=== PATIENT | male | born 1950 | race Caucasian/White ===

== ENCOUNTER 2017-08-20 10:19 | Emergency (ER) | payer MEDICARE, OTHER ==
--- NOTE | 2017-08-20 13:03 | ED Physician Documentation ---
PD HPI SKIN - Stated complaint Stated Complaint: CHEST WOUNDS BLEEDING - Chief complaint Chief Complaint: General - History obtained from History obtained from: Patient - History of Present Illness Timing - onset: How many weeks ago (several) Timing - duration: Weeks Timing - details: Gradual onset (he says he has had sore on chest that has raised edges and he "picks at it" sometimes. It has not gone away. The past 2-3 weeks he has had growth of tissue/swelling to the area and it has started bleeding the past couple of days.) Location: Chest (upper sternal area.) Quality / character: Swelling. No: Painful, Vesicular Associated symptoms: No: Fever, Joint pain Similar symptoms before: Has not had sx before Recently seen: Not recently seen (he says he went to Derm office and tried to get appt but was given one couple weeks out. PCP office gave appt for over a week.) Review of Systems Constitutional: denies: Fever, Chills Skin: reports: Lesions Endocrine: denies: Weight loss PD PAST MEDICAL HISTORY - Past Medical History Cardiovascular: None Respiratory: None Neuro: None Endocrine/Autoimmune: None - Present Medications Home Medications: Ambulatory Orders Medication Instructions Recorded Confirmed Mupirocin 1 applic TP TID #15 oint...g. 08/20/17 - Allergies Allergies/Adverse Reactions: Allergies Allergy/AdvReac Type Severity Reaction Status Date / Time codeine AdvReac Nausea Verified 08/20/17 10:32 - Living Situation Living Situation: reports: Alone Living Arrangement: reports: At home PD ED PE NORMAL - Vitals Vital signs reviewed: Yes - General General: Alert and oriented X 3, No acute distress, Well developed/nourished - Neck Neck: Supple, no meningeal sign, No adenopathy - Cardiac Cardiac: RRR, No murmur - Respiratory Respiratory: No respiratory distress, Clear bilaterally - Derm Derm: Normal color, Warm and dry, Other (upper sternal area has rounded skin lesion with raised edges about 2 1/2 cm rounded. The center of it has raised area of red granulation tissue that is some tender, but hyperemic and has oozing of blood at spots. No purulence and does not look infected. The lesion is freely moveable from the structures underneath, so just dermal lesion. ) Results - Vitals Vitals: Oxygen O2 Source Room air Procedures - Laceration (location) upper sternal chest Length in cm: 3 (incisional biopsy with closure) Wound type: Into subcut fat, Clean, Other (local anesth and then I made eliptical incision clearing lesion margins by 2-3 mm to clear skin. Removed it en whole and sent in specimen container to lab.) Neurovascular status: Sensory intact Anesthesia: Lidocaine 1% with epi Wound Preparation: Chlorhexadine Deep layer closure: Vicryl, size #-0 - enter number (6), Other (with 2 sutures of small venous bleeding sites. Monsels solution also used to stop capillary bleeding.) Skin layer closure: Nylon, Running, Size #-0 - enter number (4) Other: Patient tolerated well, No complications, Neurovascular intact, Dressing applied, Tetanus UTD Complexity: Intermediate PD MEDICAL DECISION MAKING - ED course Complexity details: considered differential (he has had small sore "dime sized" that had raised edges and he said he would "pick at it" and is now with swollen granulation tissue and some bleeding of it. Seemed reasonable to just excise it and close skin. He says he tried to get appt with Derm but was 2 weeks out and PCP was a week or more. Talked with patient and he would prefer that. ), d/w patient - Sepsis Event Vital Signs: Oxygen O2 Source Room air Departure - Departure Disposition: 01 Home, Self Care Clinical Impression: Skin lesion of chest wall, Status post excisional biopsy Condition: Stable Record reviewed to determine appropriate education?: Yes Instructions: ED Laceration All Follow-Up: LEIGH ANN RUIZ [Primary Care Provider] - Prescriptions: Mupirocin 1 applic TP TID #15 oint...g. Comments: It is okay to wash and shower. Clean off the wound twice a day with soap and water, or peroxide and water. Apply some antibiotic ointment to it to keep it moist. Also to watch for signs of infection such as purulence, redness or increasing pain. Return to your primary care or the ER at the specified time for suture removal. Tylenol or ibuprofen if needed for pains. Suture removal approximately 10 days. We presumably should have the pathology report back on the lesion at that time as well. Discharge Date/Time: 08/20/17 14:37
[2017-08-20] MEDS ORDERED: MUPIROCIN 2% OINT 1 GM TOP STA (13:59)
[2017-08-20 14:13] VITALS: BP 148/90
== END 2017-08-20 14:37 | disposition home or self-care (01) ==
LOC: ED 10:19
DX: L98.9 Disorder of the skin and subcutaneous tissue, unspecified (principal); Z98.890 Other specified postprocedural states
CPT/HCPCS: 12032; 99283; A9270

== ENCOUNTER 2017-08-31 13:01 | Emergency (ER) | payer MEDICARE, OTHER ==
[2017-08-31 13:17] VITALS: BP 117/69
--- NOTE | 2017-08-31 13:34 | ED Physician Documentation ---
PD HPI WOUND RECHECK - Stated complaint Stated Complaint: WOUND CHECK - Chief complaint Chief Complaint: Wound - Histroy obtained from History obtained from: Patient - History of Present Illness Location: Chest Pain level max: 0 Pain level now: 0 Associated symptoms: No: Fever, Redness, Swelling, Drainage Recently seen: Emergency Dept (08/20) - Additional information Additional information: Patient is a 67-year-old male who presents to the emergency department stating that he had a growth removed from his chest a few weeks ago which was positive for squamous cell carcinoma. Was informed to follow-up with his primary care provider and/or dermatology, but came here instead. Review of Systems Constitutional: denies: Fever, Chills Respiratory: denies: Cough GI: denies: Nausea, Vomiting, Diarrhea Skin: denies: Rash Musculoskeletal: denies: Neck pain, Back pain Neurologic: denies: Headache PD PAST MEDICAL HISTORY - Past Medical History Cardiovascular: None Respiratory: None Neuro: None Endocrine/Autoimmune: None - Past Surgical History Past Surgical History: Yes Ortho: Other - Present Medications Home Medications: Ambulatory Orders Medication Instructions Recorded Confirmed Mupirocin 1 applic TP TID #15 oint...g. 08/20/17 - Allergies Allergies/Adverse Reactions: Allergies Allergy/AdvReac Type Severity Reaction Status Date / Time codeine AdvReac Nausea Verified 08/20/17 10:32 - Social History Does the pt smoke?: No Smoking Status: Never smoker Does the pt drink ETOH?: No Does the pt have substance abuse?: No - Immunizations Immunizations are current?: No PD ED PE NORMAL - Vitals Vital signs reviewed: Yes - General General: Alert and oriented X 3, No acute distress - HEENT HEENT: Moist mucous membranes - Neck Neck: Supple, no meningeal sign - Cardiac Cardiac: RRR - Respiratory Respiratory: No respiratory distress, Clear bilaterally - Derm Derm: Warm and dry, Other (healing incision to anterior chest wall. slight bleeding. sutures in place.) - Neuro Neuro: Alert and oriented X 3 - Psych Psych: Normal mood, Normal affect Results - Vitals Vitals: Vital Signs - 24 hr 08/31/17 13:13 Temperature 36.7 C Heart Rate 81 Respiratory 18 Rate Blood Pressure 117/69 O2 Saturation 98 Oxygen O2 Source Room air PD MEDICAL DECISION MAKING - ED course Complexity details: reviewed old records, considered differential, d/w patient, d/w PMD ED course: Patient is a 67-year-old male who presents to the emergency department after having a squamous cell carcinoma removed off of his chest wall here approximately 11 days ago. Sutures did not appear ready to be removed at this time. I did call his primary care provider, Dr. Ruiz who will put in a urgent dermatology referral for him. Patient counseled regarding signs and symptoms for which I believe and urgent re-evaluation would be necessary. Patient with good understanding of and agreement to plan and is comfortable going home at this time This document was made in part using voice recognition software. While efforts are made to proofread this document, sound alike and grammatical errors may occur. - Sepsis Event Vital Signs: Vital Signs - 24 hr 08/31/17 13:13 Temperature 36.7 C Heart Rate 81 Respiratory 18 Rate Blood Pressure 117/69 O2 Saturation 98 Oxygen O2 Source Room air Departure - Departure Disposition: 01 Home, Self Care Clinical Impression: Squamous cell carcinoma Condition: Good Instructions: Cancer Skin Types Follow-Up: LEIGH ANN RUIZ [Primary Care Provider] - Within 1 week Comments: Follow-up with your doctor or dermatology within 1 week for suture removal. You also need to follow-up with dermatology about the squamous cell carcinoma to see if further treatment is indicated. Make sure to take the pathology report with you. Your doctor placed a urgent referral that should be visible on the [facility] website within 2 days. Discharge Date/Time: 08/31/17 14:20
== END 2017-08-31 14:20 | disposition home or self-care (01) ==
LOC: ED 13:01
DX: C44.529 Squamous cell carcinoma of skin of other part of trunk (principal)
CPT/HCPCS: 99281; 99282

== ENCOUNTER 2018-06-22 18:04 | Outpatient (CLI) | payer MEDICARE, OTHER | END 2018-06-22 18:05 | disposition critical access hospital (66) | LOC: EMS 18:04 | PROVIDERS: ATTEND Surgery | DX: M25.552 Pain in left hip (principal); W01.0XXA Fall on same level from slipping, tripping and stumbling without subsequent striking against object, initial encounter; Y93.K1 Activity, walking an animal | CPT/HCPCS: A0425; A0427 ==

== ENCOUNTER 2018-06-22 18:15 | Inpatient (IN) | payer MEDICARE, OTHER ==
--- NOTE | 2018-06-22 18:36 | ED Physician Documentation ---
History of Present Illness - Stated complaint Stated Complaint: GLF - LEFT HIP INJURY - Chief complaint Chief Complaint: Trauma Ext - History obtained from History obtained from: Patient, EMS - History of Present Illness Timing: Today ( 68-year-old gentleman with history of hip fracture on the right. He fell a week ago and hit his head. He did not seek medical attention at the time. Today he was walking and fell impacting his left hip onto concrete with severe pain but declines pain medication and initial evaluation as he had some on route with the ambulance. He did not hit his head today. He denies drug or alcohol use.) Review of Systems Constitutional: reports: Reviewed and negative Nose: reports: Reviewed and negative Cardiac: reports: Reviewed and negative Respiratory: reports: Reviewed and negative PD PAST MEDICAL HISTORY - Past Medical History Cardiovascular: None Respiratory: None Neuro: None Endocrine/Autoimmune: None Derm: Other - Past Surgical History Past Surgical History: Yes Ortho: Other - Present Medications Home Medications: Ambulatory Orders Medication Instructions Recorded Confirmed No Known Home Medications 06/22/18 06/22/18 - Allergies Allergies/Adverse Reactions: Allergies Allergy/AdvReac Type Severity Reaction Status Date / Time codeine AdvReac Nausea Verified 06/22/18 18:23 - Social History Does the pt smoke?: No Smoking Status: Never smoker Does the pt drink ETOH?: No Does the pt have substance abuse?: No - Immunizations Immunizations are current?: No PD ED PE NORMAL - Vitals Vital signs reviewed: Yes - General General: Alert and oriented X 3, No acute distress, Other (He is somewhat disheveled with poor dentition.) - HEENT HEENT: PERRL, EOMI, Other (There is an abrasion on the left occiput) - Neck Neck: Supple, no meningeal sign, No bony TTP - Cardiac Cardiac: RRR, No murmur - Respiratory Respiratory: No respiratory distress, Clear bilaterally - Abdomen Abdomen: Normal bowel sounds, Soft, Non tender - Back Back: No CVA TTP, No spinal TTP - Extremities Extremities: Other (Left hip is shortened and externally rotated and quite tender. No other lower extremity or any extremity tenderness.) - Neuro Neuro: Alert and oriented X 3, Normal speech - Psych Psych: Normal mood, Normal affect Results - Vitals Vitals: Vital Signs - 24 hr 06/22/18 18:20 Temperature 35.7 C L Heart Rate 78 Respiratory 20 Rate Blood Pressure 142/99 H O2 Saturation 96 Oxygen O2 Source Room air - Labs Labs: Laboratory Tests 06/22/18 06/22/18 06/22/18 18:46 18:46 18:46 WBC 7.8 RBC 4.19 L Hgb 12.1 L Hct 36.1 L MCV 86.1 MCH 28.9 MCHC 33.5 RDW 15.8 H Plt Count 185 MPV 8.7 Neut # (Auto) 5.7 Lymph # (Auto) 1.1 L [place] # (Auto) 0.8 Eos # (Auto) 0.1 Baso # (Auto) 0.0 Absolute Nucleated RBC 0.00 Nucleated RBC % 0.0 PT 12.1 INR 1.1 Sodium 135 Potassium 4.0 Chloride 101 Carbon Dioxide 24 Anion Gap 10.0 BUN 26 H Creatinine 0.9 Estimated GFR (MDRD) 84 L Glucose 84 Calcium 8.4 L Total Bilirubin 0.5 AST 39 ALT 31 Alkaline Phosphatase 73 Total Protein 6.9 Albumin 3.4 Globulin 3.5 Albumin/Globulin Ratio 1.0 Lipase 33 - Rads (name of study) 1v chest Radiology: EMP read contemporaneously (NAD) CT C spine Radiology: EMP read contemporaneously (degen chgs) L Hip XR Radiology: EMP read contemporaneously (Subcapital left femoral neck fracture) CT Head Radiology: EMP read contemporaneously (NAD, old zygoma frx) PD MEDICAL DECISION MAKING - Consults Consults: Consulted (name) (Zohaib Ayers, assembly person ortho at 192, defers to med for admit, npo p mn), Discussed case with (Dr Timmons for admit at 1944) Departure - Departure Disposition: 67 [facility] DC/Xfer Clinical Impression: Femoral neck fracture Qualifiers: Encounter type: initial encounter Fracture type: closed Laterality: left Qualified Code(s): S72.002A - Fracture of unspecified part of neck of left femur, initial encounter for closed fracture Head injury Qualifiers: Encounter type: initial encounter Qualified Code(s): S09.90XA - Unspecified injury of head, initial encounter Condition: Stable
[2018-06-22 18:53] LABS: BASOPHILS % (AUTO) 0.5 %; EOSINOPHILS # (AUTO) 0.1 10^3/uL (0.0-0.7); EOSINOPHILS % (AUTO) 1.4 %; HGB - HEMOGLOBIN 12.1 g/dL (14.0-18.0); LYMPHOCYTES # (AUTO) 1.1 10^3/uL (1.5-3.5); LYMPHOCYTES % (AUTO) 14.7 %; MEAN CORPUSCULAR HEMOGLOBIN 28.9 pg (27.0-31.0); MEAN CORPUSCULAR HGB CONC 33.5 g/dL (32.0-36.0); MEAN CORPUSCULAR VOLUME 86.1 fL (80.0-94.0); MEAN PLATELET VOLUME 8.7 fL (7.4-11.4); MONOCYTES # (AUTO) 0.8 10^3/uL (0.0-1.0); MONOCYTES % (AUTO) 9.8 %; NEUTROPHILS # (AUTO) 5.7 10^3/uL (1.5-6.6); NEUTROPHILS % (AUTO) 73.6 %; PLT - PLATELET COUNT 185 10^3/uL (130-450); RED BLOOD COUNT 4.19 10^6/uL (4.70-6.10); RED CELL DISTRIBUTION WIDTH 15.8 % (12.0-15.0); WHITE BLOOD COUNT 7.8 x10^3/uL (4.8-10.8)
[2018-06-22 18:57] LABS: INR 1.1 (0.8-1.2); PT - PROTHROMBIN TIME 12.1 secs (9.9-12.6)
[2018-06-22 19:09] LABS: ALBUMIN 3.4 g/dL (3.2-5.5); BILIRUBIN,TOTAL 0.5 mg/dL (0.2-1.0); CALCIUM 8.4 mg/dL (8.5-10.3); CREATININE 0.9 mg/dL (0.6-1.2); TOTAL PROTEIN 6.9 g/dL (6.7-8.2)
--- NOTE | 2018-06-22 19:28 | CT Report ---
Reason: head inj Procedure Date: 06/22/2018 Accession Number: [id number] / [id number] Procedure: CT - CERVICAL SPINE WO CPT Code: FULL RESULT: EXAM: CT CERVICAL SPINE WITHOUT CONTRAST DATE: 06/22/2018 07:07 PM. HISTORY: Fall, pain. COMPARISONS: None. TECHNIQUE: Thin-section axial images were acquired of the cervical spine without contrast. Post-processing: Coronal and sagittal reformats. Other: None. In accordance with CT protocol optimization, one or more of the following dose reduction techniques were utilized for this exam: automated exposure control, adjustment of mA and/or KV based on patient size, or use of iterative reconstructive technique. FINDINGS: Alignment: No scoliosis or spondylolisthesis. Bones: No fracture or bone lesion. Interspace Levels/Facets: Disk space narrowing at all levels with marginal osteophytes. Moderate to marked generalized degenerative changes worst at C3-C4 on the right and C4-C5 on the left. Musculature: Unremarkable. Other: The paravertebral and prevertebral soft tissues are unremarkable. The lung apices are clear. IMPRESSION: Degenerative changes. No acute disease. RADIA
--- NOTE | 2018-06-22 19:29 | XRAY Report ---
Reason: preop Procedure Date: 06/22/2018 Accession Number: [id number] / [id number] Procedure: XR - Chest 1 View X-Ray CPT Code: 85006 FULL RESULT: EXAM: CHEST RADIOGRAPHY EXAM DATE: 06/22/2018 07:21 PM. CLINICAL HISTORY: Preop. COMPARISON: XR CHEST 1 VIEWS 03/14/2008 5:28 PM. TECHNIQUE: 1 view. FINDINGS: Lungs/Pleura: No focal opacities evident. No pleural effusion. No pneumothorax. Mediastinum: Normal heart size. Tortuous aorta. Other: None. IMPRESSION: Unremarkable portable chest radiograph. RADIA
[2018-06-22] MEDS ORDERED: HYDROmorphone 1 MG/ML CARPUJECT IVP STA (19:36)
--- NOTE | 2018-06-22 19:38 | XRAY Report ---
Reason: hip inj Procedure Date: 06/22/2018 Accession Number: [id number] / [id number] Procedure: XR - Hip w/Pelvis 2-3V LT CPT Code: FULL RESULT: EXAM: LEFT HIP RADIOGRAPHY. EXAM DATE: 06/22/2018 07:21 PM. CLINICAL HISTORY: Hip injury. COMPARISON: None. TECHNIQUE: 2 views. FINDINGS: Bones: There is a angulated subcapital left femoral neck fracture. Status post right hip ORIF noting dynamic hip screw and multiple greater trochanter fixation screws. Extensive right hip hypertrophic bony change is present. Joints: Normal. No dislocation. The hip joint space is preserved. Soft Tissues: Normal. No soft tissue swelling. IMPRESSION: 1. Subcapital left femoral neck fracture. RADIA
--- NOTE | 2018-06-22 21:32 | CT Report ---
Reason: head inj Procedure Date: 06/22/2018 Accession Number: [id number] / [id number] Procedure: CT - HEAD WO CPT Code: FULL RESULT: EXAM: CT HEAD EXAM DATE: 06/22/2018 07:07 PM. CLINICAL HISTORY: Fall, pain. COMPARISON: CERVICAL SPINE W/O 06/22/2018 6:54 PM. TECHNIQUE: Multiaxial CT images were obtained from the foramen magnum to the vertex. Reformats: Sagittal and coronal. IV contrast: None. In accordance with CT protocol optimization, one or more of the following dose reduction techniques were utilized for this exam: automated exposure control, adjustment of mA and/or KV based on patient size, or use of iterative reconstructive technique. FINDINGS: Parenchyma: No intraparenchymal hemorrhage. No evidence of mass, midline shift, or CT findings of infarction. Combs-white differentiation is distinct. Extraaxial Spaces: Normal for age. No subdural or epidural collections. Ventricles: Normal in size and position. Sinuses and Orbits: Imaged paranasal sinuses, orbits, and mastoids show no significant abnormality. Bones: Deformity of right zygomatic arch most likely due to old trauma. Otherwise unremarkable. Other: None. IMPRESSION: No acute disease. RADIA
--- NOTE | 2018-06-22 21:43 | HISTORY & PHYSICAL EXAMINATION ---
Chief Complaint - Chief Complaint Chief Complaint: left hip pain History of Present Illness - Admitted From Admitted From:: [facility] ED - History Obtained From Records Reviewed: yes History obtained from: patient - History of Present Illness HPI Comment/Other: Patient seen on 06/22/18 at 20:30pm Patient is a 68 y/o male who presented to the ED after a mechanical fall today. He lives and works on a [employer]. He was trying to put the [employer] player's dog away when it ran off, suddenly pulling on the leash he was holding and throwing him off balance. He fell landing on his left hip and also hitting his occiput on a wall as he fell. He did not black out. He has some bloody oozing from the wound on his occiput but no significant laceration. He is very dishevelled and cracked callouses on his hand. His fingernails appear to have significant fungal infection and a significant amount of dirt underneath them. He denies chest pain, FELICIA, abd pain, nausea, vomiting, diarrhea, fever or chills. He has significant pain in his left hip. Work up in the ED showed a subcapital left femoral neck fracture. As a result he is being admitted for further management History - Past Medical History Cardiovascular: reports: None Respiratory: reports: None Neuro: reports: None Endocrine/Autoimmune: reports: None GI: reports: None : reports: None HEENT: reports: None Psych: reports: None Musculoskeletal: reports: None Derm: reports: Other (Hx of basal cell skin cancer s/p resection) MRSA Hx?: No - Past Surgical History Ortho: reports: Hip replacement (right hip), Other HEENT: reports: Cataracts Derm: reports: Skin cancer surgery (basal cell on right ear) - Family & Social History Family History: Mother: Hypertension Social History Notes: He lives and works on a [employer]. He denies alcohol use, tobacco use or illicit drug use - Substance History Use: Uses substance without health or social issues: NONE - POLST Patient has POLST: Yes POLST Status: Full Code Meds/Allgy - Home Medications Home Medications: Ambulatory Orders Medication Instructions Recorded Confirmed No Known Home Medications 06/22/18 06/22/18 - Allergies Allergies/Adverse Reactions: Allergies Allergy/AdvReac Type Severity Reaction Status Date / Time codeine AdvReac Nausea Verified 06/22/18 18:23 Review of Systems - Constitutional Constitutional: denies: Fever, Chills - Eyes Eyes: denies: Blurred vision, Vision loss, Dipolpia - Ears, Nose & Throat Ears, Nose & Throat: reports: Dental decay. denies: Vertigo, Sore throat, Hoarseness - Cardiovascular Cariovascular: denies: Irregular heart rate, Chest pain, Edema, Lightheadedness, Syncope - Respiratory Respiratory: denies: Cough, Sputum production, Wheezing, Hemoptysis, Orthopnea - Gastrointestinal Gastrointestinal: denies: Abdominal pain, Abdominal distention, Constipation, Diarrhea, Nausea, Vomiting - Genitourinary Genitourinary: denies: Dysuria, Frequency, Urgency, Hematuria - Musculoskeletal Musculoskeletal: reports: Joint pain (left hip). denies: Gout - Integumentary Integumentary: reports: Nail changes (onychomycosis). denies: Rash, Pruritis, Lesions, Dryness - Neurological Neurological: denies: General weakness, Focal weakness, Headache, Dizziness - Psychiatric Psychiatric: denies: Depression, Anxiety - Endocrine Endocrine: denies: Polyuria, Polydypsia - Hematologic/Lymphatic Hematologic/Lymphatic: denies: Anemia, Bruising, Petechiae Prior Level of Functionality: Patient is independent of activities of daily living He lives and works on a [employer] [place] Has poor dentition and is very dishevelled Exam - Vital Signs Vital Signs: Vital Signs x48h Temp Pulse Resp BP Pulse Ox 06/22/18 18:20 35.7 C L 78 20 142/99 H 96 - Physical Exam General Appearance: positive: Alert, Moderate distress. negative: Anxious, Lethargic Eyes Bilateral: positive: Normal inspection, PERRL, EOMI, No scleral icterus ENT: positive: ENT inspection nml, Pharynx nml, No signs of dehydration Neck: positive: Nml inspection, No JVD, Trachea midline Respiratory: positive: Chest non-tender, No respiratory distress. negative: Wheezes, Rales, Rhonchi Cardiovascular: positive: Regular rate & rhythm, No murmur. negative: JVD present Abdomen: positive: Non-tender, No organomegaly, Nml bowel sounds, No distention. negative: Guarding, Rebound Back: positive: Nml inspection Skin: positive: No rash, Dry, Other (has significant calluses over hand. dishevelled) Extremities: positive: Other (left leg is temporally/currently short and rotated). negative: Non-tender Neurologic/Psychiatric: positive: Oriented x3, Motor nml, Sensation nml Conclusion/Plan - Problem List (1) Femoral neck fracture Conclusion/Plan: NPO after midnight Pain management with dilaudid and norco Dr Ayers was contacted by the ED and will see the patient EKG showed normal sinus rhythm. Chest xray is unremarkable. 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 Revised cardiac risk index: Patient has no predictors Per RCRI risk of cardiac event during surgery is 0.4% Patient is optimized for surgery Qualifiers: Encounter type: initial encounter Fracture type: closed Laterality: left Qualified Code(s): S72.002A - Fracture of unspecified part of neck of left femur, initial encounter for closed fracture - Lab Results Fish Bones: 06/22/18 18:46 06/22/18 18:46 - EKG Results EKG Interpreted Independently: Yes EKG Comparison: Other (EKG shows normal sinus rhythm. No previous for comparism) Core Measures - Anticipated LOS I expect patient to be DC'd or transferred within 96 hours.: Yes - DVT/VTE - Prophylaxis VTE/DVT Device ordered at admit?: Yes
[2018-06-22] MEDS: SODIUM CHLORIDE 0.9% 1,000 ML IV SCH (22:16)
[2018-06-22] MEDS: SODIUM CHLORIDE FLUSH 0.9% 10 ML SYRINGE IVP PRN (22:16)
[2018-06-22] MEDS: HYDROmorphone 0.5 MG/0.5 ML SYRINGE IVP PRN (22:42)
[2018-06-23] MEDS: SODIUM CHLORIDE FLUSH 0.9% 10 ML SYRINGE IVP SCH ×3 (01:15→17:46)
[2018-06-23] MEDS: HYDROmorphone 0.5 MG/0.5 ML SYRINGE IVP PRN ×4 (01:43→12:44)
[2018-06-23 05:05] LABS: CALCIUM 8.5 mg/dL (8.5-10.3); CREATININE 0.9 mg/dL (0.6-1.2)
[2018-06-23 05:07] LABS: BASOPHILS % (AUTO) 0.3 %; EOSINOPHILS % (AUTO) 0.3 %; HGB - HEMOGLOBIN 11.6 g/dL (14.0-18.0); LYMPHOCYTES # (AUTO) 0.7 10^3/uL (1.5-3.5); LYMPHOCYTES % (AUTO) 8.2 %; MEAN CORPUSCULAR HEMOGLOBIN 28.7 pg (27.0-31.0); MEAN CORPUSCULAR HGB CONC 33.1 g/dL (32.0-36.0); MEAN CORPUSCULAR VOLUME 86.6 fL (80.0-94.0); MEAN PLATELET VOLUME 8.5 fL (7.4-11.4); MONOCYTES # (AUTO) 0.8 10^3/uL (0.0-1.0); MONOCYTES % (AUTO) 9.9 %; NEUTROPHILS # (AUTO) 6.7 10^3/uL (1.5-6.6); NEUTROPHILS % (AUTO) 81.3 %; PLT - PLATELET COUNT 173 10^3/uL (130-450); RED BLOOD COUNT 4.03 10^6/uL (4.70-6.10); RED CELL DISTRIBUTION WIDTH 16.2 % (12.0-15.0); WHITE BLOOD COUNT 8.3 x10^3/uL (4.8-10.8)
[2018-06-23] MEDS: HYDROcod/ACETAM 5/325 MG TABLET PO PRN (08:08)
[2018-06-23] MEDS: SODIUM CHLORIDE 0.9% 1,000 ML IV SCH ×2 (08:08→17:44)
[2018-06-23] MEDS: POLYETHYLENE GLYCOL 3350 17 GM PACKET PO SCH (08:08)
--- NOTE | 2018-06-23 09:24 | CONSULTATION NOTE ---
DATE OF SERVICE: 06/23/2018 Physician: Shahzad Ayers MD REQUESTING PHYSICIAN: Payton Gabriel MD REASON FOR CONSULTATION: Left hip fracture. HISTORY OF PRESENT ILLNESS: Patient is a 68-year-old male who was walking at his place of work and his domicile as well when he fell and injured his left hip. He had hip pain, was unable to ambulate, was brought by ambulance to the hospital. MEDICAL HISTORY: The patient's prior medical history is fairly unremarkable, but mainly remarkable for the fact that this patient has not had medical care of any kind for an extensive period of time because of lack of insurance and lack of money and also has not had dental care. The patient tries to take no medication, and he does not recall when he last had a full physical exam. He does report that he has abused alcohol in the past but no longer drinks. He does not smoke and never did. He does not use illicit drugs. ALLERGIES: HE IS ALLERGIC TO CODEINE WITH NAUSEA. PHYSICAL EXAMINATION: His physical exam shows a 68-year-old male who seems to not be in distress and fairly calm and somewhat conversant and disoriented. The patient has a left occiput minor abrasion from a fall that occurred prior to this event. He otherwise has normal-appearing skin, other than forearms that have multiple scabs and scratches on them [place]. His left lower extremity is shortened and rotated externally. He has a scar on his right hip from prior hip fracture surgery. The patient's left lower extremity is neurovascularly intact. He has pain with movement of his extremity. He has intact skin. LABORATORY DATA: His laboratory results are fairly unremarkable with mild anemia with hematocrit 36.1 and mild malnutrition indices with albumin 3.4. DIAGNOSTIC DATA: Review of x-ray shows the patient to have a displaced femoral neck fracture. RECOMMENDATION: Patient undergo a hemiarthroplasty of his hip. He does not appear to have hip arthritis and has not complained of hip pain previously. The patient understands the discussed procedure with its attendant potential risks and complications and is willing to proceed. TD: 06/23/2018 08:48 MARTA
--- NOTE | 2018-06-23 11:35 | ANESTHESIA ---
Pre-Anesthesia VS, & Labs - Diagnosis Fx L hip - Procedure L hip hemiarthroplasty Vital Signs: Temp Pulse Resp BP Pulse Ox 36.5 C 75 16 152/80 H 97 06/23/18 08:14 06/23/18 08:14 06/23/18 08:14 06/23/18 08:14 06/23/18 08:14 Height 5 ft 9 in Weight (kg) 75 kg Body Mass Index 24.4 - NPO >8 hours - Lab Results Current Lab Results: Laboratory Tests 06/23/18 04:40: Sodium 134 L, Potassium 4.3, Chloride 102, Carbon Dioxide 24, Anion Gap 8.0, BUN 22 H, Creatinine 0.9, Estimated GFR (MDRD) 84 L, Glucose 96, Calcium 8.5 06/23/18 04:40: WBC 8.3, RBC 4.03 L, Hgb 11.6 L, Hct 34.9 L, MCV 86.6, MCH 28.7, MCHC 33.1, RDW 16.2 H, Plt Count 173, MPV 8.5, Neut # (Auto) 6.7 H, Lymph # (Auto) 0.7 L, [place] # (Auto) 0.8, Eos # (Auto) 0.0, Baso # (Auto) 0.0, Absolute Nucleated RBC 0.01, Nucleated RBC % 0.1 06/22/18 18:46: PT 12.1, INR 1.1 06/22/18 18:46: Sodium 135, Potassium 4.0, Chloride 101, Carbon Dioxide 24, Anion Gap 10.0, BUN 26 H, Creatinine 0.9, Estimated GFR (MDRD) 84 L, Glucose 84, Calcium 8.4 L, Total Bilirubin 0.5, AST 39, ALT 31, Alkaline Phosphatase 73, Total Protein 6.9, Albumin 3.4, Globulin 3.5, Albumin/Globulin Ratio 1.0, Lipase 33 06/22/18 18:46: WBC 7.8, RBC 4.19 L, Hgb 12.1 L, Hct 36.1 L, MCV 86.1, MCH 28.9, MCHC 33.5, RDW 15.8 H, Plt Count 185, MPV 8.7, Neut # (Auto) 5.7, Lymph # (Auto) 1.1 L, [place] # (Auto) 0.8, Eos # (Auto) 0.1, Baso # (Auto) 0.0, Absolute Nucleated RBC 0.00, Nucleated RBC % 0.0 Lab results reviewed: Yes Fish Bones: 06/23/18 04:40 06/23/18 04:40 Home Medications and Allergies Home Medications: Ambulatory Orders No Known Home Medications 06/22/18 Active Medications Hydrocodone Bitart/Acetaminophen ([place] 5/325) 1 tab PO Q4HR PRN PRN Reason: Pain 5 to 7 Last Admin: 06/23/18 08:08 Dose: 1 tab Hydromorphone HCl (Dilaudid Inj Syringe) 0.5 mg IVP Q3H PRN PRN Reason: Pain 8 to 10 Last Admin: 06/23/18 09:33 Dose: 0.5 mg Sodium Chloride (Normal Saline 0.9%) 1,000 mls @ 100 mls/hr IV .Q10H AILEEN Last Admin: 06/23/18 08:08 Dose: 100 mls/hr Polyethylene Glycol (Miralax) 17 gm PO DAILY [facility] Last Admin: 06/23/18 08:08 Dose: 17 gm Sodium Chloride (Normal Saline Flush 0.9%) 10 ml IVP PRN PRN PRN Reason: NEEDED PER PROVIDER ORDERS Last Admin: 06/22/18 22:16 Dose: 10 ml Sodium Chloride (Normal Saline Flush 0.9%) 10 ml IVP 0100,0900,1700 [facility] Last Admin: 06/23/18 08:09 Dose: Not Given No Known Home Medications 06/22/18 Allergies/Adverse Reactions: Allergies Allergy/AdvReac Type Severity Reaction Status Date / Time codeine AdvReac Nausea Verified 06/22/18 18:23 Anes History & Medical History - Anesthetic History Anesthesia Complications: reports: No previous complications Family history of Anesthesia Complications: Denies Family history of Malignant Hyperthermia: Denies - Medical History Cardiovascular: reports: None, Other (hx pericarditis 2006ish. hospitalized for 24 hours) Pulmonary: reports: None Gastrointestinal: reports: None Urinary: reports: None Neuro: reports: None Musculoskeletal: reports: None Endocrine/Autoimmune: reports: None Blood Disorders: reports: None Skin: reports: Other (Hx of basal cell skin cancer s/p resection) Smoking Status: Never smoker - Surgical History Eyes Ears Nose Throat (EENT): Cataracts Orthopedic: Hip replacement (right hip), Other Dermatologic: Skin cancer surgery (basal cell on right ear) Exam General: Alert, Oriented x3, Cooperative Dental: Loose/Frag, Poor dentition, Other (most teeth missing, others in poor condition/color. None obviously loose) Respiratory: Normal breath sounds, No respiratory distress Cardiovascular: Regular rate Neurological: Normal speech Mental/Cognitive Status: Alert/Oriented X3 Cognitive Status: Within normal limits Plan Anesthesia Type: General, Spinal (pt refuses spinal) Consent for Procedure(s) Verified and Reviewed: Yes Code Status: Attempt Resuscitation ASA classification: 2-Mild systemic disease Is this case an emergency?: No
[2018-06-23] MEDS ORDERED: BUPIVACAINE 0.5%-EPI 1:200000 PF 30 ML VIAL ONE (13:21)
[2018-06-23] MEDS ORDERED: ceFAZolin 1 GM VIAL IV ONE (15:00)
[2018-06-23] MEDS ORDERED: fentaNYL 100 MCG/2 ML VIAL IVP ONE (15:00)
[2018-06-23] MEDS ORDERED: ACETAMINOPHEN 1,000 MG/100 ML 100 ML IV ONE (15:00)
[2018-06-23] MEDS ORDERED: TRANEXAMIC ACID 1,000 MG/10 ML VIAL IV ONE (15:00)
[2018-06-23] MEDS ORDERED: PROPOFOL 200 MG/20 ML VIAL IVP ONE (15:00)
[2018-06-23] MEDS ORDERED: ONDANSETRON 4 MG/2 ML VIAL IVP ONE (15:00)
[2018-06-23] MEDS ORDERED: GLYCOPYRROLATE 1 MG/5 ML VIAL IVP ONE (15:00)
[2018-06-23] MEDS ORDERED: ROCURONIUM 50 MG/5 ML VIAL IVP ONE (15:00)
[2018-06-23] MEDS ORDERED: LIDOCAINE-MPF 2% 5 ML VIAL IM ONE (15:00)
[2018-06-23] MEDS ORDERED: NEOSTIGMINE 1 MG/1 ML 10 ML MDV IVP ONE (15:00)
[2018-06-23] MEDS ORDERED: MIDAZOLAM 2 MG/2 ML VIAL IVP ONE (15:00)
[2018-06-23] MEDS ORDERED: BUPIVACAINE 0.5%-EPI 1:200000 PF 10 ML VIAL SUBQ ONE (15:19)
[2018-06-23] MEDS ORDERED: LACTATED RINGERS 1,000 ML IV ONE (15:20)
[2018-06-23] MEDS ORDERED: SODIUM CHLORIDE 0.9% 1,000 ML IV ONE (15:20)
--- NOTE | 2018-06-23 15:40 | PROVIDER PROGRESS NOTE ---
Assessment/Plan - Problem List (1) Femoral neck fracture Qualifiers: Encounter type: initial encounter Fracture type: closed Laterality: left Qualified Code(s): S72.002A - Fracture of unspecified part of neck of left femur, initial encounter for closed fracture Assessment/Plan: Patient awaiting orthopedic surgery, is being kept npo and pain meds prn. - Current Meds Current Meds: Current Medications Generic Name Dose Route Start Last Admin Trade Name Freq PRN Reason Stop Dose Admin Hydrocodone Bitart/Acetaminophen 1 tab 06/22/18 21:07 06/23/18 08:08 [place] 5/325 PO 1 tab Q4HR PRN Administration Pain 5 to 7 Hydromorphone HCl 0.5 mg 06/22/18 21:07 06/23/18 12:44 Dilaudid Inj Syringe IVP 0.5 mg Q3H PRN Administration Pain 8 to 10 Sodium Chloride 1,000 mls @ 100 mls/hr 06/22/18 22:00 06/23/18 08:08 Normal Saline 0.9% IV 100 mls/hr .Q10H AILEEN Administration Polyethylene Glycol 17 gm 06/23/18 09:00 06/23/18 08:08 Miralax PO 17 gm DAILY AILEEN Administration Sodium Chloride 10 ml 06/22/18 21:07 06/22/18 22:16 Normal Saline Flush 0.9% IVP 10 ml PRN PRN Administration NEEDED PER PROVIDER ORDERS Sodium Chloride 10 ml 06/23/18 01:00 06/23/18 08:09 Normal Saline Flush 0.9% IVP Not Given 0100,0900,1700 AILEEN - Lab Result Fish Bone Diagrams: 06/23/18 04:40 06/23/18 04:40 Subjective - Subjective Patient Reports: Feeling Better Objective Vital Signs: Vital Signs - 24 hr 06/22/18 06/22/18 06/22/18 18:20 20:23 21:39 Temperature 35.7 C L 36.7 C Heart Rate 78 71 74 Heart Rate [ Brachial] Heart Rate [ Radial] Respiratory 20 18 16 Rate Blood Pressure 142/99 H 135/83 H 136/82 H Blood Pressure [Right Brachial artery] O2 Saturation 96 98 99 06/22/18 06/23/18 06/23/18 21:50 00:55 08:14 Temperature 36.6 C 36.4 C L 36.5 C Heart Rate Heart Rate [ 75 Brachial] Heart Rate [ 78 73 Radial] Respiratory 16 18 16 Rate Blood Pressure Blood Pressure 129/89 H 134/74 H 152/80 H [Right Brachial artery] O2 Saturation 97 95 97 Oxygen O2 Source Room air I&O (Last 24 Hrs): Intake and Output Totals x24h 06/21/18 06/22/18 06/23/18 23:59 23:59 23:59 Intake Total 260 986.667 Output Total 2125 Balance 260 -1138.333 General: Alert Cardiovascular: Regular rate Respiratory: No respiratory distress Extremities: No edema - Results Results: Laboratory Results WBC 8.3 x10^3/uL (4.8-10.8) 06/23/18 04:40 RBC 4.03 10^6/uL (4.70-6.10) L 06/23/18 04:40 Hgb 11.6 g/dL (14.0-18.0) L 06/23/18 04:40 Hct 34.9 % (42.0-52.0) L 06/23/18 04:40 MCV 86.6 fL (80.0-94.0) 06/23/18 04:40 MCH 28.7 pg (27.0-31.0) 06/23/18 04:40 MCHC 33.1 g/dL (32.0-36.0) 06/23/18 04:40 RDW 16.2 % (12.0-15.0) H 06/23/18 04:40 Plt Count 173 10^3/uL (130-450) 06/23/18 04:40 MPV 8.5 fL (7.4-11.4) 06/23/18 04:40 Neut # (Auto) 6.7 10^3/uL (1.5-6.6) H 06/23/18 04:40 Lymph # (Auto) 0.7 10^3/uL (1.5-3.5) L 06/23/18 04:40 [place] # (Auto) 0.8 10^3/uL (0.0-1.0) 06/23/18 04:40 Eos # (Auto) 0.0 10^3/uL (0.0-0.7) 06/23/18 04:40 Baso # (Auto) 0.0 10^3/uL (0.0-0.1) 06/23/18 04:40 Absolute Nucleated RBC 0.01 x10^3/uL 06/23/18 04:40 Nucleated RBC % 0.1 /100WBC 06/23/18 04:40 PT 12.1 secs (9.9-12.6) 06/22/18 18:46 INR 1.1 (0.8-1.2) 06/22/18 18:46 Sodium 134 mmol/L (135-145) L 06/23/18 04:40 Potassium 4.3 mmol/L (3.5-5.0) 06/23/18 04:40 Chloride 102 mmol/L (101-111) 06/23/18 04:40 Carbon Dioxide 24 mmol/L (21-32) 06/23/18 04:40 Anion Gap 8.0 (6-13) 06/23/18 04:40 BUN 22 mg/dL (6-20) H 06/23/18 04:40 Creatinine 0.9 mg/dL (0.6-1.2) 06/23/18 04:40 Estimated GFR (MDRD) 84 (>89) L 06/23/18 04:40 Glucose 96 mg/dL (70-100) 06/23/18 04:40 Calcium 8.5 mg/dL (8.5-10.3) 06/23/18 04:40 Total Bilirubin 0.5 mg/dL (0.2-1.0) 06/22/18 18:46 AST 39 IU/L (10-42) 06/22/18 18:46 ALT 31 IU/L (10-60) 06/22/18 18:46 Alkaline Phosphatase 73 IU/L (42-121) 06/22/18 18:46 Total Protein 6.9 g/dL (6.7-8.2) 06/22/18 18:46 Albumin 3.4 g/dL (3.2-5.5) 06/22/18 18:46 Globulin 3.5 g/dL (2.1-4.2) 06/22/18 18:46 Albumin/Globulin Ratio 1.0 (1.0-2.2) 06/22/18 18:46 Lipase 33 U/L (22-51) 06/22/18 18:46
--- NOTE | 2018-06-23 16:28 | OPERATIVE REPORT ---
Operative Report - General Admit Date: 06/22/18 Procedure Date: 06/23/18 Planned Procedure: left hip bipolar replacement Pre-Op Diagnosis: left femoral neck fracture Procedure Performed: left hip bipolar replacement Post Op Diagnosis: same - Procedure Note Primary Surgeon: samantha Anesthesia Provider: Celeste Lomas Anesthesia Technique: General ET tube Estimated Blood Loss (mL): 250
[2018-06-23] MEDS: ASPIRIN EC 325 MG TABLET PO SCH (17:46)
--- NOTE | 2018-06-23 17:56 | XRAY Report ---
Reason: post op Procedure Date: 06/23/2018 Accession Number: [id number] / [id number] Procedure: XR - Hip w/Pelvis 2-3V LT CPT Code: FULL RESULT: EXAM: LEFT HIP RADIOGRAPHY EXAM DATE: 06/23/2018 05:29 PM. CLINICAL HISTORY: Post op. COMPARISON: HIP W/PELVIS 2-3V LT 06/22/2018 6:59 PM. TECHNIQUE: 2 view. FINDINGS: Status post hip arthroplasty. Alignment through the hip within normal limits. No significant soft tissue abnormalities are seen. IMPRESSION: No emergent findings status post hip arthroplasty. RADIA
[2018-06-23] MEDS: ceFAZolin 2 GM in SODIUM CHLORIDE 0.9% 100ML 100 ML IV SCH (23:00)
[2018-06-24] MEDS ORDERED: LIDOCAINE 2% URO-JET 5 ML SYRINGE UR ONE (00:09)
[2018-06-24] MEDS: SODIUM CHLORIDE FLUSH 0.9% 10 ML SYRINGE IVP SCH ×3 (03:37→17:33)
[2018-06-24] MEDS: SODIUM CHLORIDE 0.9% 1,000 ML IV SCH (03:37)
[2018-06-24] MEDS: HYDROcod/ACETAM 5/325 MG TABLET PO PRN ×2 (05:28→10:47)
[2018-06-24] MEDS: ceFAZolin 2 GM in SODIUM CHLORIDE 0.9% 100ML 100 ML IV SCH (05:28)
[2018-06-24 05:39] LABS: BASOPHILS % (AUTO) 0.2 %; EOSINOPHILS % (AUTO) 0.2 %; HGB - HEMOGLOBIN 10.7 g/dL (14.0-18.0); LYMPHOCYTES # (AUTO) 0.3 10^3/uL (1.5-3.5); LYMPHOCYTES % (AUTO) 3.6 %; MEAN CORPUSCULAR HEMOGLOBIN 29.7 pg (27.0-31.0); MEAN CORPUSCULAR HGB CONC 34.3 g/dL (32.0-36.0); MEAN CORPUSCULAR VOLUME 86.5 fL (80.0-94.0); MEAN PLATELET VOLUME 8.7 fL (7.4-11.4); MONOCYTES % (AUTO) 10.6 %; NEUTROPHILS # (AUTO) 7.8 10^3/uL (1.5-6.6); NEUTROPHILS % (AUTO) 85.4 %; PLT - PLATELET COUNT 145 10^3/uL (130-450); RED BLOOD COUNT 3.62 10^6/uL (4.70-6.10); RED CELL DISTRIBUTION WIDTH 16.1 % (12.0-15.0); WHITE BLOOD COUNT 9.1 x10^3/uL (4.8-10.8)
[2018-06-24 05:53] LABS: CALCIUM 7.7 mg/dL (8.5-10.3); CREATININE 0.8 mg/dL (0.6-1.2)
--- NOTE | 2018-06-24 07:51 | PROVIDER PROGRESS NOTE ---
Subjective - General Admit Date: 06/22/18 Procedure Date: 06/23/18 Post Op Days: 1 Procedure Performed: left hip hemiarthroplasty - Review of Systems Wound/Incisions: positive: Dressing dry and intact Musculoskeletal: positive: Joint pain Objective - Patient Data Reviewed Vital Signs: Yes Vital Signs: Vital Signs x48h Temp Pulse Resp BP BP Pulse Ox 06/24/18 05:51 36.5 C 82 17 117/71 98 06/24/18 00:01 36.3 C L 70 18 106/61 100 Weight: Weight 06/22/18 06/23/18 06/24/18 23:59 23:59 23:59 Weight (kg) 75 kg Intake & Output: Intake and Output Totals x24h 06/22/18 06/23/18 06/24/18 23:59 23:59 23:59 Intake Total 260 2296.667 1538.333 Output Total 2225 1925 Balance 260 71.667 -386.667 - Lab Results Lab Results: 06/24/18 05:15 06/24/18 05:15 Other Lab Results: Lab Results x24hrs 06/24/18 06/24/18 Range/Units 05:15 05:15 WBC 9.1 (4.8-10.8) x10^3/uL RBC 3.62 L (4.70-6.10) 10^6/uL Hgb 10.7 L (14.0-18.0) g/dL Hct 31.3 L (42.0-52.0) % MCV 86.5 (80.0-94.0) fL MCH 29.7 (27.0-31.0) pg MCHC 34.3 (32.0-36.0) g/dL RDW 16.1 H (12.0-15.0) % Plt Count 145 (130-450) 10^3/uL MPV 8.7 (7.4-11.4) fL Neut # (Auto) 7.8 H (1.5-6.6) 10^3/uL Lymph # (Auto) 0.3 L (1.5-3.5) 10^3/uL [place] # (Auto) 1.0 (0.0-1.0) 10^3/uL Eos # (Auto) 0.0 (0.0-0.7) 10^3/uL Baso # (Auto) 0.0 (0.0-0.1) 10^3/uL Absolute Nucleated RBC 0.00 x10^3/uL Nucleated RBC % 0.0 /100WBC Sodium 132 L (135-145) mmol/L Potassium 4.3 (3.5-5.0) mmol/L Chloride 102 (101-111) mmol/L Carbon Dioxide 23 (21-32) mmol/L Anion Gap 7.0 (6-13) BUN 13 (6-20) mg/dL Creatinine 0.8 (0.6-1.2) mg/dL Estimated GFR (MDRD) 96 (>89) Glucose 115 H (70-100) mg/dL Calcium 7.7 L (8.5-10.3) mg/dL - Imaging Results Radiology Imaging: positive: EMP read indepedently - Current Medications Current Medications: Current Medications Generic Name Dose Route Start Last Admin Trade Name Freq PRN Reason Stop Dose Admin Hydrocodone Bitart/Acetaminophen 1 tab 06/22/18 21:07 06/24/18 05:28 [place] 5/325 PO 1 tab Q4HR PRN Administration Pain 5 to 7 Aspirin 325 mg 06/23/18 17:00 06/23/18 17:46 Ecotrin PO Not Given BIDWM AILEEN Hydromorphone HCl 0.5 mg 06/22/18 21:07 06/23/18 12:44 Dilaudid Inj Syringe IVP 0.5 mg Q3H PRN Administration Pain 8 to 10 Sodium Chloride 1,000 mls @ 100 mls/hr 06/22/18 22:00 06/24/18 03:37 Normal Saline 0.9% IV 100 mls/hr .Q10H AILEEN Administration Polyethylene Glycol 17 gm 06/23/18 09:00 06/23/18 08:08 Miralax PO 17 gm DAILY AILEEN Administration Sodium Chloride 10 ml 06/22/18 21:07 06/22/18 22:16 Normal Saline Flush 0.9% IVP 10 ml PRN PRN Administration NEEDED PER PROVIDER ORDERS Sodium Chloride 10 ml 06/23/18 01:00 06/24/18 03:37 Normal Saline Flush 0.9% IVP Not Given 0100,0900,1700 AILEEN - Physical Exam Wound/Incisions: positive: Dressing dry and intact Extremities: positive: Joint swelling Impression/Plan - Problem List Problem List: POD #1 Pt's pain is decreased. He is not having N/V. Plan to begin PT today
[2018-06-24] MEDS: POLYETHYLENE GLYCOL 3350 17 GM PACKET PO SCH (09:41)
[2018-06-24] MEDS: CHOLECALCIFEROL 1,000 UNIT TABLET PO SCH (09:41)
[2018-06-24] MEDS: ASPIRIN EC 325 MG TABLET PO SCH ×2 (09:41→17:31)
[2018-06-24] MEDS: KETOROLAC 15 MG/ML VIAL IVP PRN ×2 (10:47→17:30)
--- NOTE | 2018-06-24 10:50 | OPERATIVE REPORT ---
DATE OF SERVICE: 06/24/2018 Physician: Shahzad Ayers MD PREOPERATIVE DIAGNOSIS: Displaced left femoral neck fracture. POSTOPERATIVE DIAGNOSIS: Displaced left femoral neck fracture. PROCEDURE PERFORMED: Left hip cementless hemiarthroplasty. SURGEON: Shahzad Ayers MD ANESTHESIA: General, Tenisha Lomas CRNA,with postoperative regional block. INDICATIONS FOR SURGERY: The patient is a 68-year-old male who suffered a ground level fall injuring his left hip on 06/22/2018, and was admitted through the emergency room with hip pain and a displace d femoral neck fracture. The patient was seen in consultation by orthopedics, and I recommended to t he patient a hip hemiarthroplasty. FINDINGS AT SURGERY: The patient was found to have a displaced femoral neck fracture with hemarthros is and comminution. His acetabulum, although slightly shallow, did not show any significant arthriti s changes. The patient's bone density appeared fairly decent for cementless fixation. DESCRIPTION OF OPERATIVE PROCEDURE: The patient was taken to the operating room, given a general ane sthetic. He was placed supine. His left hip area was prepped, and then his lower extremities were p repped and draped in standard fashion for an anterior approach. The patient had then a surgical time out among the crew, followed by infiltration of the planned incision site with 0.25% Marcaine with ep inephrine. Following this, an anterior approach was made with an 8 cm incision, and dissection down to the tensor fascia muscle with elevation of its fascial covering, and direct anterior approach to m edial to that muscle with retraction, exposing the underlying soft tissue planes down to the loop of vessels, which were cauterized, and then the fascial tissues overlying the vastus lateralis and allow ing dissection down to the capsule. Once the capsule was encountered, the retractors were carefully positioned around the upper neck of the femur, and around the lesser aspect of the neck, allowing exp osure for capsulectomy and exposure of the fracture and hematoma. At this stage, some of the femoral neck was resected with a saw and exposure was gained of the femora l head, and a corkscrew was used to screw into the head and extract it, at which point it was measure d at 57 mm. The femur was then carefully released and irrigation performed to remove bone fragments, and allow exposure of the femur with tend of the table was dropped slightly to 30 degrees, and the h ip in a [id number] position. In this position, the exposure gained was adequate to access the ca nal and proceeded to a canal-finding followed by sequential broaches up to a size 15 standard offset. With this broach in place, a 57 mm trial head was applied and reduction with a standard neck was re duced into the acetabulum, and this recreated excellent stability, but did seem a bit long, approxima tely 5-6 mm longer than the other extremity, which appears to have chronic shortening post-hip fractu re. It was elected to try another trial at -3 mm neck length, to see if at least a compromise could be made and a closer approximation of limb length. This did restore the left limb being long by abou t 3-4 mm, which was deemed to most likely be the anatomic resting length, given the results of tracti on on and exposure of the hip and muscle tension. Stability had remained excellent, so this was elec jonelle component size. The trials were removed. The hip was flushed of debris again and cleaned, and the size 15 stem was i nserted with application of the -3 mm neck and the 57 mm bipolar head. Once reduced in the acetabulu m, stability was again checked and was excellent, and we proceeded then to closure. Closure was affected by a running stitch of FiberWire in the tensor fascia closing the wound very snu gly and completely, and then a subcutaneous closure of Vicryl, followed by a Monocryl closure in the subcuticular. A sterile silver containing dressing was applied. The patient was then very carefully transported off the hospital bed onto the recovery room bed, and taken to the recovery room in stabl e condition. The blood loss was estimated at 250 mL. There were no intraoperative complications. Sponge and need le counts were correct. IMPLANTS USED: [employer] Taperloc cementless femoral stem, size 15 standard offset, bipolar head 57 mm outer diameter, 28 mm inner diameter, with a -3 mm neck length. TD: 06/24/2018 10:03
--- NOTE | 2018-06-24 14:05 | PROVIDER PROGRESS NOTE ---
Assessment/Plan - Problem List (1) Femoral neck fracture Qualifiers: Encounter type: initial encounter Fracture type: closed Laterality: left Qualified Code(s): S72.002A - Fracture of unspecified part of neck of left femur, initial encounter for closed fracture Assessment/Plan: POD #1 Start PT, pain meds prn. Depending on his weakness, pain, deconditioning, he does agree to go to a SNF for Rehab if needed. (2) Anemia Assessment/Plan: Will check B12, Folate and Iron panel, if needed a stool guiac. Replace if low. (3) Hyponatremia Assessment/Plan: Will monitor, correct with diet, if needed. (4) Poor dentition Assessment/Plan: Patient describes that he "did it to himself by never brushing his teeth". Apparently not from drug abuse (Meth, for example). (5) Living accommodation issues Assessment/Plan: He reports living in [place], which has no toilet or running water. A SW consult will be requested. - Current Meds Current Meds: Current Medications Generic Name Dose Route Start Last Admin Trade Name Freq PRN Reason Stop Dose Admin Hydrocodone Bitart/Acetaminophen 1 tab 06/22/18 21:07 06/24/18 10:47 [place] 5/325 PO 1 tab Q4HR PRN Administration Pain 5 to 7 Aspirin 325 mg 06/23/18 17:00 06/24/18 09:41 Ecotrin PO 325 mg BIDWM AILEEN Administration Cholecalciferol 1,000 unit 06/24/18 09:00 06/24/18 09:41 Vitamin D3 PO 1,000 unit DAILY AILEEN Administration Hydromorphone HCl 0.5 mg 06/22/18 21:07 06/23/18 12:44 Dilaudid Inj Syringe IVP 0.5 mg Q3H PRN Administration Pain 8 to 10 Ketorolac Tromethamine 15 mg 06/24/18 10:36 06/24/18 10:47 Toradol Inj (15mg) IVP 06/29/18 10:35 15 mg Q6HR PRN Administration PAIN Polyethylene Glycol 17 gm 06/23/18 09:00 06/24/18 09:41 Miralax PO 17 gm DAILY AILEEN Administration Sodium Chloride 10 ml 06/22/18 21:07 06/22/18 22:16 Normal Saline Flush 0.9% IVP 10 ml PRN PRN Administration NEEDED PER PROVIDER ORDERS Sodium Chloride 10 ml 06/23/18 01:00 06/24/18 09:41 Normal Saline Flush 0.9% IVP Not Given 0100,0900,1700 AILEEN - Lab Result Fish Bone Diagrams: 06/24/18 05:15 06/24/18 05:15 - Additional Planning My Orders: My Active Orders 06/24/18 08:33 Miscellaenous Nursing Order [RC] ONCE 06/24/18 09:00 Cholecalciferol [Vitamin D3] 1,000 unit PO DAILY Subjective - Subjective Patient Reports: Feeling Better, Resting Comfortably Objective Vital Signs: Vital Signs - 24 hr 06/23/18 06/23/18 06/23/18 16:20 16:26 16:31 Temperature 36.4 C L Heart Rate 75 79 69 Heart Rate [ Activity] Heart Rate [ Brachial] Heart Rate [ Radial] Heart Rate [ Sitting] Heart Rate [ Supine] Respiratory 10 L 11 L 13 Rate Blood Pressure 134/76 H 126/89 H 128/77 Blood Pressure [Activity] Blood Pressure [Left Brachial artery] Blood Pressure [Right Brachial artery] Blood Pressure [Sitting] Blood Pressure [Supine] O2 Saturation 100 100 100 06/23/18 06/23/18 06/23/18 16:36 16:41 16:46 Temperature 36.4 C L Heart Rate 75 75 73 Heart Rate [ Activity] Heart Rate [ Brachial] Heart Rate [ Radial] Heart Rate [ Sitting] Heart Rate [ Supine] Respiratory 10 L 10 L 11 L Rate Blood Pressure 128/78 135/64 H 110/71 Blood Pressure [Activity] Blood Pressure [Left Brachial artery] Blood Pressure [Right Brachial artery] Blood Pressure [Sitting] Blood Pressure [Supine] O2 Saturation 100 100 100 06/23/18 06/23/18 06/23/18 16:54 17:02 17:15 Temperature 36.4 C L 36.4 C L Heart Rate 62 58 L 58 L Heart Rate [ Activity] Heart Rate [ Brachial] Heart Rate [ Radial] Heart Rate [ Sitting] Heart Rate [ Supine] Respiratory 10 L 10 L 12 Rate Blood Pressure 139/79 H 147/91 H 168/88 H Blood Pressure [Activity] Blood Pressure [Left Brachial artery] Blood Pressure [Right Brachial artery] Blood Pressure [Sitting] Blood Pressure [Supine] O2 Saturation 98 94 98 06/23/18 06/23/18 06/23/18 17:25 17:59 18:44 Temperature 36.2 C L 36 C L Heart Rate Heart Rate [ Activity] Heart Rate [ Brachial] Heart Rate [ 55 L 47 L 63 Radial] Heart Rate [ Sitting] Heart Rate [ Supine] Respiratory 16 16 16 Rate Blood Pressure Blood Pressure [Activity] Blood Pressure [Left Brachial artery] Blood Pressure 161/79 H 178/73 H 163/86 H [Right Brachial artery] Blood Pressure [Sitting] Blood Pressure [Supine] O2 Saturation 96 99 100 06/23/18 06/23/18 06/23/18 19:11 19:58 22:05 Temperature 36.2 C L 36.1 C L 36.3 C L Heart Rate Heart Rate [ Activity] Heart Rate [ Brachial] Heart Rate [ 51 L 78 74 Radial] Heart Rate [ Sitting] Heart Rate [ Supine] Respiratory 14 20 16 Rate Blood Pressure Blood Pressure [Activity] Blood Pressure [Left Brachial artery] Blood Pressure 133/72 H 126/70 129/64 [Right Brachial artery] Blood Pressure [Sitting] Blood Pressure [Supine] O2 Saturation 98 100 100 06/24/18 06/24/18 06/24/18 00:01 05:51 08:02 Temperature 36.3 C L 36.5 C 36.6 C Heart Rate Heart Rate [ Activity] Heart Rate [ 70 82 88 Brachial] Heart Rate [ Radial] Heart Rate [ Sitting] Heart Rate [ Supine] Respiratory 18 17 18 Rate Blood Pressure Blood Pressure [Activity] Blood Pressure 106/61 [Left Brachial artery] Blood Pressure 117/71 109/70 [Right Brachial artery] Blood Pressure [Sitting] Blood Pressure [Supine] O2 Saturation 100 98 99 06/24/18 06/24/18 11:25 11:29 Temperature 36.8 C Heart Rate Heart Rate [ 84 Activity] Heart Rate [ 94 Brachial] Heart Rate [ Radial] Heart Rate [ 95 Sitting] Heart Rate [ 86 Supine] Respiratory 18 Rate Blood Pressure Blood Pressure 91/57 L [Activity] Blood Pressure 106/66 [Left Brachial artery] Blood Pressure [Right Brachial artery] Blood Pressure 106/65 [Sitting] Blood Pressure 106/66 [Supine] O2 Saturation 97 Oxygen O2 Source Room air I&O (Last 24 Hrs): Intake and Output Totals x24h 04/23/19 04/24/19 04/25/19 23:59 23:59 23:59 Intake Total 260 2296.667 3108.333 Output Total 2225 2225 Balance 260 71.667 883.333 General: Alert, Oriented x3 HEENT: Mucous membr. moist/pink, Other (Edentulous except one bottom tooth) Neck: Supple Neuro: Other (Has occaisional stutter when speaks) Cardiovascular: Regular rate, No murmurs Respiratory: No respiratory distress Abdomen: Soft Extremities: No edema, Other (Onychomycosis) - Results Results: Laboratory Results WBC 9.1 x10^3/uL (4.8-10.8) 06/24/18 05:15 RBC 3.62 10^6/uL (4.70-6.10) L 06/24/18 05:15 Hgb 10.7 g/dL (14.0-18.0) L 06/24/18 05:15 Hct 31.3 % (42.0-52.0) L 06/24/18 05:15 MCV 86.5 fL (80.0-94.0) 06/24/18 05:15 MCH 29.7 pg (27.0-31.0) 06/24/18 05:15 MCHC 34.3 g/dL (32.0-36.0) 06/24/18 05:15 RDW 16.1 % (12.0-15.0) H 06/24/18 05:15 Plt Count 145 10^3/uL (130-450) 06/24/18 05:15 MPV 8.7 fL (7.4-11.4) 06/24/18 05:15 Neut # (Auto) 7.8 10^3/uL (1.5-6.6) H 06/24/18 05:15 Lymph # (Auto) 0.3 10^3/uL (1.5-3.5) L 06/24/18 05:15 [place] # (Auto) 1.0 10^3/uL (0.0-1.0) 06/24/18 05:15 Eos # (Auto) 0.0 10^3/uL (0.0-0.7) 06/24/18 05:15 Baso # (Auto) 0.0 10^3/uL (0.0-0.1) 06/24/18 05:15 Absolute Nucleated RBC 0.00 x10^3/uL 06/24/18 05:15 Nucleated RBC % 0.0 /100WBC 06/24/18 05:15 PT 12.1 secs (9.9-12.6) 06/22/18 18:46 INR 1.1 (0.8-1.2) 06/22/18 18:46 Sodium 132 mmol/L (135-145) L 06/24/18 05:15 Potassium 4.3 mmol/L (3.5-5.0) 06/24/18 05:15 Chloride 102 mmol/L (101-111) 06/24/18 05:15 Carbon Dioxide 23 mmol/L (21-32) 06/24/18 05:15 Anion Gap 7.0 (6-13) 06/24/18 05:15 BUN 13 mg/dL (6-20) 06/24/18 05:15 Creatinine 0.8 mg/dL (0.6-1.2) 06/24/18 05:15 Estimated GFR (MDRD) 96 (>89) 06/24/18 05:15 Glucose 115 mg/dL (70-100) H 06/24/18 05:15 Calcium 7.7 mg/dL (8.5-10.3) L 06/24/18 05:15 Total Bilirubin 0.5 mg/dL (0.2-1.0) 06/22/18 18:46 AST 39 IU/L (10-42) 06/22/18 18:46 ALT 31 IU/L (10-60) 06/22/18 18:46 Alkaline Phosphatase 73 IU/L (42-121) 06/22/18 18:46 Total Protein 6.9 g/dL (6.7-8.2) 06/22/18 18:46 Albumin 3.4 g/dL (3.2-5.5) 06/22/18 18:46 Globulin 3.5 g/dL (2.1-4.2) 06/22/18 18:46 Albumin/Globulin Ratio 1.0 (1.0-2.2) 06/22/18 18:46 Lipase 33 U/L (22-51) 06/22/18 18:46
[2018-06-24] MEDS: HYDROmorphone 0.5 MG/0.5 ML SYRINGE IVP PRN (15:03)
[2018-06-24] MEDS: SODIUM CHLORIDE FLUSH 0.9% 10 ML SYRINGE IVP PRN (17:30)
[2018-06-25] MEDS: SODIUM CHLORIDE FLUSH 0.9% 10 ML SYRINGE IVP SCH ×3 (00:24→17:27)
[2018-06-25] MEDS: KETOROLAC 15 MG/ML VIAL IVP PRN (03:07)
[2018-06-25] MEDS: SODIUM CHLORIDE FLUSH 0.9% 10 ML SYRINGE IVP PRN (03:08)
[2018-06-25] MEDS: HYDROcod/ACETAM 5/325 MG TABLET PO PRN (03:13)
[2018-06-25 05:02] LABS: BASOPHILS % (AUTO) 0.2 %; EOSINOPHILS # (AUTO) 0.2 10^3/uL (0.0-0.7); EOSINOPHILS % (AUTO) 2.5 %; HGB - HEMOGLOBIN 10.3 g/dL (14.0-18.0); LYMPHOCYTES # (AUTO) 0.4 10^3/uL (1.5-3.5); LYMPHOCYTES % (AUTO) 5.3 %; MEAN CORPUSCULAR HEMOGLOBIN 29.2 pg (27.0-31.0); MEAN CORPUSCULAR HGB CONC 33.6 g/dL (32.0-36.0); MEAN CORPUSCULAR VOLUME 86.7 fL (80.0-94.0); MEAN PLATELET VOLUME 8.5 fL (7.4-11.4); MONOCYTES # (AUTO) 0.9 10^3/uL (0.0-1.0); MONOCYTES % (AUTO) 11.4 %; NEUTROPHILS # (AUTO) 6.5 10^3/uL (1.5-6.6); NEUTROPHILS % (AUTO) 80.6 %; PLT - PLATELET COUNT 148 10^3/uL (130-450); RED BLOOD COUNT 3.55 10^6/uL (4.70-6.10); RED CELL DISTRIBUTION WIDTH 16.6 % (12.0-15.0); WHITE BLOOD COUNT 8.1 x10^3/uL (4.8-10.8)
[2018-06-25 05:08] LABS: CALCIUM 7.8 mg/dL (8.5-10.3); CREATININE 0.8 mg/dL (0.6-1.2)
[2018-06-25] MEDS: CHOLECALCIFEROL 1,000 UNIT TABLET PO SCH (08:27)
[2018-06-25] MEDS: ASPIRIN EC 325 MG TABLET PO SCH ×2 (08:27→17:27)
[2018-06-25] MEDS: POLYETHYLENE GLYCOL 3350 17 GM PACKET PO SCH (08:30)
--- NOTE | 2018-06-25 09:09 | PROVIDER PROGRESS NOTE ---
Subjective - General Admit Date: 06/22/18 Procedure Date: 06/23/18 Post Op Days: 2 Procedure Performed: left hip hemiarthroplasty - Review of Systems Wound/Incisions: positive: Dressing dry and intact Pulmonary: positive: Cough (chronic and dry) Musculoskeletal: positive: Joint pain Objective - Patient Data Reviewed Vital Signs: Yes Vital Signs: Vital Signs x48h Temp Pulse Resp BP Pulse Ox 06/25/18 07:37 36.7 C 80 16 116/69 94 06/25/18 05:02 36.7 C 92 17 111/68 94 Intake & Output: Intake and Output Totals x24h 06/23/18 06/24/18 06/25/18 23:59 23:59 23:59 Intake Total 2296.667 4408.333 440 Output Total 2225 2725 900 Balance 71.667 1683.333 -460 - Lab Results Lab Results: 06/25/18 04:35 06/25/18 04:35 Other Lab Results: Lab Results x24hrs 06/25/18 06/25/18 Range/Units 04:35 04:35 WBC 8.1 (4.8-10.8) x10^3/uL RBC 3.55 L (4.70-6.10) 10^6/uL Hgb 10.3 L (14.0-18.0) g/dL Hct 30.8 L (42.0-52.0) % MCV 86.7 (80.0-94.0) fL MCH 29.2 (27.0-31.0) pg MCHC 33.6 (32.0-36.0) g/dL RDW 16.6 H (12.0-15.0) % Plt Count 148 (130-450) 10^3/uL MPV 8.5 (7.4-11.4) fL Neut # (Auto) 6.5 (1.5-6.6) 10^3/uL Lymph # (Auto) 0.4 L (1.5-3.5) 10^3/uL [place] # (Auto) 0.9 (0.0-1.0) 10^3/uL Eos # (Auto) 0.2 (0.0-0.7) 10^3/uL Baso # (Auto) 0.0 (0.0-0.1) 10^3/uL Absolute Nucleated RBC 0.00 x10^3/uL Nucleated RBC % 0.0 /100WBC Sodium 137 (135-145) mmol/L Potassium 4.3 (3.5-5.0) mmol/L Chloride 108 (101-111) mmol/L Carbon Dioxide 23 (21-32) mmol/L Anion Gap 6.0 (6-13) BUN 17 (6-20) mg/dL Creatinine 0.8 (0.6-1.2) mg/dL Estimated GFR (MDRD) 96 (>89) Glucose 99 (70-100) mg/dL Calcium 7.8 L (8.5-10.3) mg/dL - Current Medications Current Medications: Current Medications Generic Name Dose Route Start Last Admin Trade Name Freq PRN Reason Stop Dose Admin Hydrocodone Bitart/Acetaminophen 1 tab 06/22/18 21:07 06/25/18 03:13 [place] 5/325 PO 1 tab Q4HR PRN Administration Pain 5 to 7 Aspirin 325 mg 06/23/18 17:00 06/25/18 08:27 Ecotrin PO 325 mg BIDWM AILEEN Administration Cholecalciferol 1,000 unit 06/24/18 09:00 06/25/18 08:27 Vitamin D3 PO 1,000 unit DAILY AILEEN Administration Hydromorphone HCl 0.5 mg 06/22/18 21:07 06/24/18 15:03 Dilaudid Inj Syringe IVP 0.5 mg Q3H PRN Administration Pain 8 to 10 Ketorolac Tromethamine 15 mg 06/24/18 10:36 06/25/18 03:07 Toradol Inj (15mg) IVP 06/29/18 10:35 15 mg Q6HR PRN Administration PAIN Polyethylene Glycol 17 gm 06/23/18 09:00 06/25/18 08:30 Miralax PO 17 gm DAILY AILEEN Administration Sodium Chloride 10 ml 06/22/18 21:07 06/25/18 03:08 Normal Saline Flush 0.9% IVP 10 ml PRN PRN Administration NEEDED PER PROVIDER ORDERS Sodium Chloride 10 ml 06/23/18 01:00 06/25/18 08:31 Normal Saline Flush 0.9% IVP 10 ml 0100,0900,1700 AILEEN Administration - Physical Exam Wound/Incisions: positive: Dressing dry and intact General Appearance: positive: No acute distress Extremities: positive: Joint swelling Neurologic/Psychiatric: positive: Oriented x3, CN's nml (2-12), Motor nml, Sensation nml, Mood/affect nml Impression/Plan - Problem List Problem List: POD #2 The patient reports the pain as only being an ache in the left hip at this point. He is beginning to mobilize out of bed, but so far somewhat limited and not yet chair sitting or independent. Pt plans to d/c to home. His resources are limited and support limited. I rec. that he continue with more aggressive PT today. Aim for d/c to home tomorrow. Ortho f/u next .
[2018-06-25] MEDS ORDERED: ACETAMINOPHEN 325 MG TABLET PO PRN (10:28)
--- NOTE | 2018-06-25 14:10 | PROVIDER PROGRESS NOTE ---
Assessment/Plan - Problem List (1) Femoral neck fracture Qualifiers: Encounter type: initial encounter Fracture type: closed Laterality: left Qualified Code(s): S72.002A - Fracture of unspecified part of neck of left femur, initial encounter for closed fracture Assessment/Plan: Increased PT planned for today, including more OOB to chair. An accepting SNF has been found, for PT rehab before return home, if he is willing, as he was yesterday. (2) Anemia Assessment/Plan: Lab w/u pending. (3) Poor dentition Assessment/Plan: Stable, he does not wish his diet to be changed. (4) Living accommodation issues Assessment/Plan: He has no toilet or running water in the trailer where he lives, [place]. He also told BROOKE that he is worried about losing his job due to the hip and recent orthopedic surgery. BROOKE will be addressing this today. (5) Hyponatremia Assessment/Plan: Resolved. - Current Meds Current Meds: Current Medications Generic Name Dose Route Start Last Admin Trade Name Freq PRN Reason Stop Dose Admin Hydrocodone Bitart/Acetaminophen 1 tab 06/22/18 21:07 06/25/18 03:13 [place] 5/325 PO 1 tab Q4HR PRN Administration Pain 5 to 7 Aspirin 325 mg 06/23/18 17:00 06/25/18 08:27 Ecotrin PO 325 mg BIDWM AILEEN Administration Cholecalciferol 1,000 unit 06/24/18 09:00 06/25/18 08:27 Vitamin D3 PO 1,000 unit DAILY AILEEN Administration Polyethylene Glycol 17 gm 06/23/18 09:00 06/25/18 08:30 Miralax PO 17 gm DAILY AILEEN Administration Sodium Chloride 10 ml 06/22/18 21:07 06/25/18 03:08 Normal Saline Flush 0.9% IVP 10 ml PRN PRN Administration NEEDED PER PROVIDER ORDERS Sodium Chloride 10 ml 06/23/18 01:00 06/25/18 08:31 Normal Saline Flush 0.9% IVP 10 ml 0100,0900,1700 AILEEN Administration - Lab Result Fish Bone Diagrams: 06/25/18 04:35 06/25/18 04:35 Subjective - Subjective Patient Reports: Pain (Less hip pain then yesterday.) Nursing Reports: Other (First time sitting OOB in chair today.) Objective Vital Signs: Vital Signs - 24 hr 06/24/18 06/24/18 06/25/18 17:00 20:07 00:25 Temperature 36.3 C L 36.6 C 36.9 C Heart Rate [ Activity] Heart Rate [ 79 82 84 Brachial] Heart Rate [ Sitting] Heart Rate [ Supine] Respiratory 17 18 16 Rate Blood Pressure [Activity] Blood Pressure 118/73 118/67 94/55 L [Right Brachial artery] Blood Pressure [Sitting] Blood Pressure [Supine] O2 Saturation 97 97 92 06/25/18 06/25/18 06/25/18 05:02 07:37 10:27 Temperature 36.7 C 36.7 C Heart Rate [ 84 Activity] Heart Rate [ 92 80 Brachial] Heart Rate [ 95 Sitting] Heart Rate [ 86 Supine] Respiratory 17 16 Rate Blood Pressure 91/57 L [Activity] Blood Pressure 111/68 116/69 [Right Brachial artery] Blood Pressure 106/65 [Sitting] Blood Pressure 106/66 [Supine] O2 Saturation 94 94 Oxygen O2 Source Room air I&O (Last 24 Hrs): Intake and Output Totals x24h 06/23/18 06/24/18 06/25/18 23:59 23:59 23:59 Intake Total 2296.667 4408.333 680 Output Total 2225 2725 1550 Balance 71.667 1683.333 -870 General: Alert, Oriented x3 HEENT: Mucous membr. moist/pink, Other (Edentulous, cleaned and bathed and s howered.) Neck: Supple Neuro: Non Focal Cardiovascular: Regular rate, No murmurs Respiratory: No respiratory distress Abdomen: Soft Extremities: No edema, Other (Onychomycosis) - Results Results: Laboratory Results WBC 8.1 x10^3/uL (4.8-10.8) 06/25/18 04:35 RBC 3.55 10^6/uL (4.70-6.10) L 06/25/18 04:35 Hgb 10.3 g/dL (14.0-18.0) L 06/25/18 04:35 Hct 30.8 % (42.0-52.0) L 06/25/18 04:35 MCV 86.7 fL (80.0-94.0) 06/25/18 04:35 MCH 29.2 pg (27.0-31.0) 06/25/18 04:35 MCHC 33.6 g/dL (32.0-36.0) 06/25/18 04:35 RDW 16.6 % (12.0-15.0) H 06/25/18 04:35 Plt Count 148 10^3/uL (130-450) 06/25/18 04:35 MPV 8.5 fL (7.4-11.4) 06/25/18 04:35 Neut # (Auto) 6.5 10^3/uL (1.5-6.6) 06/25/18 04:35 Lymph # (Auto) 0.4 10^3/uL (1.5-3.5) L 06/25/18 04:35 [place] # (Auto) 0.9 10^3/uL (0.0-1.0) 06/25/18 04:35 Eos # (Auto) 0.2 10^3/uL (0.0-0.7) 06/25/18 04:35 Baso # (Auto) 0.0 10^3/uL (0.0-0.1) 06/25/18 04:35 Absolute Nucleated RBC 0.00 x10^3/uL 06/25/18 04:35 Nucleated RBC % 0.0 /100WBC 06/25/18 04:35 PT 12.1 secs (9.9-12.6) 06/22/18 18:46 INR 1.1 (0.8-1.2) 06/22/18 18:46 Sodium 137 mmol/L (135-145) 06/25/18 04:35 Potassium 4.3 mmol/L (3.5-5.0) 06/25/18 04:35 Chloride 108 mmol/L (101-111) 06/25/18 04:35 Carbon Dioxide 23 mmol/L (21-32) 06/25/18 04:35 Anion Gap 6.0 (6-13) 06/25/18 04:35 BUN 17 mg/dL (6-20) 06/25/18 04:35 Creatinine 0.8 mg/dL (0.6-1.2) 06/25/18 04:35 Estimated GFR (MDRD) 96 (>89) 06/25/18 04:35 Glucose 99 mg/dL (70-100) 06/25/18 04:35 Calcium 7.8 mg/dL (8.5-10.3) L 06/25/18 04:35 Total Bilirubin 0.5 mg/dL (0.2-1.0) 06/22/18 18:46 AST 39 IU/L (10-42) 06/22/18 18:46 ALT 31 IU/L (10-60) 06/22/18 18:46 Alkaline Phosphatase 73 IU/L (42-121) 06/22/18 18:46 Total Protein 6.9 g/dL (6.7-8.2) 06/22/18 18:46 Albumin 3.4 g/dL (3.2-5.5) 06/22/18 18:46 Globulin 3.5 g/dL (2.1-4.2) 06/22/18 18:46 Albumin/Globulin Ratio 1.0 (1.0-2.2) 06/22/18 18:46 Lipase 33 U/L (22-51) 06/22/18 18:46
[2018-06-25] MEDS ORDERED: BISACODYL 10 MG SUPP PR ONE (18:26)
[2018-06-25 23:53] VITALS: BP 119/20
[2018-06-26] MEDS: SODIUM CHLORIDE FLUSH 0.9% 10 ML SYRINGE IVP SCH ×2 (02:23→08:24)
[2018-06-26] MEDS: SODIUM CHLORIDE FLUSH 0.9% 10 ML SYRINGE IVP PRN (02:23)
[2018-06-26] MEDS: HYDROcod/ACETAM 5/325 MG TABLET PO PRN (02:34)
[2018-06-26 06:38] LABS: BASOPHILS % (AUTO) 0.2 %; EOSINOPHILS # (AUTO) 0.3 10^3/uL (0.0-0.7); EOSINOPHILS % (AUTO) 3.4 %; LYMPHOCYTES # (AUTO) 0.7 10^3/uL (1.5-3.5); LYMPHOCYTES % (AUTO) 9.1 %; MEAN CORPUSCULAR HEMOGLOBIN 28.9 pg (27.0-31.0); MEAN CORPUSCULAR HGB CONC 33.4 g/dL (32.0-36.0); MEAN CORPUSCULAR VOLUME 86.5 fL (80.0-94.0); MEAN PLATELET VOLUME 8.3 fL (7.4-11.4); MONOCYTES # (AUTO) 1.1 10^3/uL (0.0-1.0); MONOCYTES % (AUTO) 13.8 %; NEUTROPHILS # (AUTO) 5.8 10^3/uL (1.5-6.6); NEUTROPHILS % (AUTO) 73.5 %; PLT - PLATELET COUNT 162 10^3/uL (130-450); RED BLOOD COUNT 3.48 10^6/uL (4.70-6.10); RED CELL DISTRIBUTION WIDTH 16.2 % (12.0-15.0); WHITE BLOOD COUNT 7.8 x10^3/uL (4.8-10.8)
[2018-06-26 07:19] LABS: % IRON SATURATION 3 % (20-50); IRON 7 ug/dL (45-182); TOTAL IRON BINDING CAPACITY 217 ug/dL (250-450); TRANSFERRIN 155 mg/dL (180-329)
[2018-06-26 07:46] LABS: FOLATE 21.47 ng/mL (5.90 - >24.8)
--- NOTE | 2018-06-26 08:10 | Discharge Plan ---
"Discharge Plan for SNF / [facility]AN[facility] - Discharge Plan And Transition Orders Disposition: 03 SNF DC/Xfer Condition: Stable Allergies and Adverse Reactions: Allergies Allergy/AdvReac Type Severity Reaction Status Date / Time codeine AdvReac Nausea Verified 06/22/18 18:23 - SNF / [facility] Transition Orders Admit to (Facility): [facility] Discharge Diagnosis: (1) Femoral neck fracture (2) Anemia, Iron deficiency (3) Poor dentition (4) Living accommodation issues (5) Hyponatremia, resolved (6) Constipation Medicare Certification Statement: I certify that [facility] care is medically necessary on a continuing basis for any of the conditions for which she/he is receiving care during hospitalization. Notify PCP of admission and forward orders to primary provider for signature. Weight on admission and: Weekly Call PCP immediately if weight increases by: 5 kg Other Notification Orders: Call PCP immediately if patient develops dyspnea, chest pain/tightness or edema. House Bowel Program: Yes Additional Bowel Program Orders: If no BM after 2 days, nurse may give M.O.M. 30ml PO PRN and/or ducolax Supp 1 NC and/or ANGUS 250mg P.O., and/or senna 1-2 tabs PO. On day 3 nurse may give repeat above order until residents constipation is resolved. Annual Influenza Vaccine (between Oct 31 and May 30): Yes Two-step PPD per [facility] [id number] or approved exception documents: Yes Treatments & Other Orders: Daily PT and OT Oxygen Orders: None Medication Orders: PLEASE REFER TO THE DISCHARGE MEDICATION LIST. Insulin Orders?: No - Medications New Prescriptions: Acetaminophen [Tylenol] 650 mg PO Q4HR PRN #30 tablet PRN Reason: Pain Or Fever > 38c (100.4f) HYDROcod/ACETAM 5/325 [[place] 5/325] 1 tab PO Q4HR PRN #14 tablet PRN Reason: Pain 5 to 7 Aspirin EC [Ecotrin] 325 mg PO BIDWM #30 tablet Ferrous Gluconate [Iron] 240 mg PO DAILY #30 tablet Polyethylene Glycol 3350 [Miralax] 17 gm PO DAILY #30 packet - Diet Type: No added salt Texture: Regular Liquids: Thin May have monthly special meal: Yes - Therapies | Activity Therapy: Evaluation | Treat if indicated: PT, OT Rehabilitation Potential: Maximize functional status Activity: Activity as Tolerated Weight Bearing: Full Weight Assistance Devices: Walker Additional Instructions: You were admitted after a hip fracture. We also found that you have Iron deficiency anemia. You are being discharged for daily Physical Therapy and Occupational Therapy. Pain medications, Iron supplements, aspirin and constipation meds have been ordered for you. See the Dr Ayers at the [facility] after you are discharged from the [facility] facility."
[2018-06-26] MEDS: ASPIRIN EC 325 MG TABLET PO SCH (08:22)
[2018-06-26] MEDS: POLYETHYLENE GLYCOL 3350 17 GM PACKET PO SCH (08:22)
[2018-06-26] MEDS: CHOLECALCIFEROL 1,000 UNIT TABLET PO SCH (08:22)
[2018-06-26] MEDS ORDERED: FERROUS GLUCONATE 324 MG TABLET PO SCH (08:30)
[2018-06-26] MEDS ORDERED: SENNA 8.6 MG TABLET PO SCH (09:00)
[2018-06-26] MEDS ORDERED: DOCUSATE SODIUM 250 MG CAPSULE PO SCH (09:00)
--- NOTE | 2018-06-26 19:53 | DISCHARGE SUMMARY ---
Physician: Payton Gabriel MD DATE OF ADMISSION: 06/22/2018 DATE OF DISCHARGE: 06/26/2018 HISTORY OF PRESENT ILLNESS: This is a 68-year-old white male who has a history of skin cancer with resection in the past, but otherwise a negative medical history. He takes no medications. 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 He has had past head trauma from mechanical injury recently to his right eyebrow. The patient presented now after a mechanical fall, which occurred on the farm, and he fell on his left side, was brought to the emergency room, and diagnosed with a hip fracture. He was admitted for management. HOSPITAL COURSE AND DISCHARGE DIAGNOSES 1. Left femoral neck fracture. The patient was felt to have low cardiac risk, was stable, and taken to surgery, which was successful, and he had a left hemiarthroplasty. The following day, he was out of bed to chair, and then had increasing PT. He was discharged for PT and OT rehabilitation to [facility], in stable condition on 06/26/2018. 2. Anemia, iron deficiency. The patient's admission CBC showed a hemoglobin of 12.1 with MCV of 86, this dropped every day, and the lowest was 10.0. He underwent blood tests showing adequate B12 and folate stores, but low iron stores, and was started on daily iron tablets here, and to be continued after discharge. 3. Poor dentition. The patient has 1 tooth. He admits that he had poor dental hygiene (failed to brush his teeth) and his teeth "fell out". He is able, however, to eat a regular diet without dentures. 4. Living accommodation issues. The patient describes that he lives in a trailer on the farm, and the trailer has no running water or toilet. The patient did come in very disheveled, he has nail fungus and had crusted dirt. He had bathing and hygiene done here. Social Work started to assist him regarding his living situation. 5. Hyponatremia. His admission sodium was normal, then dropped to 132 on the second day, but normalized with gentle saline hydration for 3 days. 6. Constipation. The patient did not have a bowel movement for the first 3 days, he was on a bowel protocol while here and discharged with daily MiraLax. CONDITION AT DISCHARGE: Stable. ALLERGIES: CODEINE; however, he is able to take oxycodone. MEDICATIONS AT DISCHARGE 1. Tylenol 650 mg q.4 hours p.r.n. pain. 2. [place] 5/325 mg q.4 hours p.r.n. severe pain. 3. Adult-dose aspirin b.i.d. 4. Ferrous gluconate 240 mg daily. 5. MiraLax 17 mg daily. PHYSICAL EXAMINATION VITAL SIGNS: Blood pressure 119/20, heart rate 87-90, in sinus rhythm, afebrile, room air saturation 93%. HEENT: Reveals he is edentulous, has only 1 tooth in the lower right front. Oral mucosa is moist. NECK: Without JVD or carotid bruits. CHEST: Clear. HEART: Heart sounds are normal. No murmurs. ABDOMEN: Soft. No organomegaly. Normal bowel sounds. EXTREMITIES: No clubbing, cyanosis, or edema, but multiple scrapes and poor nail health. NEUROLOGIC: Grossly intact. FOLLOWUP: He was advised to get a PCP after his discharge from the retirement facility, and he is advised to have orthopedic followup right after being discharged from the retirement facility. CODE STATUS: FULL CODE. Time required to complete this entire discharge, chart review, SNF orders, dictation: 60 minutes. TD: 06/26/2018 18:39 MARTA
== END 2018-06-26 10:07 | DRG 470 ==
LOC: EDUNIT# → ED 18:15 → MS2 21:07
PROVIDERS: ADMIT Internal Medicine; ATTEND Internal Medicine
PROC: 0SRS0JA Replacement of Left Hip Joint, Femoral Surface with Synthetic Substitute, Uncemented, Open Approach (ICD-10-PCS; principal; 2018-06-23 14:00)
DX: S72.012A Unspecified intracapsular fracture of left femur, initial encounter for closed fracture (principal); E87.1 Hypo-osmolality and hyponatremia; E44.1 Mild protein-calorie malnutrition; W18.30XA Fall on same level, unspecified, initial encounter; Z85.828 Personal history of other malignant neoplasm of skin; D50.9 Iron deficiency anemia, unspecified; K08.109 Complete loss of teeth, unspecified cause, unspecified class; B35.1 Tinea unguium; K59.00 Constipation, unspecified; S72.002A Fracture of unspecified part of neck of left femur, initial encounter for closed fracture; Z96.641 Presence of right artificial hip joint; Z68.24 Body mass index [BMI] 24.0-24.9, adult; S09.90XA Unspecified injury of head, initial encounter; Z88.6 Allergy status to analgesic agent
CPT/HCPCS: 36415; 70450; 71045; 72125; 73502; 80048; 80053; 82607; 82746; 83540; 83690; 84466; 85025; 85610; 93005; 96374; 97116; 97162; 97165; 97530; 99284; A9270; J0131; J1170; J7120

== ENCOUNTER 2025-02-24 17:24 | Inpatient (IN) ==
--- NOTE | 2025-02-24 17:28 | ED Physician Documentation ---
History of Present Illness Stated complaint Stated Complaint: SOA Chief complaint Chief Complaint: Resp History obtained from History obtained from: Patient and Family Additonal information Additional information: This is an elderly gentleman with history of hip replacements. [place] but is otherwise on domiciled. Does not clearly have any medical history other than the hip replacement. Paramedics found him short of breath and cramping and intubated him. They did confirm prior to intubation that he was full code, and they also elicited the history that there was a quest ion about the status of his hip replacement with potentially pin protruding and he was started by the [facility] on veterinary amoxicillin 2 days ago. Meds/Allgy Home Medications Ambulatory Orders Medication Instructions Recorded Confirmed acetaminophen 325 mg tablet 650 mg (2 x 325 mg) PO Q4H R PRN 06/26/18 Pain Or Fever > 38c (100.4f) ##30 aspirin 325 mg tablet,delayed 325 mg PO BIDWM ##30 release ferrous gluconate 240 mg (27 mg 240 mg PO DAILY #30 ta bs 06/26/18 iron) tablet hydrocodone 5 mg-acetaminophen 325 1 tab PO Q4HR PRN P ain 5 to 7 ##14 06/26/18 mg tablet polyethylene glycol 3350 17 gram 17 g PO DAILY ##30 oral powder packet oxycodone 5 mg tablet 5 mg PO TID PRN pain #10 tab s 01/30/25 Allergies Allergies Allergy/AdvReac Type Severity Reaction Status Date / Time codeine AdvReac Nausea Verified 02/24/25 17:38 PFSH Active Problems All Active Problems (Updated 02/24/25 @ 20:20 by MIKE [place]) Hypothermia (Acute) Septic shock (Acute) Pneumonia (Acute) Respiratory failure (Acute) Congestive heart failure (Acute) Medical History Medical History (Updated 02/24/25 @ 20:20 by MIKE [place]) Right hip pain Femur fracture, right Social History Social History (Updated 02/24/25 @ 17:40 by Yin Lynn RN) Living arrangement: At home Marital Status: Single Living Condition: Alone Do you feel safe in your home environment?: Yes History of physical, verbal, emotional, or financial abuse?: No POLST Patient has POLST: Yes Exam Exam Vital Signs: Vital Signs x48h Temp Pulse Resp BP Pulse Ox 02/24/25 19:55 30.3 C L 48 L 20 91/49 L 95 02/24/25 19:45 30.5 C L 49 L 20 103/59 L 96 02/24/25 19:26 51 L 02/24/25 19:25 30.5 C L 48 L 20 90/53 L 96 02/24/25 19:15 30.4 C L 46 L 20 86/50 L 97 02/24/25 19:15 31.0 C L 46 L 20 86/50 L 98 02/24/25 18:45 30.8 C L 43 L 20 87/49 L 98 02/24/25 18:36 30.9 C L 43 L 20 84/50 L 98 02/24/25 18:30 31.0 C L 43 L 20 84/45 L 98 02/24/25 18:23 43 L 20 84/41 L 98 02/24/25 18:10 44 L 20 79/43 L 98 02/24/25 18:05 45 L 20 77/43 L 98 02/24/25 18:04 64 20 76/43 L 98 02/24/25 17:59 45 L 20 69/39 L 98 02/24/25 17:54 45 L 20 60/36 L 02/24/25 17:44 43 L 20 55/33 L 98 02/24/25 17:40 47 L 20 62/36 L 92 02/24/25 17:37 48 L 20 63/34 L 92 02/24/25 17:35 48 L 02/24/25 17:34 48 L 20 74/38 L 97 02/24/25 17:27 55 L 16 95/47 L Constitutional He is intubated and sedated. GCS 3. Initially his endotracheal tube is basically hubbed at the lips and he has no breath sounds on the left. It was pulled back about 5 or 6 cm on initial evaluation and then developed breath sounds on the left. Eyes Small nonreactive Pupils Respiratory Rhonchorous throughout, intubated Cardiovascular normal heart rate noted and regular rhythm noted Gastrointestinal abdomen soft to palpation and nontender to palpation Extremities Well-healed hip surgical scar on the left without exposed hardware, 4+ pitting pedal edema, poorly kempt feet. Results Vitals Vitals: Vital Signs - 24 hr 02/24/25 17:27 02/24/25 17:34 02/24/25 17:35 Temperature Temperature Source Pulse Rate 55 L 48 L 48 L Respiratory Rate 16 20 Blood Pressure 95/47 L 74/38 L O2 Saturation 97 Oxygen Delivery Method O2 Source Mechanical ventilator Mechanical ventilator Fraction of Inspired Oxygen (FIO2) 60 FiO2 (%) Pain Intensity 0 0 02/24/25 17:37 02/24/25 17:40 02/24/25 17:44 Temperature Temperature Source Pulse Rate 48 L 47 L 43 L Respiratory Rate 20 20 20 Blood Pressure 63/34 L 62/36 L 55/33 L O2 Saturation 92 92 98 Oxygen Delivery Method O2 Source Mechanical ventilator Ambu bag Mechanical ventilator Fraction of Inspired Oxygen (FIO2) FiO2 (%) Pain Intensity 02/24/25 17:54 02/24/25 17:59 02/24/25 18:01 Temperature Temperature Source Pulse Rate 45 L 45 L Respiratory Rate 20 20 Blood Pressure 60/36 L 69/39 L O2 Saturation 98 Oxygen Delivery Method Mechanical Ventilator O2 Source Mechanical ventilator Mechanical ventilator Fraction of Inspired Oxygen (FIO2) FiO2 (%) Pain Intensity 0 0 02/24/25 18:04 02/24/25 18:05 02/24/25 18:10 Temperature Temperature Source Pulse Rate 64 45 L 44 L Respiratory Rate 20 20 20 Blood Pressure 76/43 L 77/43 L 79/43 L O2 Saturation 98 98 98 Oxygen Delivery Method O2 Source Mechanical ventilator Mechanical ventilator Mechanical ventilator Fraction of Inspired Oxygen (FIO2) FiO2 (%) Pain Intensity 0 0 0 02/24/25 18:23 02/24/25 18:30 02/24/25 18:36 Temperature 31.0 C L 30.9 C L Temperature Source Core Core Pulse Rate 43 L 43 L 43 L Respiratory Rate 20 20 20 Blood Pressure 84/41 L 84/45 L 84/50 L O2 Saturation 98 98 98 Oxygen Delivery Method O2 Source Mechanical ventilator Mechanical ventilator Mechanical ventilator Fraction of Inspired Oxygen (FIO2) FiO2 (%) Pain Intensity 0 0 0 02/24/25 18:45 02/24/25 19:15 02/24/25 19:15 Temperature 30.8 C L 31.0 C L 30.4 C L Temperature Source Core Core Core Pulse Rate 43 L 46 L 46 L Respiratory Rate 20 20 20 Blood Pressure 87/49 L 86/50 L 86/50 L O2 Saturation 98 98 97 Oxygen Delivery Method O2 Source Room air Mechanical ventilator Mechanical ventilator Fraction of Inspired Oxygen (FIO2) FiO2 (%) 50 Pain Intensity 0 0 02/24/25 19:25 02/24/25 19:26 02/24/25 19:45 Temperature 30.5 C L 30.5 C L Temperature Source Core Core Pulse Rate 48 L 51 L 49 L Respiratory Rate 20 20 Blood Pressure 90/53 L 103/59 L O2 Saturation 96 96 Oxygen Delivery Method O2 Source Mechanical ventilator Mechanical ventilator Fraction of Inspired Oxygen (FIO2) 40 FiO2 (%) 40 40 Pain Intensity 02/24/25 19:55 Temperature 30.3 C L Temperature Source Core Pulse Rate 48 L Respiratory Rate 20 Blood Pressure 91/49 L O2 Saturation 95 Oxygen Delivery Method O2 Source Mechanical ventilator Fraction of Inspired Oxygen (FIO2) FiO2 (%) 40 Pain Intensity Oxygen O2 Source Mechanical ventilator EKG (time done) 1749: EKG releavant findings:: EKG personally interpreted by author of this note. Relevant findings are: Sinus bradycardia with rate of 49, single PVC on the rhythm strip, IVCD and nonspecific ST changes without diagnostic abnormalities consistent with STEMI. Labs Labs: Laboratory Tests 02/24/25 02/24/25 02/24/25 17:34 17:36 17:36 WBC 12.1 H RBC 3.07 L Hgb 8.7 L Hct 27.6 L MCV 89.9 MCH 28.3 MCHC 31.5 L RDW 15.0 Plt Count 318 MPV 9.8 Neut # (Auto) Not Reportable Lymph # (Auto) Not Reportable [place] # (Auto) Not Reportable Eos # (Auto) Not Reportable Baso # (Auto) Not Reportable Absolute Nucleated RBC Not Reportable Total Counted 100 Band Neuts % (Manual) 7 Abnorm Lymph % (Manual) 0 Metamyelocytes % 8 H Nucleated RBC % Not Reportable Neutrophils # (Manual) 9.2 H Lymphocytes # (Manual) 1.0 L Monocytes # (Manual) 0.7 Eosinophils # (Manual) 0.2 Basophils # (Manual) 0.0 Differential Comment MANUAL DIFFERENTIAL Manual Slide Review Indicated WBC Morphology 1+AGRANULAR/HYPOGRAN Platelet Estimate NORMAL (130-450,000) Platelet Morphology NORMAL APPEARANCE RBC Morph Micro Appear 1+ ANISOCYTOSIS 1+ ACANTHOCYTES VBG pH VBG pCO2 VBG pO2 VBG HCO3 VBG Total CO2 VBG O2 Saturation VBG Base Excess Sodium 134 L Potassium 4.1 Chloride 107 Carbon Dioxide 22 Anion Gap 5.0 L BUN 61 H Creatinine 1.2 Estimated GFR (MDRD) 59 L Glucose 163 H Lactic Acid 1.4 Calcium 9.0 Magnesium 2.0 Total Bilirubin 0.3 AST 44 H ALT 36 Alkaline Phosphatase 142 H Total Creatine Kinase 126 Troponin I High Sens 5.2 B-Natriuretic Peptide Total Protein 5.5 L Albumin 3.0 L Globulin 2.5 Albumin/Globulin Ratio 1.2 Urine Color Urine Clarity Urine pH Ur Specific [place] Urine Protein Urine Glucose (UA) Urine Ketones Urine Occult Blood Urine Nitrite Urine Bilirubin Urine Urobilinogen Ur Leukocyte Esterase Ur Microscopic Review Urine Culture Comments Nasal Adenovirus (PCR) Nasal B. parapertussis DNA (PCR) Nasal Coronavir 229E PCR Nasal Coronavir HKU1 PCR Nasal Coronavir NL63 PCR Nasal Coronavir OC43 PCR Nasal Enterovir/Rhinovir PCR Nasal Influenza B PCR Nasal Influenza A PCR Nasal Parainfluen 1 PCR Nasal Parainfluen 2 PCR Nasal Parainfluen 3 PCR Nasal Parainfluen 4 PCR Nasal RSV (PCR) Nasal B.pertussis DNA PCR Nasal C.pneumoniae (PCR) Long Human Metapneumo PCR Nasal M.pneumoniae (PCR) Nasal SARS-CoV-2 (PCR) Urine Opiates Screen Ur Buprenorphine Scrn Ur Oxycodone Screen Urine Methadone Screen Urine Fentanyl Screen Ur Barbiturates Screen Ur Tricyclics Screen Ur Phencyclidine Scrn Ur Amphetamine Screen U Methamphetamines Scrn U Benzodiazepines Scrn Urine Cocaine Screen U Cannabinoids Screen Ur Drug Screen Comment Ethyl Alcohol < 10.0 02/24/25 02/24/25 02/24/25 17:37 17:44 18:15 WBC RBC Hgb Hct MCV MCH MCHC RDW Plt Count MPV Neut # (Auto) Lymph # (Auto) [place] # (Auto) Eos # (Auto) Baso # (Auto) Absolute Nucleated RBC Total Counted Band Neuts % (Manual) Abnorm Lymph % (Manual) Metamyelocytes % Nucleated RBC % Neutrophils # (Manual) Lymphocytes # (Manual) Monocytes # (Manual) Eosinophils # (Manual) Basophils # (Manual) Differential Comment Manual Slide Review WBC Morphology Platelet Estimate Platelet Morphology RBC Morph Micro Appear VBG pH 7.124 L* VBG pCO2 51.0 VBG pO2 112.8 H VBG HCO3 16.9 L VBG Total CO2 18.5 L VBG O2 Saturation 98.0 H VBG Base Excess -12.6 L Sodium Potassium Chloride Carbon Dioxide Anion Gap BUN Creatinine Estimated GFR (MDRD) Glucose Lactic Acid Calcium Magnesium Total Bilirubin AST ALT Alkaline Phosphatase Total Creatine Kinase Troponin I High Sens B-Natriuretic Peptide 673 H Total Protein Albumin Globulin Albumin/Globulin Ratio Urine Color Urine Clarity Urine pH Ur Specific [place] Urine Protein Urine Glucose (UA) Urine Ketones Urine Occult Blood Urine Nitrite Urine Bilirubin Urine Urobilinogen Ur Leukocyte Esterase Ur Microscopic Review Urine Culture Comments Nasal Adenovirus (PCR) NOT DETECTED Nasal B. parapertussis DNA (PCR) NOT DETECTED Nasal Coronavir 229E PCR NOT DETECTED Nasal Coronavir HKU1 PCR NOT DETECTED Nasal Coronavir NL63 PCR NOT DETECTED Nasal Coronavir OC43 PCR NOT DETECTED Nasal Enterovir/Rhinovir PCR NOT DETECTED Nasal Influenza B PCR NOT DETECTED Nasal Influenza A PCR NOT DETECTED Nasal Parainfluen 1 PCR NOT DETECTED Nasal Parainfluen 2 PCR NOT DETECTED Nasal Parainfluen 3 PCR NOT DETECTED Nasal Parainfluen 4 PCR NOT DETECTED Nasal RSV (PCR) NOT DETECTED Nasal B.pertussis DNA PCR NOT DETECTED Nasal C.pneumoniae (PCR) NOT DETECTED Long Human Metapneumo PCR NOT DETECTED Nasal M.pneumoniae (PCR) NOT DETECTED Nasal SARS-CoV-2 (PCR) NOT DETECTED Urine Opiates Screen Ur Buprenorphine Scrn Ur Oxycodone Screen Urine Methadone Screen Urine Fentanyl Screen Ur Barbiturates Screen Ur Tricyclics Screen Ur Phencyclidine Scrn Ur Amphetamine Screen U Methamphetamines Scrn U Benzodiazepines Scrn Urine Cocaine Screen U Cannabinoids Screen Ur Drug Screen Comment Ethyl Alcohol 02/24/25 18:27 WBC RBC Hgb Hct MCV MCH MCHC RDW Plt Count MPV Neut # (Auto) Lymph # (Auto) [place] # (Auto) Eos # (Auto) Baso # (Auto) Absolute Nucleated RBC Total Counted Band Neuts % (Manual) Abnorm Lymph % (Manual) Metamyelocytes % Nucleated RBC % Neutrophils # (Manual) Lymphocytes # (Manual) Monocytes # (Manual) Eosinophils # (Manual) Basophils # (Manual) Differential Comment Manual Slide Review WBC Morphology Platelet Estimate Platelet Morphology RBC Morph Micro Appear VBG pH VBG pCO2 VBG pO2 VBG HCO3 VBG Total CO2 VBG O2 Saturation VBG Base Excess Sodium Potassium Chloride Carbon Dioxide Anion Gap BUN Creatinine Estimated GFR (MDRD) Glucose Lactic Acid Calcium Magnesium Total Bilirubin AST ALT Alkaline Phosphatase Total Creatine Kinase Troponin I High Sens B-Natriuretic Peptide Total Protein Albumin Globulin Albumin/Globulin Ratio Urine Color YELLOW Urine Clarity CLEAR Urine pH 5.0 Ur Specific [place] 1.015 Urine Protein NEGATIVE Urine Glucose (UA) NEGATIVE Urine Ketones NEGATIVE Urine Occult Blood NEGATIVE Urine Nitrite NEGATIVE Urine Bilirubin NEGATIVE Urine Urobilinogen 0.2 (NORMAL) Ur Leukocyte Esterase NEGATIVE Ur Microscopic Review NOT INDICATED Urine Culture Comments NOT INDICATED Nasal Adenovirus (PCR) Nasal B. parapertussis DNA (PCR) Nasal Coronavir 229E PCR Nasal Coronavir HKU1 PCR Nasal Coronavir NL63 PCR Nasal Coronavir OC43 PCR Nasal Enterovir/Rhinovir PCR Nasal Influenza B PCR Nasal Influenza A PCR Nasal Parainfluen 1 PCR Nasal Parainfluen 2 PCR Nasal Parainfluen 3 PCR Nasal Parainfluen 4 PCR Nasal RSV (PCR) Nasal B.pertussis DNA PCR Nasal C.pneumoniae (PCR) Long Human Metapneumo PCR Nasal M.pneumoniae (PCR) Nasal SARS-CoV-2 (PCR) Urine Opiates Screen NEGATIVE Ur Buprenorphine Scrn NEGATIVE Ur Oxycodone Screen NEGATIVE Urine Methadone Screen NEGATIVE Urine Fentanyl Screen Negative Ur Barbiturates Screen NEGATIVE Ur Tricyclics Screen NEGATIVE Ur Phencyclidine Scrn NEGATIVE Ur Amphetamine Screen NEGATIVE U Methamphetamines Scrn NEGATIVE U Benzodiazepines Scrn NEGATIVE Urine Cocaine Screen NEGATIVE U Cannabinoids Screen NEGATIVE Ur Drug Screen Comment CUTOFF CONC BELOW: Ethyl Alcohol Rads (name of study) 1v CXR: Relevant Findings:: Final report received and EMP independent interpretation of test Interpretation: Right IJ central venous catheter with tip in the distal SVC. No postprocedural pneumothorax. Appropriate positioning of the endotracheal tube. Bilateral airspace opacities, pulmonary edema versus multifocal pneumonia. Procedures Central Line - Major Central Line Preparation: Unable to obtain consent, Time out completed, Ultrasound used and Sterile prep and drape Central line location: Right IJ Central line type: Triple lumen Central line aftercare: Chlorhexidine disc placed, Secured, Placement confirmed, No pneumothorax, No complications and Bundle checklist complete PD Medical Decision Making ED course ED course: 74-year-old gentleman presents with acute respiratory failure marked with pedal edema, hypotension. Paramedics were talking to him on scene and he was neurologically normal reportedly. Confirmed full code. On arrival his endotracheal tube was hubbed without breath sounds on the left. It was pulled back with resolutions of breath and on the left. He was started on peripheral norepinephrine pending central line. He does look fluid overloaded peripherally. Workup demonstrates white count of 12.1, he is anemic but remote labs show anemia albeit not quite this bad. He has 8% metamyelocytes. Initial blood gas showing metabolic acidosis. CMP showing mild hyponatremia, hyperglycemia, no lactic acidosis, elevated BNP. Urinalysis was without infection, respiratory viral panel negative. Toxicology screening was negative. CT of the head independently interpreted by me with final read received was unremarkable except for foci of soft tissue gas to the deep spaces of the nasopharynx and muscles of mastication on the left which I presume was from intubation attempts? On my independent review of his CT of the chest I see no PE but it does look like he has got pneumonia so ordered Zosyn and vancomycin. Sepsis time of onset at [address] images were shot showing a source of sepsis. We titrate up the Levophed, even at 30 of Levophed pressures were still pretty poor and he remained bradycardic. Started second pressor agent and epinephrine which helped a lot and we are able to titrate down the Levophed and titrate up the epinephrine. Case discussed by phone with MIKE Monroy of our hospitalist service who is willing to admit to our ICU. There is no contact information. He is critically ill though. I spoke with the contact on the chart, Karen Patterson. She relates that this patient has been living with them for 30 years. She relates there is no family, I asked if there was a power of deputy county attorney and she tells me that someone named "" was in the process of obtaining power of deputy county attorney but it was not completed. Subsequently I spoke on the phone with the gentleman by the name of and he actually tells me that the POA was signed but not notarized. I updated MIKE Monroy with this information. Critical Care Critical Care Provided: Yes Time(min): 60 Time Includes: Direct patient care, Review records, Reassess patient, Document care, Coordinate care and Medical consult Data interpretation: Labs and Pulse ox Procedures included in critical care time: Peripheral IV Procedures excluded from critical care time: Central IV and EKG Discharge Plan Discharge Patient Disposition: 66 [facility] DC/Xfer Condition: Critical Clinical Impression: Congestive heart failure, Respiratory failure, Pneumonia, Septic shock
[2025-02-24 17:42] LABS: RED CELL DISTRIBUTION WIDTH 15.0 % (12.0-15.0)
[2025-02-24] MEDS: NOREPINEPHRINE/0.9 % NS 8 MG/250 ML BAG IV SCH ×2 (17:44→22:18)
[2025-02-24 17:45] LABS: HCT - HEMATOCRIT 27.6 % (42.0-52.0); HGB - HEMOGLOBIN 8.7 g/dL (14.0-18.0); MEAN PLATELET VOLUME 9.8 fL (7.4-11.4); PLT - PLATELET COUNT 318 10^3/uL (130-450)
[2025-02-24 17:51] LABS: VBG PCO2 51.0 mmHg (41-51)
[2025-02-24 17:52] LABS: VBG BASE EXCESS -12.6 mmol/L (-2 - +2); VBG PO2 112.8 mmHg (25-47); VBG TOTAL CO2 18.5 mmol/L (24-29)
[2025-02-24 17:54] LABS: VBG PH 7.124 (7.31-7.41)
[2025-02-24 17:55] LABS: SLIDE REVIEW? Indicated
[2025-02-24 17:56] LABS: ABNORMAL LYMPHS % (MANUAL) 0 %; BASOPHILS # (MANUAL) 0.0 10^3/uL (0-0.1)
[2025-02-24 17:57] LABS: ALT ALANINE AMINOTRANSFERASE 36 IU/L (10-60); AST ASPARTATE AMINOTRANSFERASE 44 IU/L (10-42); BUN - BLOOD UREA NITROGEN 61 mg/dL (6-20); CARBON DIOXIDE - CO2 22 mmol/L (21-32); CK- CREATINE KINASE 126 IU/L (30-223); CREATININE 1.2 mg/dL (0.6-1.3); ETOH - ETHANOL < 10.0 mg/dL; GFR - MDRD 59 (>89)
[2025-02-24 18:13] LABS: BAND NEUTROPHILS % (MANUAL) 7 %; EOSINOPHILS # (MANUAL) 0.2 10^3/uL (0-0.7); LYMPHOCYTES # (MANUAL) 1.0 10^3/uL (1.5-3.5); LYMPHOCYTES % (MANUAL) 8 %; METAMYELOCYTES % (MANUAL) 8 %; MONOCYTES # (MANUAL) 0.7 10^3/uL (0.0-1.0); NEUTROPHILS # (MANUAL) 9.2 10^3/uL (1.5-6.6)
[2025-02-24 18:15] LABS: PLATELET ESTIMATE, MANUAL NORMAL (130-450,000) (NORMAL); PLATELET MORPHOLOGY NORMAL APPEARANCE (NORMAL); WBC MORPHOLOGY (MULTIPLE) 1+AGRANULAR/HYPOGRAN (NORMAL)
[2025-02-24] MEDS ORDERED: EPINEPHrine 4 MG in DEXTROSE 5% 246 ML IV STA (18:38)
--- NOTE | 2025-02-24 18:43 | XRAY Report ---
PROCEDURE: XR Chest for Line Placement INDICATIONS: RIJ CVC TECHNIQUE: One view of the chest was acquired. COMPARISON: CXR on 02/24/2025 FINDINGS: Surgical changes and devices: Endotracheal tube with tip in the midthoracic trachea 4.8 cm above the werner. Subdiaphragmatic enteric tube with tip distal [id number]. Right IJ central venous catheter with tip in the distal SVC. Lungs and pleura: No visualized large pleural effusion. Bilateral airspace opacities. Mediastinum: Mediastinal contours appear normal. Heart size is normal. Bones and chest wall: No suspicious bony lesions. Overlying soft tissues appear unremarkable. IMPRESSION: Right IJ central venous catheter with tip in the distal SVC. No postprocedural pneumothorax. Appropriate positioning of the endotracheal tube. Bilateral airspace opacities, pulmonary edema versus multifocal pneumonia. Reviewed by: Fabio Puri MD on 02/24/2025 6:39 PM PST Approved by: Fabio Puri MD on 02/24/2025 6:39 PM PST Station ID: [id number]
--- NOTE | 2025-02-24 18:46 | XRAY Report ---
PROCEDURE: XR Chest 1V INDICATIONS: resp fail TECHNIQUE: One view of the chest was acquired. COMPARISON: None. FINDINGS: Surgical changes and devices: Endotracheal tube approximately 5 cm above the level the werner. Enteric tube tip may be within the distal esophagus. Lungs and pleura: No pleural effusions or pneumothorax. Extensive consolidation bilaterally. Mediastinum: Mediastinal contours appear normal. Heart size is normal. Bones and chest wall: No suspicious bony lesions. Overlying soft tissues appear unremarkable. IMPRESSION: 1. Extensive consolidation bilaterally. Differential considerations include ARDS, pneumonia, pulmonary hemorrhage, pulmonary edema. 2. Enteric tube may end within the distal esophagus. Reviewed by: Chester Jaeger MD on 02/24/2025 6:43 PM PST Approved by: Chester Jaeger MD on 02/24/2025 6:43 PM PST Station ID: [email or web address]
[2025-02-24] MEDS: NACL IV STA (18:49)
[2025-02-24] MEDS: EPINEPHRINE IV STA (18:49)
[2025-02-24 18:54] LABS: GLUCOSE, URINE (UA) NEGATIVE (NEGATIVE); KETONES,URINE (UA) NEGATIVE (NEGATIVE); OCCULT BLOOD,URINE NEGATIVE (NEGATIVE)
[2025-02-24 19:04] LABS: AMPHETAMINE SCREEN,URINE NEGATIVE (NEGATIVE); BARBITURATE SCREEN,UR NEGATIVE (NEGATIVE); BENZODIAZEPINES SCREEN, URINE NEGATIVE (NEGATIVE); BUPRENORPHINE SCREEN, URINE NEGATIVE (NEGATIVE); COCAINE SCREEN URINE NEGATIVE (NEGATIVE); METHADONE SCREEN, URINE NEGATIVE (NEGATIVE); METHAMPHETAMINES SCREEN, URINE NEGATIVE (NEGATIVE); OPIATE SCREEN, URINE NEGATIVE (NEGATIVE); THC CANNABINOID SCREEN, URINE NEGATIVE (NEGATIVE)
[2025-02-24 19:23] LABS: B. PARAPERTUSSIS- RESP PCR PAN NOT DETECTED; B. PERTUSSIS- RESP PCR PANEL NOT DETECTED; C. PNEUMONIAE- RESP PCR PANEL NOT DETECTED; CORONAVIRUS 229E-RESP PCR NOT DETECTED; CORONAVIRUS HKU1-RESP PCR NOT DETECTED; CORONAVIRUS NL63-RESP PCR NOT DETECTED; CORONAVIRUS OC43-RESP PCR NOT DETECTED; HUMAN METAPNEUMOVIRUS NOT DETECTED; INFLUENZA A- RESP PCR PANEL NOT DETECTED; INFLUENZA B - RESP PCR PANEL NOT DETECTED; M. PNEUMONIAE- RESP PCR PANEL NOT DETECTED; PARAINFLUENZA VIRUS 1 NOT DETECTED; PARAINFLUENZA VIRUS 2 NOT DETECTED; PARAINFLUENZA VIRUS 4 NOT DETECTED; RHINOVIRUS/ENTEROVIRUS NOT DETECTED; RSV- RESP PCR PANEL NOT DETECTED; SARS-CoV-2 -RESP PCR PANEL NOT DETECTED
--- NOTE | 2025-02-24 19:38 | CT Report ---
PROCEDURE: CT Head WO INDICATIONS: ams TECHNIQUE: CT of the head was performed, without intravenous contrast. Reformats: Coronal and sagittal. For radiation dose reduction, the following was used: automated exposure control, adjustment of mA and/or kV according to patient size. COMPARISON: None. FINDINGS: Image quality: Diagnostic. CSF spaces: Basal cisterns are patent. No extra-axial fluid collections. Ventricles are normal in size and shape. Brain: No midline shift. No intracranial mass effect or hemorrhage. Combs- white matter interface is normal. Skull and face: No visible fracture. Nasopharynx is filled with fluid. There are foci of gas within the posterior nasal cavity and tracking along the left masseter and temporalis muscles. Sinuses: Visualized sinuses and mastoids are clear. IMPRESSION: 1. No acute intracranial pathology. 2. Foci of soft tissue gas in the deep spaces nasopharynx and muscles of mastication on the left. Reviewed by: Chester Jaeger MD on 02/24/2025 7:35 PM PST Approved by: Chester Jaeger MD on 02/24/2025 7:35 PM PST Station ID: [email or web address]
--- NOTE | 2025-02-24 19:49 | CT Report ---
PROCEDURE: CT Angio Chest INDICATIONS: resp fail, pe protocol CONTRAST: 100 ML OMNI 300 TECHNIQUE: After the administration of intravenous contrast images of the chest were acquired. 3-dimensional coronal oblique maximum intensity projection (MIP) reformats, axial MIP, and coronal and sagittal MPR reformats were then performed through the chest. For radiation dose reduction, the following was used: automated exposure control, adjustment of mA and/or kV according to patient size. COMPARISON: None FINDINGS: Image quality: Excellent. Large vessels: No filling defects within the opacified pulmonary arteries, accounting for motion and contrast timing. No evidence of acute aortic syndrome or aortic aneurysm. Lungs and pleura: Extensive consolidation most confluent in the left lower lobe with a tree-in-bud pattern elsewhere. Bronchi to the left lower lobe are opacified by fluid. There is fluid in segmental bronchi to the right lower lobe. Bronchial wall thickening. Endotracheal tube terminates in the mid trachea. No pleural effusions. No pneumothorax. No suspicious pulmonary nodules which require follow up. Mediastinum: Heart size is normal. No pericardial effusion. Main pulmonary artery measures 4.2 cm. No mediastinal adenopathy by size criteria. Enteric tube terminates in the distal esophagus. Chest wall and lower neck: Thyroid is unremarkable. No axillary or supraclavicular adenopathy by size. Bones: No aggressive osseous abnormality. Multilevel degenerative changes of the thoracic spine. Upper Abdomen: Unremarkable. IMPRESSION: 1. Extensive consolidation likely representing aspiration pneumonitis or pneumonia given fluid in the airways. 2. Enteric tube terminates in the esophagus. 3. Main pulmonary artery dilation which is associated with pulmonary hypertension but no filling defect to suggest pulmonary embolism. . Reviewed by: Chester Jaeger MD on 02/24/2025 7:46 PM PST Approved by: Chester Jaeger MD on 02/24/2025 7:46 PM PST Station ID: [email or web address]
[2025-02-24] MEDS ORDERED: VANCOMYCIN 1 GM VIAL ONE (19:53)
[2025-02-24] MEDS: PIPERACILLIN/TAZOBACTAM 4.5 GM in SODIUM CHLORIDE 0.9% MINIBAG 100 ML IV STA (19:58)
[2025-02-24] MEDS: VANCOMYCIN INJ 1.5 GM in SODIUM CHLORIDE 0.9% 500 ML IV STA (20:13)
--- NOTE | 2025-02-24 20:43 | HISTORY & PHYSICAL EXAMINATION ---
Chief Complaint Chief Complaint Chief Complaint: found down History of Present Illness Admitted From Admitted From:: home History Obtained From Records Reviewed: none available History obtained from: ED MD, EMS reports Exam Limitations: Phani is intubated, sedated and not responsive. History of Present Illness HPI Comment/Other: 74-year-old male with minimal contact with the healthcare system presents to the emergency department this evening after being found in extremis by EMS. Reportedly has had minimal contact with the healthcare system. In our EMR I can see that he had a hip fracture which was repaired in 2019. (L fem neck fx repaired w hemiarthroplasty) No daily medications. [place] in [place] and apparently has lived there for about 30 years. He lives in one of the out buildings. He apparently has not been feeling well the last few days and has been treated with some veterniary antibiotics. Seen here in our ED 01/30/25 for right hip pain, imaging negative. looking at images, he apparently had repair of a right hip fracture since 2019. Reportedly EMS was called and at the time he was conscious and talking. It seems that he then started to produce some frothy sputum and became very short of breath. He was hypotensive and intubated on the scene. Apparently EMS had a CODE STATUS discussion with him and at that point he wanted everything done. Looking at the prehospital report it looks like he got 200 mg of ketamine, 200 mg of succinylcholine 5 of Versed and 100 mcg of fentanyl at intubation. I am seeing him several hours after this. In the field he had a blood pressure of 77/42 and a heart rate of 54 his O2 sat was 96%. It is unclear if this is pre or post intubation. In the emergency department Dr. Wolf has had some discussions with the people on whose farm he lives. They have known him for 30 years. They say that there is a signed but not notarized power of health care attorney. So, will need further discussions regarding decisions for his care. Meds/Allgy Home Medications Ambulatory Orders Medication Instructions Recorded Confirmed acetaminophen 325 mg tablet 650 mg (2 x 325 mg) PO Q4H R PRN 06/26/18 Pain Or Fever > 38c (100.4f) ##30 aspirin 325 mg tablet,delayed 325 mg PO BIDWM ##30 release ferrous gluconate 240 mg (27 mg 240 mg PO DAILY #30 ta bs 06/26/18 iron) tablet hydrocodone 5 mg-acetaminophen 325 1 tab PO Q4HR PRN P ain 5 to 7 ##14 06/26/18 mg tablet polyethylene glycol 3350 17 gram 17 g PO DAILY ##30 oral powder packet oxycodone 5 mg tablet 5 mg PO TID PRN pain #10 tab s 01/30/25 Allergies Allergies Allergy/AdvReac Type Severity Reaction Status Date / Time codeine AdvReac Nausea Verified 02/24/25 17:38 PFSH Active Problems All Active Problems (Updated 02/24/25 @ 20:20 by MIKE Houston) Hypothermia (Acute) Septic shock (Acute) Pneumonia (Acute) Respiratory failure (Acute) Congestive heart failure (Acute) Medical History Medical History (Updated 02/24/25 @ 20:20 by MIKE Houston) Right hip pain Femur fracture, right Social History Social History (Updated 02/24/25 @ 17:40 by Yin Lynn RN) Living arrangement: At home Marital Status: Single Living Condition: Alone Do you feel safe in your home environment?: Yes History of physical, verbal, emotional, or financial abuse?: No POLST Patient has POLST: No POLST on file?: No POLST CPR Status: Attempt Resuscitation (CPR) Level of Medical Intervention: Full Treatment Review of Systems Status of ROS: unobtainable due to endotracheal tube Prior Level of Functionality: independent, unhoused Exam Exam Vital Signs: Vital Signs x48h Temp Pulse Resp BP BP Pulse Ox 02/24/25 21:44 91/46 L 02/24/25 21:28 30.4 C L 50 L 20 89/50 L 95 02/24/25 19:55 30.3 C L 48 L 20 91/49 L 95 02/24/25 19:45 30.5 C L 49 L 20 103/59 L 96 02/24/25 19:26 51 L 02/24/25 19:25 30.5 C L 48 L 20 90/53 L 96 02/24/25 19:15 30.4 C L 46 L 20 86/50 L 97 02/24/25 19:15 31.0 C L 46 L 20 86/50 L 98 02/24/25 18:45 30.8 C L 43 L 20 87/49 L 98 02/24/25 18:36 30.9 C L 43 L 20 84/50 L 98 02/24/25 18:30 31.0 C L 43 L 20 84/45 L 98 02/24/25 18:23 43 L 20 84/41 L 98 02/24/25 18:10 44 L 20 79/43 L 98 02/24/25 18:05 45 L 20 77/43 L 98 02/24/25 18:04 64 20 76/43 L 98 02/24/25 17:59 45 L 20 69/39 L 98 02/24/25 17:54 45 L 20 60/36 L 02/24/25 17:44 43 L 20 55/33 L 98 02/24/25 17:40 47 L 20 62/36 L 92 02/24/25 17:37 48 L 20 63/34 L 92 02/24/25 17:35 48 L 02/24/25 17:34 48 L 20 74/38 L 97 02/24/25 17:27 55 L 16 95/47 L Constitutional poorly groomed, intubated. HENMT normocephalic and head/scalp atraumatic Eyes conjunctivae normal pupils pinpoint, reactive Neck/C-Spine visual inspection normal and trachea midline Lymph no lymphadenopathy noted Chest inspection of chest normal and palpation of chest normal Respiratory breath sounds equal bilaterally coarse crackles in all lung singer Cardiovascular sinus bradycardia Gastrointestinal abdomen soft to palpation Extremities 2+ pitting edema bilaterally. Neurology GCS 3 on fentanyl gtt. Skin skin color normal, no rash, no lesions and nails abnormality noted (hypertrophic nails ) was not able to visualize his posterior Sepsis Event Note (H) Evaluation Current Stage of Sepsis: Severe sepsis Possible source of Sepsis: positive Pulmonary Sepsis Criteria Sepsis Criteria: Recorded Temperature greater than 38.3C or Less than 36C, DRIVER: altered consciousness (unrelated to primary neuro pathology) and MAP less than 65 mmHg Conclusion/Plan Problem List (1) Septic shock: Plan: Patient presents with an ongoing illness hypotension hypothermia and bradycardia with a white blood cell count of 12 and obvious infiltrates bilaterally on chest x-ray. Discussed with Dr. Llamas in the emergency department I will admit this patient to inpatient status for treatment of his sepsis and acute respiratory failure. He is currently on a ventilator. I am treating him aggressively with Zosyn and vancomycin for his pneumonia which is causing his septic shock. I am not giving the patient sepsis dose fluids due to the concurrent picture of pulmonary edema. He is currently requiring pressors, norepinephrine at 28 mcg/min and epinephrine at 5 mcg/min. Given the severity of this patient's illness I am starting him immediately on hydrocortisone both for stress response and for inflammation that is evident on imaging in his lungs. (2) Respiratory failure: Plan: I do not have any documentation of what his oxygen saturation was in the field on room air or otherwise. He is currently satting 96%. On assist-control,40% FiO2 with a PEEP of 5. Rate of 20 tidal volume of 450. I have ordered an ABG on arrival to the ICU. I will adjust ventilator settings accordingly. For sedation he is currently on a fentanyl drip at 77 mcg/h. He is unresponsive to pain at this time. (3) Hypothermia: Plan: This patient is currently being treated with norepinephrine and epinephrine titrated to a MAP of 65. It should be noted that the efficacy of these medications is reduced at a body temperature of less than 30 C. This patient came in with a body temperature of 30.5 C. He has a temp probe Mireles in place and also has a Norbert hugger in place. When I am seeing him in the emergency department his temp is up to 31 C. We will continue active rewarming and hope that his bradycardia and hypotension improves as we are able to treat his hypothermia. (4) Pneumonia: Plan: Bilateral pneumonia seen on CTA of the thorax. Patient with frothy sputum prior to intubation. He has been treated with vancomycin and Zosyn. His vent settings are minimal given his degree of critical illness, 40% FiO2 with a PEEP of 5. (5) Congestive heart failure: Plan: Appears to have some element of CHF, possibly due to right heart failure looking at the CTA of the chest results. I have ordered echocardiogram for the morning. At this point I am going to try to keep his fluids minimal. He is getting lots of fluids with his pressor dosing and therefore will not run maintenance fluids. He has 2-3+ pitting edema in his lower extremities at this time. His BNP on admission is 673. I do not have anything to compare this to. Plan This patient has a degree of critical illness that is threatening one or more vital organ systems. There is a probability of life threatening deterioration of his condition. I spent 30 minutes of critical care time with this patient today. This included coordination of care, review and ordering of lab work, adjusting medications and ventilator settings in conjunction with respiratory therapy.. Lab Results Lab results reviewed: Yes 02/24/25 17:36 02/24/25 17:34 Diagnostic Imaging Results Diagnostic Imaging Results Comments: Head CT: Negative. Foci of soft tissue gas in the deep spaces of the nasopharynx and muscles of mastication on the left CTA thorax extensive consolidation bilaterally bronchial wall thickening. Findings consistent with pulmonary hypertension but no findings consistent with PE EKG Results EKG Interpreted Independently: Yes EKG Comparison: No prior EKG EKG Findings: Sinus bradycardia Core Measures Anticipated LOS I expect patient to be DC'd or transferred within 96 hours.: Yes DVT/VTE - Prophylaxis VTE/DVT Device ordered at admit?: Yes VTE/DVT Prophylaxis med ordered at admit?: Yes
--- NOTE | 2025-02-24 21:09 | XRAY Report ---
PROCEDURE: XR No-Charge 1V Abdomen INDICATIONS: eval NGT TECHNIQUE: 1 view of the abdomen were acquired. COMPARISON: None. FINDINGS AND IMPRESSION: An enteric tube is seen terminating at the GE junction. Recommend continued advancement. Percutaneous pacing pads. Many catheters and wires overlying the stomach, likely external. Left hip arthroplasty. Right hip fixation construct with heterotopic ossifications. Bladder probe. Increased colonic fecal loading. Reviewed by: Rajendra Hayes MD on 02/24/2025 9:06 PM PST Approved by: Rajendra Hayes MD on 02/24/2025 9:06 PM PST Station ID: [id number]
[2025-02-24] MEDS: HYDROCORTISONE SUCCINATE 100 MG/2 ML VIAL IVP SCH (22:17)
[2025-02-24] MEDS: EPINEPHrine 4 MG in DEXTROSE 5% 246 ML IV SCH (22:18)
[2025-02-24] MEDS: VASOPRESSIN 20 UNIT in DEXTROSE 5% 99 ML IV SCH (22:19)
[2025-02-24] MEDS: PIPERACILLIN/TAZOBACTAM 3.375 GM in SODIUM CHLORIDE 0.9% MINIBAG 100 ML IV SCH (22:39)
[2025-02-24 23:18] LABS: ABG PCO2 53 mmHg (34-45); ABG PO2 97 mmHg (83-108)
[2025-02-24] MEDS: SODIUM CHLORIDE FLUSH 0.9% 10 ML SYRINGE IVP SCH (23:18)
[2025-02-24 23:19] LABS: ABG BASE EXCESS -13.2 mmol/L (-2.0-3.0); ABG HCO3 16.7 mmol/L (22.0-26.0); ABG OXYGEN SATURATION 95 % (95-98); ABG TCO2 18.3 mmol/L (21.0-29.0)
[2025-02-24 23:20] LABS: ABG PH 7.10 (7.35-7.45)
[2025-02-24 23:21] LABS: ABG FRACTION OF INSPIRED O2 40.00; ABG MODE OF VENTILATION ASSIST/CONTROL; ABG RESPIRATORY RATE 20 b/min
[2025-02-24] MEDS: SODIUM BICARBONATE ABBOJECT 50 MEQ/50 ML SYRINGE IVP ONE (23:52)
[2025-02-25 01:29] LABS: ABG PCO2 51 mmHg (34-45); ABG PH 7.20 (7.35-7.45); ABG PO2 92 mmHg (83-108)
[2025-02-25 01:30] LABS: ABG BASE EXCESS -8.2 mmol/L (-2.0-3.0); ABG FRACTION OF INSPIRED O2 50.00; ABG HCO3 20.1 mmol/L (22.0-26.0); ABG MODE OF VENTILATION ASSIST/CONTROL; ABG OXYGEN SATURATION 97 % (95-98); ABG RESPIRATORY RATE 28 b/min; ABG TCO2 21.7 mmol/L (21.0-29.0)
[2025-02-25 04:36] LABS: HCT - HEMATOCRIT 28.3 % (42.0-52.0); HGB - HEMOGLOBIN 8.9 g/dL (14.0-18.0); MEAN PLATELET VOLUME 9.2 fL (7.4-11.4); NRBC ABSOLUTE COUNT (AUTO) 0.00 x10^3/uL; NUCLEATED RED BLOOD CELLS AUTO 0.0 /100WBC; PLT - PLATELET COUNT 284 10^3/uL (130-450); RED CELL DISTRIBUTION WIDTH 15.0 % (12.0-15.0)
[2025-02-25 04:40] LABS: VBG PH 7.266 (7.31-7.41)
[2025-02-25 04:45] LABS: ABG BASE EXCESS -5.2 mmol/L (-2.0-3.0); ABG HCO3 21.4 mmol/L (22.0-26.0); ABG OXYGEN SATURATION 95 % (95-98); ABG PCO2 44 mmHg (34-45); ABG PH 7.30 (7.35-7.45); ABG PO2 73 mmHg (83-108); ABG TCO2 22.8 mmol/L (21.0-29.0)
[2025-02-25 04:46] LABS: ABG FRACTION OF INSPIRED O2 40.00; ABG MODE OF VENTILATION ASSIST/CONTROL; ABG RESPIRATORY RATE 28 b/min
[2025-02-25 04:53] LABS: BUN - BLOOD UREA NITROGEN 62.0 mg/dL (6-20); CARBON DIOXIDE - CO2 23.0 mmol/L (21-32); CREATININE 1.4 mg/dL (0.6-1.3); GFR - MDRD 50.0 (>89)
[2025-02-25 05:02] LABS: RBC MORPHOLOGY (MULTIPLE) 2+ BURR CELLS (NORMAL); SLIDE REVIEW? Indicated
[2025-02-25 05:03] LABS: PLATELET ESTIMATE, MANUAL NORMAL (130-450,000) (NORMAL); PLATELET MORPHOLOGY NORMAL APPEARANCE (NORMAL); WBC MORPHOLOGY (MULTIPLE) 1+ DOHLE BODIES (NORMAL)
[2025-02-25] MEDS: MAGNESIUM SULFATE 2 GRAM 2 GM/50 ML BAG IV ONE (05:20)
[2025-02-25] MEDS: DEXTROSE 50% ABBOJECT 25 GM/50 ML SYRINGE IVP ONE (05:21)
[2025-02-25] MEDS: DEXTROSE 5%-0.45% NACL 1,000 ML IV SCH (05:47)
[2025-02-25] MEDS: PANTOPRAZOLE 40 MG VIAL IVP SCH (06:10)
--- NOTE | 2025-02-25 07:10 | PROVIDER PROGRESS NOTE ---
Subjective Prog Note Date Prog Note Date: 02/25/25 Prog Note Time: 07:08 Subjective Subjective: This is a 74-year-old male who is minimally housed ([place] in [place]) with limited healthcare interactions prior to this hospitalization who was found in acute hypoxemic respiratory failure by EMS. He is currently admitted to the ICU in septic shock and intubated. Waking up somewhat per nursing reports. Temperature increased overnight from 30 C to 37.7 C. His heart rate is stabilized in sinus rhythm. His blood sugars have stabilized on D5 1/2NS. His pressor requirement is still high on vasopressin and Levophed 30 mcg/min. WBC went from 12.1-3.8. Hgb went from 8.7-8.9. ABG pH 7.3 with mild respiratory acidosis. ABG sat 95%. Dropped his tidal volume down to LPV levels (TV 8 cc/kg IBW). And ABG remained effectively unchanged. Patient is not exhibiting any volitional responses. He well thrash somewhat when fentanyl was weaned, but otherwise is nonresponsive. Current Medications Current Medications Current Medications: Current Medications Generic Name Dose Route Start Last Admin Trade Name Freq PRN Reason Stop Dose Admin Enoxaparin Sodium 80 mg 02/25/25 08:00 Enoxaparin 100 Mg/Ml Syringe 1 mg/kg (80 mg) SUBQ ONCE AILEEN Hydrocortisone Sodium Succinate 50 mg 02/24/25 21:00 02/25/25 03:04 Hydrocortisone Succinate 100 Mg/2 Ml Vial IVP 03/01/25 15:01 50 mg Q6H AILEEN Administration Fentanyl 2,500 mcg/ Sodium 250 mls @ 10 mls/hr 02/24/25 17:32 02/25/25 03:21 Chloride IV 02/25/25 18:31 77 mcg/hr .Q25H STA 7.7 mls/hr Protocol Titration 100 MCG/HR Piperacillin Sod/Tazobactam 100 mls @ 25 mls/hr 02/24/25 23:00 02/25/25 06:26 Sod 3.375 gm/ Sodium Chloride IV 25 mls/hr Q8H AILEEN Administration Fentanyl 2,500 mcg/ Sodium 250 mls @ 7.69 mls/hr 02/24/25 21:38 02/24/25 22:08 Chloride IV Not Given .[id number] AILEEN Protocol 1 MCG/KG/HR Epinephrine HCl 4 mg/ Dextrose 250 mls @ 18.75 mls/hr 02/24/25 21:38 02/24/25 22:18 IV Not Given .[id number] AILEEN Protocol 5 MCG/MIN Norepinephrine/Sodium Chloride 8 mg in 250 mls @ 15 mls/hr 02/24/25 21:38 02/25/25 05:49 Levophed 8 Mg/250-0.9% Nacl IV 30 mcg/min .[id number] AILEEN 56.25 mls/hr Protocol Administration 8 MCG/MIN Vasopressin 20 unit/ Dextrose 100 mls @ 6 mls/hr 02/24/25 22:00 02/25/25 03:16 IV 0.03 unit/min .[id number] AILEEN 9 mls/hr 0.02 UNIT/MIN Titration Vancomycin HCl 1.25 gm/ Sodium 250 mls @ 167 mls/hr 02/25/25 19:00 Chloride IV Q24H AILEEN Dextrose/Sodium Chloride 1,000 mls @ 50 mls/hr 02/25/25 06:00 02/25/25 05:47 D5.45ns IV 50 mls/hr .Q20H AILEEN Administration Pantoprazole Sodium 40 mg 02/25/25 07:00 02/25/25 06:10 Pantoprazole 40 Mg Vial IVP 40 mg QDAC AILEEN Administration Sodium Chloride 10 ml 02/25/25 01:00 02/24/25 23:18 Sodium Chloride Flush 0.9% 10 Ml Syringe IVP 10 ml 0100,[id number],1700 AILEEN Administration Sodium Chloride 10 ml 02/24/25 21:38 Sodium Chloride Flush 0.9% 10 Ml Syringe IVP PRN PRN NEEDED PER PROVIDER ORDERS Vancomycin HCl 1 each 02/24/25 21:38 Vancomycin: Pharmacy To Dose MC .ONCE PRN PER PHARMACY Objective Vital Signs/Intake & Output Reviewed Vital Signs: Yes Vital Signs: Vital Signs x48h Temp Pulse Pulse Resp BP Pulse Ox O2 Flow Rate 02/25/25 07:00 37.5 C 75 28 H 96/59 L 96 02/25/25 06:00 36.7 C 80 28 H 98/61 96 02/25/25 05:45 81 100/62 02/25/25 05:30 83 101/62 02/25/25 05:15 80 103/61 02/25/25 05:00 37.6 C 80 28 H 96/60 96 02/25/25 04:50 81 02/25/25 04:45 81 102/62 02/25/25 04:30 81 97/60 02/25/25 04:23 83 95/58 L 02/25/25 04:15 84 109/66 02/25/25 04:00 37.1 C 84 28 H 100/60 95 40 02/25/25 03:45 36.9 C 82 25 H 96/60 95 02/25/25 03:30 36.7 C 81 29 H 103/52 L 97 02/25/25 03:25 80 02/25/25 03:15 36.4 C L 81 25 H 110/59 L 99 02/25/25 03:00 36.0 C L 85 26 H 110/67 100 02/25/25 02:55 78 108/53 L 02/25/25 02:50 78 109/56 L 02/25/25 02:45 79 118/78 02/25/25 02:40 77 112/69 02/25/25 02:35 75 119/73 02/25/25 02:30 77 85/54 L 02/25/25 02:25 78 112/74 02/25/25 02:20 78 88/63 L 02/25/25 02:10 81 91/59 L 02/25/25 02:05 74 86/68 L 02/25/25 02:00 34.8 C L 73 29 H 92/53 L 99 02/25/25 01:51 82/58 L 02/25/25 01:50 78 82/58 L 02/25/25 01:45 71 77/53 L 02/25/25 01:40 71 82/60 L 02/25/25 01:35 70 84/67 L 02/25/25 01:30 68 90/45 L 02/25/25 01:26 86/57 L 02/25/25 01:25 70 86/57 L 02/25/25 01:21 67 90/60 02/25/25 01:16 67 94/62 02/25/25 01:10 67 86/62 L 02/25/25 01:00 33.6 C L 67 28 H 86/60 L 93 02/25/25 00:52 64 02/25/25 00:45 63 96/46 L 02/25/25 00:30 61 89/56 L 02/25/25 00:25 67 94/59 L 02/25/25 00:20 63 99/60 02/25/25 00:15 58 L 107/57 L 02/25/25 00:10 59 L 107/58 L 02/25/25 00:05 32.5 C L 58 L 28 H 104/58 L 95 02/25/25 00:00 32.5 C L 58 L 28 H 116/60 93 02/24/25 23:55 32.3 C L 57 L 28 H 82/53 L 94 02/24/25 23:50 32.2 C L 56 L 28 H 104/56 L 93 02/24/25 23:45 57 L 100/55 L 02/24/25 23:40 32.1 C L 58 L 28 H 103/58 L 02/24/25 23:35 32 C L 60 28 H 102/49 L 95 02/24/25 23:30 60 02/24/25 23:30 93/49 L 02/24/25 23:10 91/47 L Intake & Output: Intake & Output 02/22/25 02/23/25 02/24/25 02/25/25 23:59 23:59 23:59 23:59 Intake Total 936 / 936 666 / 666 Output Total 360 / 360 225 / 225 Balance 576 / 576 441 / 441 Weight (kg) 76.9 kg 77.5 kg Objective Comments/Other: GEN: Intubated, sedated. Eyes open but rolled back. Does not respond to aggressive stimuli. HEENT: NC/AT, normal appearance of external ears and nose. Mucous membranes dry. Cardiac: Regular rate and rhythm, no murmurs. Edematous in the bilateral lower extremities. Pulm: Coarse lung sounds bilateral lungs. Ventilated. Not overbreathing the vent. Abdomen: Soft, nontender, nondistended. Extremities: Well-developed. Normal tone. Lower extremity edema. Neuro: Does not rouse to voice or aggressive stimuli. No volitional movements with minimal sedation (1 mcg/kg fentanyl) Psych: Unable to assess Lab Results 02/25/25 04:22 02/25/25 04:22 Other Labs: Lab Results x24hrs 02/25/25 02/25/25 02/25/25 Range/Units 05:45 05:22 04:35 WBC (4.8-10.8) x10^3/uL RBC (4.70-6.10) 10^6/uL Hgb (14.0-18.0) g/dL Hct (42.0-52.0) % MCV (80.0-94.0) fL MCH (27.0-31.0) pg MCHC (32.0-36.0) g/dL RDW (12.0-15.0) % Plt Count (130-450) 10^3/uL MPV (7.4-11.4) fL Neut # (Auto) Lymph # (Auto) [place] # (Auto) Eos # (Auto) Baso # (Auto) Absolute Nucleated RBC Total Counted Band Neuts % (Manual) (0 - 10) % Abnorm Lymph % (Manual) % Metamyelocytes % ( - 0) % Nucleated RBC % Neutrophils # (Manual) (1.5-6.6) 10^3/uL Lymphocytes # (Manual) (1.5-3.5) 10^3/uL Monocytes # (Manual) (0.0-1.0) 10^3/uL Eosinophils # (Manual) (0-0.7) 10^3/uL Basophils # (Manual) (0-0.1) 10^3/uL Differential Comment Manual Slide Review WBC Morphology (NORMAL) Platelet Estimate (NORMAL) Platelet Morphology (NORMAL) RBC Morph Micro Appear (NORMAL) Bld Gas Analysis Time 0444 Sample Site LEFT RADIAL ABG pH 7.30 L (7.35-7.45) ABG pCO2 44 (34-45) mmHg ABG pO2 73 L (83-108) mmHg ABG HCO3 21.4 L (22.0-26.0) mmol/L ABG Total CO2 22.8 (21.0-29.0) mmol/L ABG O2 Saturation 95 (95-98) % ABG Base Excess -5.2 L (-2.0-3.0) mmol/L Yoel Test POSITIVE VBG pH (7.31-7.41) VBG pCO2 (41-51) mmHg VBG pO2 (25-47) mmHg VBG HCO3 (23-28) mmol/L VBG Total CO2 (24-29) mmol/L VBG O2 Saturation (60-80) % VBG Base Excess (-2 - +2) mmol/L Ionized Calcium (1.09-1.30) mmol/L Respiration Rate 28 b/min O2 Delivery Device VENTILATOR Vent Mode ASSIST/CONTROL FiO2 40.00 Tidal Volume 450 mL PEEP 5 cmH2O Sodium (135-145) mmol/L Potassium (3.5-4.5) mmol/L Chloride (101-111) mmol/L Carbon Dioxide (21-32) mmol/L Anion Gap (6-13) BUN (6-20) mg/dL Creatinine (0.6-1.3) mg/dL Estimated GFR (MDRD) (>89) Glucose (74-104) mg/dL POC Whole Bld Glucose 106 42 (70-100) mg/dL Lactic Acid (0.5-2.2) mmol/L Calcium (8.5-10.3) mg/dL Phosphorus (2.5-5.0) mg/dL Magnesium (1.7-2.3) mg/dL Total Bilirubin (0.2-1.0) mg/dL AST (10-42) IU/L ALT (10-60) IU/L Alkaline Phosphatase (42-121) IU/L Total Creatine Kinase (30-223) IU/L Troponin I High Sens (2.3-19.7) ng/L B-Natriuretic Peptide (5-100) pg/mL Total Protein (6.4-8.9) g/dL Albumin (3.2-5.5) g/dL Globulin (2.1-4.2) g/dL Albumin/Globulin Ratio (1.0-2.2) Urine Color Urine Clarity (CLEAR) Urine pH (5.0-7.5) PH Ur Specific [place] (1.002-1.030) Urine Protein (NEGATIVE) mg/dL Urine Glucose (UA) (NEGATIVE) mg/dL Urine Ketones (NEGATIVE) mg/dL Urine Occult Blood (NEGATIVE) Urine Nitrite (NEGATIVE) Urine Bilirubin (NEGATIVE) Urine Urobilinogen (NORMAL) E.U./dL Ur Leukocyte Esterase (NEGATIVE) Ur Microscopic Review Urine Culture Comments Nasal Adenovirus (PCR) Nasal B. parapertussis DNA (PCR) Nasal Coronavir 229E PCR Nasal Coronavir HKU1 PCR Nasal Coronavir NL63 PCR Nasal Coronavir OC43 PCR Nasal Enterovir/Rhinovir PCR Nasal Influenza B PCR Nasal Influenza A PCR Nasal Parainfluen 1 PCR Nasal Parainfluen 2 PCR Nasal Parainfluen 3 PCR Nasal Parainfluen 4 PCR Nasal RSV (PCR) Nasal Screen MRSA (PCR) (NEGATIVE) Nasal B.pertussis DNA PCR Nasal C.pneumoniae (PCR) Long Human Metapneumo PCR Nasal M.pneumoniae (PCR) Nasal SARS-CoV-2 (PCR) Urine Opiates Screen (NEGATIVE) Ur Buprenorphine Scrn (NEGATIVE) Ur Oxycodone Screen (NEGATIVE) Urine Methadone Screen (NEGATIVE) Urine Fentanyl Screen (NEGATIVE) Ur Barbiturates Screen (NEGATIVE) Ur Tricyclics Screen (NEGATIVE) Ur Phencyclidine Scrn (NEGATIVE) Ur Amphetamine Screen (NEGATIVE) U Methamphetamines Scrn (NEGATIVE) U Benzodiazepines Scrn (NEGATIVE) Urine Cocaine Screen (NEGATIVE) U Cannabinoids Screen (NEGATIVE) Ur Drug Screen Comment Ethyl Alcohol mg/dL 02/25/25 02/25/25 02/25/25 Range/Units 04:22 01:35 01:20 WBC 3.8 L (4.8-10.8) x10^3/uL RBC 3.20 L (4.70-6.10) 10^6/uL Hgb 8.9 L (14.0-18.0) g/dL Hct 28.3 L (42.0-52.0) % MCV 88.4 (80.0-94.0) fL MCH 27.8 (27.0-31.0) pg MCHC 31.4 L (32.0-36.0) g/dL RDW 15.0 (12.0-15.0) % Plt Count 284 (130-450) 10^3/uL MPV 9.2 (7.4-11.4) fL Neut # (Auto) 3.4 Lymph # (Auto) 0.1 L [place] # (Auto) 0.2 Eos # (Auto) 0.0 Baso # (Auto) 0.0 Absolute Nucleated RBC 0.00 Total Counted Band Neuts % (Manual) (0 - 10) % Abnorm Lymph % (Manual) % Metamyelocytes % ( - 0) % Nucleated RBC % 0.0 Neutrophils # (Manual) (1.5-6.6) 10^3/uL Lymphocytes # (Manual) (1.5-3.5) 10^3/uL Monocytes # (Manual) (0.0-1.0) 10^3/uL Eosinophils # (Manual) (0-0.7) 10^3/uL Basophils # (Manual) (0-0.1) 10^3/uL Differential Comment Manual Slide Review Indicated WBC Morphology 1+ DOHLE BODIES (NORMAL) Platelet Estimate NORMAL (130-450,000) (NORMAL) Platelet Morphology NORMAL APPEARANCE (NORMAL) RBC Morph Micro Appear 2+ ELIE CELLS (NORMAL) Bld Gas Analysis Time 0126 Sample Site LEFT RADIAL ABG pH 7.20 L* (7.35-7.45) ABG pCO2 51 H (34-45) mmHg ABG pO2 92 (83-108) mmHg ABG HCO3 20.1 L (22.0-26.0) mmol/L ABG Total CO2 21.7 (21.0-29.0) mmol/L ABG O2 Saturation 97 (95-98) % ABG Base Excess -8.2 L (-2.0-3.0) mmol/L Yoel Test POSITIVE VBG pH 7.266 L (7.31-7.41) VBG pCO2 (41-51) mmHg VBG pO2 (25-47) mmHg VBG HCO3 (23-28) mmol/L VBG Total CO2 (24-29) mmol/L VBG O2 Saturation (60-80) % VBG Base Excess (-2 - +2) mmol/L Ionized Calcium 1.25 (1.09-1.30) mmol/L Respiration Rate 28 b/min O2 Delivery Device VENTILATOR Vent Mode ASSIST/CONTROL FiO2 50.00 Tidal Volume 450 mL PEEP 5 cmH2O Sodium 137 (135-145) mmol/L Potassium 4.2 (3.5-4.5) mmol/L Chloride 107 (101-111) mmol/L Carbon Dioxide 23 (21-32) mmol/L Anion Gap 7.0 (6-13) BUN 62 H (6-20) mg/dL Creatinine 1.4 H (0.6-1.3) mg/dL Estimated GFR (MDRD) 50 L (>89) Glucose 62 L (74-104) mg/dL POC Whole Bld Glucose 98 (70-100) mg/dL Lactic Acid 1.5 (0.5-2.2) mmol/L Calcium 8.9 (8.5-10.3) mg/dL Phosphorus 5.3 H (2.5-5.0) mg/dL Magnesium 1.8 (1.7-2.3) mg/dL Total Bilirubin (0.2-1.0) mg/dL AST (10-42) IU/L ALT (10-60) IU/L Alkaline Phosphatase (42-121) IU/L Total Creatine Kinase (30-223) IU/L Troponin I High Sens 71.4 H* (2.3-19.7) ng/L B-Natriuretic Peptide (5-100) pg/mL Total Protein (6.4-8.9) g/dL Albumin (3.2-5.5) g/dL Globulin (2.1-4.2) g/dL Albumin/Globulin Ratio (1.0-2.2) Urine Color Urine Clarity (CLEAR) Urine pH (5.0-7.5) PH Ur Specific [place] (1.002-1.030) Urine Protein (NEGATIVE) mg/dL Urine Glucose (UA) (NEGATIVE) mg/dL Urine Ketones (NEGATIVE) mg/dL Urine Occult Blood (NEGATIVE) Urine Nitrite (NEGATIVE) Urine Bilirubin (NEGATIVE) Urine Urobilinogen (NORMAL) E.U./dL Ur Leukocyte Esterase (NEGATIVE) Ur Microscopic Review Urine Culture Comments Nasal Adenovirus (PCR) Nasal B. parapertussis DNA (PCR) Nasal Coronavir 229E PCR Nasal Coronavir HKU1 PCR Nasal Coronavir NL63 PCR Nasal Coronavir OC43 PCR Nasal Enterovir/Rhinovir PCR Nasal Influenza B PCR Nasal Influenza A PCR Nasal Parainfluen 1 PCR Nasal Parainfluen 2 PCR Nasal Parainfluen 3 PCR Nasal Parainfluen 4 PCR Nasal RSV (PCR) Nasal Screen MRSA (PCR) (NEGATIVE) Nasal B.pertussis DNA PCR Nasal C.pneumoniae (PCR) Long Human Metapneumo PCR Nasal M.pneumoniae (PCR) Nasal SARS-CoV-2 (PCR) Urine Opiates Screen (NEGATIVE) Ur Buprenorphine Scrn (NEGATIVE) Ur Oxycodone Screen (NEGATIVE) Urine Methadone Screen (NEGATIVE) Urine Fentanyl Screen (NEGATIVE) Ur Barbiturates Screen (NEGATIVE) Ur Tricyclics Screen (NEGATIVE) Ur Phencyclidine Scrn (NEGATIVE) Ur Amphetamine Screen (NEGATIVE) U Methamphetamines Scrn (NEGATIVE) U Benzodiazepines Scrn (NEGATIVE) Urine Cocaine Screen (NEGATIVE) U Cannabinoids Screen (NEGATIVE) Ur Drug Screen Comment Ethyl Alcohol mg/dL 02/24/25 02/24/25 02/24/25 Range/Units 23:00 19:56 18:27 WBC (4.8-10.8) x10^3/uL RBC (4.70-6.10) 10^6/uL Hgb (14.0-18.0) g/dL Hct (42.0-52.0) % MCV (80.0-94.0) fL MCH (27.0-31.0) pg MCHC (32.0-36.0) g/dL RDW (12.0-15.0) % Plt Count (130-450) 10^3/uL MPV (7.4-11.4) fL Neut # (Auto) Lymph # (Auto) [place] # (Auto) Eos # (Auto) Baso # (Auto) Absolute Nucleated RBC Total Counted Band Neuts % (Manual) (0 - 10) % Abnorm Lymph % (Manual) % Metamyelocytes % ( - 0) % Nucleated RBC % Neutrophils # (Manual) (1.5-6.6) 10^3/uL Lymphocytes # (Manual) (1.5-3.5) 10^3/uL Monocytes # (Manual) (0.0-1.0) 10^3/uL Eosinophils # (Manual) (0-0.7) 10^3/uL Basophils # (Manual) (0-0.1) 10^3/uL Differential Comment Manual Slide Review WBC Morphology (NORMAL) Platelet Estimate (NORMAL) Platelet Morphology (NORMAL) RBC Morph Micro Appear (NORMAL) Bld Gas Analysis Time 2310 Sample Site LEFT RADIAL ABG pH 7.10 L* (7.35-7.45) ABG pCO2 53 H (34-45) mmHg ABG pO2 97 (83-108) mmHg ABG HCO3 16.7 L (22.0-26.0) mmol/L ABG Total CO2 18.3 L (21.0-29.0) mmol/L ABG O2 Saturation 95 (95-98) % ABG Base Excess -13.2 L (-2.0-3.0) mmol/L Yoel Test POSITIVE VBG pH (7.31-7.41) VBG pCO2 (41-51) mmHg VBG pO2 (25-47) mmHg VBG HCO3 (23-28) mmol/L VBG Total CO2 (24-29) mmol/L VBG O2 Saturation (60-80) % VBG Base Excess (-2 - +2) mmol/L Ionized Calcium (1.09-1.30) mmol/L Respiration Rate 20 b/min O2 Delivery Device VENTILATOR Vent Mode ASSIST/CONTROL FiO2 40.00 Tidal Volume 450 mL PEEP 5 cmH2O Sodium (135-145) mmol/L Potassium (3.5-4.5) mmol/L Chloride (101-111) mmol/L Carbon Dioxide (21-32) mmol/L Anion Gap (6-13) BUN (6-20) mg/dL Creatinine (0.6-1.3) mg/dL Estimated GFR (MDRD) (>89) Glucose (74-104) mg/dL POC Whole Bld Glucose (70-100) mg/dL Lactic Acid (0.5-2.2) mmol/L Calcium (8.5-10.3) mg/dL Phosphorus (2.5-5.0) mg/dL Magnesium (1.7-2.3) mg/dL Total Bilirubin (0.2-1.0) mg/dL AST (10-42) IU/L ALT (10-60) IU/L Alkaline Phosphatase (42-121) IU/L Total Creatine Kinase (30-223) IU/L Troponin I High Sens (2.3-19.7) ng/L B-Natriuretic Peptide (5-100) pg/mL Total Protein (6.4-8.9) g/dL Albumin (3.2-5.5) g/dL Globulin (2.1-4.2) g/dL Albumin/Globulin Ratio (1.0-2.2) Urine Color YELLOW Urine Clarity CLEAR (CLEAR) Urine pH 5.0 (5.0-7.5) PH Ur Specific [place] 1.015 (1.002-1.030) Urine Protein NEGATIVE (NEGATIVE) mg/dL Urine Glucose (UA) NEGATIVE (NEGATIVE) mg/dL Urine Ketones NEGATIVE (NEGATIVE) mg/dL Urine Occult Blood NEGATIVE (NEGATIVE) Urine Nitrite NEGATIVE (NEGATIVE) Urine Bilirubin NEGATIVE (NEGATIVE) Urine Urobilinogen 0.2 (NORMAL) (NORMAL) E.U./dL Ur Leukocyte Esterase NEGATIVE (NEGATIVE) Ur Microscopic Review NOT INDICATED Urine Culture Comments NOT INDICATED Nasal Adenovirus (PCR) Nasal B. parapertussis DNA (PCR) Nasal Coronavir 229E PCR Nasal Coronavir HKU1 PCR Nasal Coronavir NL63 PCR Nasal Coronavir OC43 PCR Nasal Enterovir/Rhinovir PCR Nasal Influenza B PCR Nasal Influenza A PCR Nasal Parainfluen 1 PCR Nasal Parainfluen 2 PCR Nasal Parainfluen 3 PCR Nasal Parainfluen 4 PCR Nasal RSV (PCR) Nasal Screen MRSA (PCR) NEGATIVE (NEGATIVE) Nasal B.pertussis DNA PCR Nasal C.pneumoniae (PCR) Long Human Metapneumo PCR Nasal M.pneumoniae (PCR) Nasal SARS-CoV-2 (PCR) Urine Opiates Screen NEGATIVE (NEGATIVE) Ur Buprenorphine Scrn NEGATIVE (NEGATIVE) Ur Oxycodone Screen NEGATIVE (NEGATIVE) Urine Methadone Screen NEGATIVE (NEGATIVE) Urine Fentanyl Screen Negative (NEGATIVE) Ur Barbiturates Screen NEGATIVE (NEGATIVE) Ur Tricyclics Screen NEGATIVE (NEGATIVE) Ur Phencyclidine Scrn NEGATIVE (NEGATIVE) Ur Amphetamine Screen NEGATIVE (NEGATIVE) U Methamphetamines Scrn NEGATIVE (NEGATIVE) U Benzodiazepines Scrn NEGATIVE (NEGATIVE) Urine Cocaine Screen NEGATIVE (NEGATIVE) U Cannabinoids Screen NEGATIVE (NEGATIVE) Ur Drug Screen Comment CUTOFF CONC BELOW: Ethyl Alcohol mg/dL 02/24/25 02/24/25 02/24/25 Range/Units 18:15 17:44 17:37 WBC (4.8-10.8) x10^3/uL RBC (4.70-6.10) 10^6/uL Hgb (14.0-18.0) g/dL Hct (42.0-52.0) % MCV (80.0-94.0) fL MCH (27.0-31.0) pg MCHC (32.0-36.0) g/dL RDW (12.0-15.0) % Plt Count (130-450) 10^3/uL MPV (7.4-11.4) fL Neut # (Auto) Lymph # (Auto) [place] # (Auto) Eos # (Auto) Baso # (Auto) Absolute Nucleated RBC Total Counted Band Neuts % (Manual) (0 - 10) % Abnorm Lymph % (Manual) % Metamyelocytes % ( - 0) % Nucleated RBC % Neutrophils # (Manual) (1.5-6.6) 10^3/uL Lymphocytes # (Manual) (1.5-3.5) 10^3/uL Monocytes # (Manual) (0.0-1.0) 10^3/uL Eosinophils # (Manual) (0-0.7) 10^3/uL Basophils # (Manual) (0-0.1) 10^3/uL Differential Comment Manual Slide Review WBC Morphology (NORMAL) Platelet Estimate (NORMAL) Platelet Morphology (NORMAL) RBC Morph Micro Appear (NORMAL) Bld Gas Analysis Time Sample Site ABG pH (7.35-7.45) ABG pCO2 (34-45) mmHg ABG pO2 (83-108) mmHg ABG HCO3 (22.0-26.0) mmol/L ABG Total CO2 (21.0-29.0) mmol/L ABG O2 Saturation (95-98) % ABG Base Excess (-2.0-3.0) mmol/L Yoel Test VBG pH 7.124 L* (7.31-7.41) VBG pCO2 51.0 (41-51) mmHg VBG pO2 112.8 H (25-47) mmHg VBG HCO3 16.9 L (23-28) mmol/L VBG Total CO2 18.5 L (24-29) mmol/L VBG O2 Saturation 98.0 H (60-80) % VBG Base Excess -12.6 L (-2 - +2) mmol/L Ionized Calcium (1.09-1.30) mmol/L Respiration Rate b/min O2 Delivery Device Vent Mode FiO2 Tidal Volume mL PEEP cmH2O Sodium (135-145) mmol/L Potassium (3.5-4.5) mmol/L Chloride (101-111) mmol/L Carbon Dioxide (21-32) mmol/L Anion Gap (6-13) BUN (6-20) mg/dL Creatinine (0.6-1.3) mg/dL Estimated GFR (MDRD) (>89) Glucose (74-104) mg/dL POC Whole Bld Glucose (70-100) mg/dL Lactic Acid (0.5-2.2) mmol/L Calcium (8.5-10.3) mg/dL Phosphorus (2.5-5.0) mg/dL Magnesium (1.7-2.3) mg/dL Total Bilirubin (0.2-1.0) mg/dL AST (10-42) IU/L ALT (10-60) IU/L Alkaline Phosphatase (42-121) IU/L Total Creatine Kinase (30-223) IU/L Troponin I High Sens (2.3-19.7) ng/L B-Natriuretic Peptide 673 H (5-100) pg/mL Total Protein (6.4-8.9) g/dL Albumin (3.2-5.5) g/dL Globulin (2.1-4.2) g/dL Albumin/Globulin Ratio (1.0-2.2) Urine Color Urine Clarity (CLEAR) Urine pH (5.0-7.5) PH Ur Specific [place] (1.002-1.030) Urine Protein (NEGATIVE) mg/dL Urine Glucose (UA) (NEGATIVE) mg/dL Urine Ketones (NEGATIVE) mg/dL Urine Occult Blood (NEGATIVE) Urine Nitrite (NEGATIVE) Urine Bilirubin (NEGATIVE) Urine Urobilinogen (NORMAL) E.U./dL Ur Leukocyte Esterase (NEGATIVE) Ur Microscopic Review Urine Culture Comments Nasal Adenovirus (PCR) NOT DETECTED Nasal B. parapertussis DNA (PCR) NOT DETECTED Nasal Coronavir 229E PCR NOT DETECTED Nasal Coronavir HKU1 PCR NOT DETECTED Nasal Coronavir NL63 PCR NOT DETECTED Nasal Coronavir OC43 PCR NOT DETECTED Nasal Enterovir/Rhinovir PCR NOT DETECTED Nasal Influenza B PCR NOT DETECTED Nasal Influenza A PCR NOT DETECTED Nasal Parainfluen 1 PCR NOT DETECTED Nasal Parainfluen 2 PCR NOT DETECTED Nasal Parainfluen 3 PCR NOT DETECTED Nasal Parainfluen 4 PCR NOT DETECTED Nasal RSV (PCR) NOT DETECTED Nasal Screen MRSA (PCR) (NEGATIVE) Nasal B.pertussis DNA PCR NOT DETECTED Nasal C.pneumoniae (PCR) NOT DETECTED Long Human Metapneumo PCR NOT DETECTED Nasal M.pneumoniae (PCR) NOT DETECTED Nasal SARS-CoV-2 (PCR) NOT DETECTED Urine Opiates Screen (NEGATIVE) Ur Buprenorphine Scrn (NEGATIVE) Ur Oxycodone Screen (NEGATIVE) Urine Methadone Screen (NEGATIVE) Urine Fentanyl Screen (NEGATIVE) Ur Barbiturates Screen (NEGATIVE) Ur Tricyclics Screen (NEGATIVE) Ur Phencyclidine Scrn (NEGATIVE) Ur Amphetamine Screen (NEGATIVE) U Methamphetamines Scrn (NEGATIVE) U Benzodiazepines Scrn (NEGATIVE) Urine Cocaine Screen (NEGATIVE) U Cannabinoids Screen (NEGATIVE) Ur Drug Screen Comment Ethyl Alcohol mg/dL 02/24/25 02/24/25 02/24/25 Range/Units 17:36 17:36 17:34 WBC 12.1 H (4.8-10.8) x10^3/uL RBC 3.07 L (4.70-6.10) 10^6/uL Hgb 8.7 L (14.0-18.0) g/dL Hct 27.6 L (42.0-52.0) % MCV 89.9 (80.0-94.0) fL MCH 28.3 (27.0-31.0) pg MCHC 31.5 L (32.0-36.0) g/dL RDW 15.0 (12.0-15.0) % Plt Count 318 (130-450) 10^3/uL MPV 9.8 (7.4-11.4) fL Neut # (Auto) Not Reportable Lymph # (Auto) Not Reportable [place] # (Auto) Not Reportable Eos # (Auto) Not Reportable Baso # (Auto) Not Reportable Absolute Nucleated RBC Not Reportable Total Counted 100 Band Neuts % (Manual) 7 (0 - 10) % Abnorm Lymph % (Manual) 0 % Metamyelocytes % 8 H ( - 0) % Nucleated RBC % Not Reportable Neutrophils # (Manual) 9.2 H (1.5-6.6) 10^3/uL Lymphocytes # (Manual) 1.0 L (1.5-3.5) 10^3/uL Monocytes # (Manual) 0.7 (0.0-1.0) 10^3/uL Eosinophils # (Manual) 0.2 (0-0.7) 10^3/uL Basophils # (Manual) 0.0 (0-0.1) 10^3/uL Differential Comment MANUAL DIFFERENTIAL Manual Slide Review Indicated WBC Morphology 1+AGRANULAR/HYPOGRAN (NORMAL) Platelet Estimate NORMAL (130-450,000) (NORMAL) Platelet Morphology NORMAL APPEARANCE (NORMAL) RBC Morph Micro Appear 1+ ACANTHOCYTES 1+ ANISOCYTOSIS (NORMAL) Bld Gas Analysis Time Sample Site ABG pH (7.35-7.45) ABG pCO2 (34-45) mmHg ABG pO2 (83-108) mmHg ABG HCO3 (22.0-26.0) mmol/L ABG Total CO2 (21.0-29.0) mmol/L ABG O2 Saturation (95-98) % ABG Base Excess (-2.0-3.0) mmol/L Yoel Test VBG pH (7.31-7.41) VBG pCO2 (41-51) mmHg VBG pO2 (25-47) mmHg VBG HCO3 (23-28) mmol/L VBG Total CO2 (24-29) mmol/L VBG O2 Saturation (60-80) % VBG Base Excess (-2 - +2) mmol/L Ionized Calcium (1.09-1.30) mmol/L Respiration Rate b/min O2 Delivery Device Vent Mode FiO2 Tidal Volume mL PEEP cmH2O Sodium 134 L (135-145) mmol/L Potassium 4.1 (3.5-4.5) mmol/L Chloride 107 (101-111) mmol/L Carbon Dioxide 22 (21-32) mmol/L Anion Gap 5.0 L (6-13) BUN 61 H (6-20) mg/dL Creatinine 1.2 (0.6-1.3) mg/dL Estimated GFR (MDRD) 59 L (>89) Glucose 163 H (74-104) mg/dL POC Whole Bld Glucose (70-100) mg/dL Lactic Acid 1.4 (0.5-2.2) mmol/L Calcium 9.0 (8.5-10.3) mg/dL Phosphorus (2.5-5.0) mg/dL Magnesium 2.0 (1.7-2.3) mg/dL Total Bilirubin 0.3 (0.2-1.0) mg/dL AST 44 H (10-42) IU/L ALT 36 (10-60) IU/L Alkaline Phosphatase 142 H (42-121) IU/L Total Creatine Kinase 126 (30-223) IU/L Troponin I High Sens 5.2 (2.3-19.7) ng/L B-Natriuretic Peptide (5-100) pg/mL Total Protein 5.5 L (6.4-8.9) g/dL Albumin 3.0 L (3.2-5.5) g/dL Globulin 2.5 (2.1-4.2) g/dL Albumin/Globulin Ratio 1.2 (1.0-2.2) Urine Color Urine Clarity (CLEAR) Urine pH (5.0-7.5) PH Ur Specific [place] (1.002-1.030) Urine Protein (NEGATIVE) mg/dL Urine Glucose (UA) (NEGATIVE) mg/dL Urine Ketones (NEGATIVE) mg/dL Urine Occult Blood (NEGATIVE) Urine Nitrite (NEGATIVE) Urine Bilirubin (NEGATIVE) Urine Urobilinogen (NORMAL) E.U./dL Ur Leukocyte Esterase (NEGATIVE) Ur Microscopic Review Urine Culture Comments Nasal Adenovirus (PCR) Nasal B. parapertussis DNA (PCR) Nasal Coronavir 229E PCR Nasal Coronavir HKU1 PCR Nasal Coronavir NL63 PCR Nasal Coronavir OC43 PCR Nasal Enterovir/Rhinovir PCR Nasal Influenza B PCR Nasal Influenza A PCR Nasal Parainfluen 1 PCR Nasal Parainfluen 2 PCR Nasal Parainfluen 3 PCR Nasal Parainfluen 4 PCR Nasal RSV (PCR) Nasal Screen MRSA (PCR) (NEGATIVE) Nasal B.pertussis DNA PCR Nasal C.pneumoniae (PCR) Long Human Metapneumo PCR Nasal M.pneumoniae (PCR) Nasal SARS-CoV-2 (PCR) Urine Opiates Screen (NEGATIVE) Ur Buprenorphine Scrn (NEGATIVE) Ur Oxycodone Screen (NEGATIVE) Urine Methadone Screen (NEGATIVE) Urine Fentanyl Screen (NEGATIVE) Ur Barbiturates Screen (NEGATIVE) Ur Tricyclics Screen (NEGATIVE) Ur Phencyclidine Scrn (NEGATIVE) Ur Amphetamine Screen (NEGATIVE) U Methamphetamines Scrn (NEGATIVE) U Benzodiazepines Scrn (NEGATIVE) Urine Cocaine Screen (NEGATIVE) U Cannabinoids Screen (NEGATIVE) Ur Drug Screen Comment Ethyl Alcohol < 10.0 mg/dL Sepsis Event Note (H) Evaluation Current Stage of Sepsis: Severe sepsis Possible source of Sepsis: positive Pulmonary Sepsis Criteria Sepsis Criteria: Recorded Temperature greater than 38.3C or Less than 36C, AIRFIELD OPERATIONS SPECIALIST: altered consciousness (unrelated to primary neuro pathology) and MAP less than 65 mmHg Assessment/Plan Problem List (1) Septic shock: Impression: Pressor requirement is decreasing. He is off of epi. He is still requiring high dose of Levophed and vasopressin. Right IJ in place. Most likely source is either hip versus pulmonary. Given his respiratory failure on presentation, favoring pneumonia. Does appear to have a denser consolidation surrounding the left cardiac apex to my personal review of his x- ray. Other etiologies of shock considered including cardiogenic, obstructive, or other distributive shock's. [place] to be less likely in the setting of his septic physiology on presentation. - Continue wean pressors with MAP goal 65 - Monitor strict I/O - Wean Levophed first then vasopressin - Will likely give a 500mL bolus this morning - Continue Zosyn and vancomycin - On stress dose steroids, wean to 50 mg twice daily if responsive by the end of today - Follow-up blood cultures, NGTD - CBC a.m. (2) Pneumonia: (3) Respiratory failure: Impression: Continues to require minimal vent settings. Weaning his vent settings today somewhat for lung protective ventilation. Dropping his tidal volume to 8 cc/kg IBW without significant change to his ABG. Current settings 26/400/40/5. Continues to maintain good saturations both peripherally and on his blood gases. These correlate well. Intubated for airway protection in the setting of altered mentation and pneumonia. Sputum culture was not sent, and has been on antibiotics for greater than 12 hours. - RT following, appreciate their assistance - Patient not waking up enough to participate in SBT at this time, will continue later today - Continue at least daily awakening trials and breathing trials - Extubate when clinically appropriate - Continue antibiotics as above (4) Congestive heart failure: Impression: Possible consideration in the setting of acute hypoxemic respiratory failure as above. He has bilateral lower extremity edema. He has bilateral consolidation in his lungs, but this may be more consistent with ARDS and pneumonia. - Pending echocardiogram - Giving fluids as above - Consideration for spot diuresis respiratory status not improving (5) Anemia: Impression: Stable from day prior. No signs of active bleeding. Limited history as stated before. Hemoglobin has remained around the high eights since presentation without signs of active bleeding. Last labs from 6 years ago reveal hemoglobin of 10. Iron studies were obtained by the real estate director this education courses sales representative. These reveal TIBC 202, transferrin 144, iron undetectable. More consistent with anemia of chronic disease than iron deficiency. Ferritin was not sent. - Trend CBC a.m., transfuse Hgb <7 - Will get ferritin, try and add on today's lab - If ferritin is low, consider IV iron - Consider IV iron based on TTE results (6) Elevated troponin: Impression: Troponin elevated on trend to 71 point 4 in the morning of 02/25. Was normal on admission. Mild elevation is most consistent with demand ischemia in the setting of his shock, but will trend. Unable to assess for symptoms, given his mentation. He had arrhythmias while he was hypothermic, but these have stabilized since his temperature normalized. No evidence of ST elevations on initial EKG - Trend troponin at 1200 today - If continues to be elevated not peaked by 1200, will repeat EKG - Continue telemetry - If rising, consideration for transfer for PCI (7) DEMARIO (acute kidney injury): Impression: Unclear baseline kidney function, last known normal at 0.8. 1.2 on arrival, increased to 1.4. Suspect lagging effect from shock. - Fluids as above - Trend BMP in a.m. - Strict I/O - Avoid nephrotoxins as able (8) Hypothermia: Impression: Patient was cold on arrival. Was warmed externally. He is now euthermic. Will attempt to maintain euthymia for adequate brain healing. Avoid fevers. - As needed IV Tylenol available I spent a total of 53 minutes in the care of this patient today. A total of 42 minutes of critical care time. This time was spent reviewing labs, vital signs, imaging, interviewing and examining the patient, and discussing plan of care with them and their other care providers. Patient is admitted with severe acute illness posing risk to life and bodily function. He is intubated and sedated in the ICU. Parenteral fentanyl drip as above. Managing pressors and sedation. [id number].
[2025-02-25] MEDS: ENOXAPARIN 80 MG/0.8 ML SYRINGE SUBQ ONE (08:47)
[2025-02-25 08:56] LABS: ABG FRACTION OF INSPIRED O2 40.00; ABG MODE OF VENTILATION ASSIST/CONTROL; ABG RESPIRATORY RATE 26 b/min
[2025-02-25 08:58] LABS: ABG BASE EXCESS -6.3 mmol/L (-2.0-3.0); ABG HCO3 20.4 mmol/L (22.0-26.0); ABG OXYGEN SATURATION 96 % (95-98); ABG PCO2 41 mmHg (34-45); ABG PH 7.30 (7.35-7.45); ABG PO2 79 mmHg (83-108); ABG TCO2 21.7 mmol/L (21.0-29.0)
[2025-02-25] MEDS ORDERED: ENOXAPARIN 40 MG/0.4 ML SYRINGE SUBQ SCH (09:00)
[2025-02-25] MEDS: CARBOXYMETHYLCELLULOSE OPHTH DROPS EACHEYE PRN (11:54)
[2025-02-25] MEDS: LACTATED RINGERS 500 ML IV ONE (11:54)
--- NOTE | 2025-02-25 12:07 | PHARMACY PROGRESS NOTE ---
Best Possible Medication History Admit Date and Time: 02/24/252018 Home Medications Medication Instructions Recorded Confirmed Type ferrous gluconate 240 mg (27 mg 240 mg PO DAILY #30 ta bs 06/26/18 02/25/25 Rx iron) tablet cyanocobalamin (vitamin B-12) 1,000 mcg PO DAILY 02/2502/25/25 History 1,000 mcg tablet ibuprofen 200 mg tablet (Advil) 200 mg PO Q8H PRN pain 02/25/25 02/25/25 History multivitamin (Daily Value tablet) 1 tab PO DAILY 02/2502/25/25 History Processed by: Pharmacy (Medication reconciliation completed by [employer]) Medications reviewed in ED?: No Medication History completed: Yes Patient Interview: Pt unable to participate Secondary Source(s): Other family member (next of kin in contact list) [facility] Statement: As the person ultimately responsible for medication therapy, providers are able to order a medication from an existing home medication list in [facility] via the "Reconcile Routine" prior to Confirmation of that medication by intranet support. Such practice is discouraged except when the physician, in their clinical judgment, deems that a medical need exists for a medication without regard to previous use.
[2025-02-25 13:10] LABS: ABG BASE EXCESS -7.8 mmol/L (-2.0-3.0); ABG HCO3 18.4 mmol/L (22.0-26.0); ABG OXYGEN SATURATION 99 % (95-98); ABG PCO2 35 mmHg (34-45); ABG PH 7.33 (7.35-7.45); ABG PO2 94 mmHg (83-108); ABG TCO2 19.5 mmol/L (21.0-29.0)
[2025-02-25 13:11] LABS: ABG FRACTION OF INSPIRED O2 40.00; ABG MODE OF VENTILATION ASSIST/CONTROL; ABG RESPIRATORY RATE 12 b/min
[2025-02-25] MEDS ORDERED: CHLORHEXIDINE GLUCONATE 15 ML UDC PO ONE (14:48)
[2025-02-25] MEDS: SODIUM CHLORIDE FLUSH 0.9% 10 ML SYRINGE IVP PRN (14:52)
[2025-02-25] MEDS: CHLORHEXIDINE GLUCONATE 15 ML UDC PO SCH (14:57)
[2025-02-25] MEDS ORDERED: SODIUM CHLORIDE 0.9% 250 ML IV ONE (16:41)
[2025-02-25] MEDS: fentaNYL 2,500 MCG/250 ML 2,500 MCG/250 ML BAG IV SCH (17:12)
[2025-02-25 17:20] LABS: BUN - BLOOD UREA NITROGEN 61.0 mg/dL (6-20); CARBON DIOXIDE - CO2 25.0 mmol/L (21-32); CREATININE 1.7 mg/dL (0.6-1.3); GFR - MDRD 40.0 (>89)
[2025-02-25 17:36] LABS: TROPONIN I HIGH SENSITIVITY 141.2 ng/L (2.3-19.7)
[2025-02-25] MEDS: FUROSEMIDE 40 MG/4 ML VIAL IVP ONE (18:15)
[2025-02-25] MEDS ORDERED: VANCOMYCIN INJ 1 GM in SODIUM CHLORIDE 0.9% 250 ML IV SCH (20:00)
[2025-02-25 20:14] LABS: ABG BASE EXCESS -12.6 mmol/L (-2.0-3.0); ABG HCO3 21.2 mmol/L (22.0-26.0); ABG OXYGEN SATURATION 93 % (95-98); ABG PO2 96 mmHg (83-108); ABG TCO2 24.9 mmol/L (21.0-29.0)
[2025-02-25 20:15] LABS: ABG FRACTION OF INSPIRED O2 75.00
[2025-02-25 20:17] LABS: ABG PCO2 119 mmHg (34-45); ABG PH 6.86 (7.35-7.45)
[2025-02-25] MEDS: MINERAL OIL/PETROLAT OPHTH OINT EACHEYE PRN (20:40)
[2025-02-25] MEDS: SODIUM BICARBONATE ABBOJECT 50 MEQ/50 ML SYRINGE IVP ONE (21:17)
[2025-02-25] MEDS: SODIUM BICARBONATE 100 MEQ in DEXTROSE 5% 1,000 ML IV SCH (21:29)
[2025-02-25 21:43] LABS: ABG FRACTION OF INSPIRED O2 75.00; ABG MODE OF VENTILATION AVAPS; ABG RESPIRATORY RATE 28 b/min
[2025-02-25 21:44] LABS: ABG BASE EXCESS -8.0 mmol/L (-2.0-3.0); ABG HCO3 23.8 mmol/L (22.0-26.0); ABG OXYGEN SATURATION 99 % (95-98); ABG PO2 124 mmHg (83-108); ABG TCO2 26.9 mmol/L (21.0-29.0)
[2025-02-25 21:46] LABS: ABG PCO2 101 mmHg (34-45); ABG PH 6.98 (7.35-7.45)
--- NOTE | 2025-02-25 22:20 | XRAY Report ---
PROCEDURE: XR Chest 1V INDICATIONS: hypoxemia TECHNIQUE: One view of the chest was acquired. COMPARISON: 02/24/2025 FINDINGS: Surgical changes and devices: Endotracheal tube is present in stable position. Right IJ central venous line is stable. Overlying monitoring wires present. Lungs and pleura: Bilateral multifocal patchy alveolar opacities in the perihilar regions and retrocardiac region. No visible pleural effusions. No pneumothorax. Mediastinum: Stable cardiomediastinal contour. Central vasculature is indistinct. Bones and chest wall: Degenerative changes in the spine. Overlying soft tissues are unremarkable. IMPRESSION: Stable position of support tubes and lines. Persistent bilateral multifocal airspace opacities. Reviewed by: Marleni Wade MD on 02/25/2025 10:16 PM PST Approved by: Marleni Wade MD on 02/25/2025 10:16 PM PST Station ID: [id number]
--- NOTE | 2025-02-25 22:52 | PROVIDER PROGRESS NOTE ---
Progress Note Progress Note Progress Note: This patient has had declining respiratory status over the course of the evening. When I was called initially to the bedside his respiratory rate was quite low. He had easily visualized edema of the airway with absolutely no gag reflex. He has been unresponsive to external stimuli. His blood pressures have been low despite continued use of pressor medications. He is maxed out on norepinephrine at 30 mcg/min and is also maxed on vasopressin at 0.06 units/min. I obtained an arterial blood gas with him on high flow nasal cannula at the time that I observed his respiratory rate to be quite low. As expected he was acidotic and hypercarbic. I then administered bicarb and started the patient on BiPAP. I also changed his maintenance fluid to D5 W with 100 mill equivalents of bicarb at 50 mL an hour. At the time that I placed the patient on BiPAP, and his peripheral blood pressures began to decrease, possibly due to increase in intrathoracic pressure. I did check a chest x-ray and he was without pneumothorax. Infiltrates were still significant and present. About an hour and a half later I repeated the ABG with some improvement from a pH of 6.86 to a pH of 6.98. He remained hypercarbic although slightly less so. He was still hypotensive. Given his worsening hypotension, I considered addition of epinephrine. Discussed this with nursing and the patient had had a lot of ectopy last night with epinephrine drip. I checked dosing on norepinephrine and we can indeed go up to 40 mics per minute given the patient's body weight. We will increase norepinephrine dosing and maintain the patient on vasopressin as well. I had started hydrocortisone yesterday evening when I admitted the patient. At this point I am also escalating antibiotics with addition of meropenem. This patient has a degree of critical illness that is threatening one or more vital organ systems. There is a probability of life threatening deterioration of his condition. I spent 30 minutes of critical care time with this patient today. This included coordination of care, review and ordering of lab work and radiology studies, adjusting medications.
[2025-02-25] MEDS: MEROPENEM 1 GM in SODIUM CHLORIDE 0.9% MINIBAG 100 ML IV SCH (23:01)
--- NOTE | 2025-02-25 23:02 | XRAY Report ---
PROCEDURE: XR Chest 1V INDICATIONS: dyspnea TECHNIQUE: One view of the chest was acquired. COMPARISON: Chest radiograph from earlier same day FINDINGS: Surgical changes and devices: Patient has been extubated. Right central venous catheter remains in place and unchanged in positioning. Lungs and pleura: Lung volumes are slightly decreased compared to the prior study. No pneumothorax. No significant pleural effusion visualized. Stable appearance of multifocal patchy opacities of the bilateral perihilar regions and retrocardiac region. No new focal consolidation seen. Mild perihilar airway thickening. Mediastinum: Mediastinal contours appear normal. Heart size is stable. Bones and chest wall: No suspicious bony lesions. Overlying soft tissues appear unremarkable. IMPRESSION: Status post interval extubation. Slightly diminished lung volumes. Otherwise, no significant interval change in cardiopulmonary evaluation with persistent bilateral multifocal airspace opacities. No new focal consolidation identified. Reviewed by: Tab Rodgers MD on 02/25/2025 10:59 PM PST Approved by: Tab Rodgers MD on 02/25/2025 10:59 PM PST Station ID: [id number]
[2025-02-25 23:58] LABS: ABG FRACTION OF INSPIRED O2 50.00; ABG MODE OF VENTILATION AVAPS; ABG RESPIRATORY RATE 28 b/min
[2025-02-25 23:59] LABS: ABG BASE EXCESS -8.6 mmol/L (-2.0-3.0); ABG HCO3 21.4 mmol/L (22.0-26.0); ABG OXYGEN SATURATION 95 % (95-98); ABG PO2 72 mmHg (83-108); ABG TCO2 23.6 mmol/L (21.0-29.0)
[2025-02-26 00:01] LABS: ABG PCO2 71 mmHg (34-45); ABG PH 7.09 (7.35-7.45)
[2025-02-26 05:11] LABS: ABG BASE EXCESS -6.9 mmol/L (-2.0-3.0); ABG HCO3 21.2 mmol/L (22.0-26.0); ABG OXYGEN SATURATION 97 % (95-98); ABG PCO2 53 mmHg (34-45); ABG PH 7.21 (7.35-7.45); ABG PO2 81 mmHg (83-108); ABG TCO2 22.9 mmol/L (21.0-29.0)
[2025-02-26 05:12] LABS: ABG FRACTION OF INSPIRED O2 40.00; ABG RESPIRATORY RATE 28 b/min
[2025-02-26] MEDS: COD LIVER OIL/ZINC OXIDE 113 GM TUBE TOP PRN (05:26)
[2025-02-26 05:30] LABS: VBG PH 7.189 (7.31-7.41)
[2025-02-26 05:41] LABS: PHOSPHORUS 9.1 mg/dL (2.5-5.0)
[2025-02-26 06:55] LABS: HCT - HEMATOCRIT 28.1 % (42.0-52.0); HGB - HEMOGLOBIN 8.6 g/dL (14.0-18.0); MEAN PLATELET VOLUME 10.4 fL (7.4-11.4); NRBC ABSOLUTE COUNT (AUTO) 0.09 x10^3/uL; NUCLEATED RED BLOOD CELLS AUTO 0.5 /100WBC; PLT - PLATELET COUNT 255 10^3/uL (130-450); RED CELL DISTRIBUTION WIDTH 15.5 % (12.0-15.0)
--- NOTE | 2025-02-26 07:21 | PROVIDER PROGRESS NOTE ---
Subjective Prog Note Date Prog Note Date: 02/26/25 Prog Note Time: 07:19 Subjective Subjective: Patient had an eventful evening. Was started on BiPAP after ABG revealed respiratory acidosis. His ABG this morning is much improved. Only slight respiratory acidosis at 7.2. Levophed is increasing up to 30 mcg. His vasopressin has been also increased to 0.07 mcg based on this hospitalist titration protocol. He was started on meropenem last night. Current Medications Current Medications Current Medications: Current Medications Generic Name Dose Route Start Last Admin Trade Name Freq PRN Reason Stop Dose Admin Carboxymethylcellulose 1 drops 02/25/25 11:20 02/25/25 16:30 Carboxymethylcellulose Ophth Drops EACHEYE 1 drops PRN PRN Administration Dry Eye Chlorhexidine Gluconate 15 ml 02/25/25 21:00 02/25/25 20:36 Chlorhexidine Gluconate 15 Ml Udc PO 15 ml BID AILEEN Administration Hydrocortisone Sodium Succinate 50 mg 02/24/25 21:00 02/26/25 03:34 Hydrocortisone Succinate 100 Mg/2 Ml Vial IVP 03/01/25 15:01 50 mg Q6H AILEEN Administration Piperacillin Sod/Tazobactam 100 mls @ 25 mls/hr 02/24/25 23:00 02/26/25 06:16 Sod 3.375 gm/ Sodium Chloride IV 25 mls/hr Q8H AILEEN Administration Vasopressin 20 unit/ Dextrose 100 mls @ 6 mls/hr 02/24/25 22:00 02/26/25 03:50 IV 0.06 unit/min .[id number] AILEEN 18 mls/hr 0.02 UNIT/MIN Titration Fentanyl 2,500 mcg in 250 mls @ 7.75 mls/hr 02/25/25 16:01 02/25/25 17:12 Fentanyl IV Not Given .[id number] AILEEN Protocol 1 MCG/KG/HR Norepinephrine Bitartrate 16 250 mls @ 7.5 mls/hr 02/25/25 16:30 02/26/25 03:40 mg/ Sodium Chloride IV 30 mcg/min .[id number] AILEEN 28.13 mls/hr Protocol Titration 8 MCG/MIN Sodium Bicarbonate 100 meq/ 1,100 mls @ 50 mls/hr 02/25/25 22:00 02/25/25 21:29 Dextrose IV 50 mls/hr .Q22H AILEEN Administration Meropenem 1 gm/ Sodium 100 mls @ 200 mls/hr 02/25/25 23:00 02/26/25 00:15 Chloride IV Infused Q12H AILEEN Infusion Multi-Ingred Cream/Lotion/Oil/Oint 1 applic 02/25/25 11:20 02/25/25 20:40 Mineral Oil/Petrolat Ophth Oint EACHEYE 1 applic QPM PRN Administration Dry Eye Pantoprazole Sodium 40 mg 02/25/25 07:00 02/26/25 06:17 Pantoprazole 40 Mg Vial IVP 40 mg QDAC AILEEN Administration Sodium Chloride 10 ml 02/25/25 01:00 02/25/25 23:03 Sodium Chloride Flush 0.9% 10 Ml Syringe IVP 10 ml 0100,0900,1700 AILEEN Administration Sodium Chloride 10 ml 02/24/25 21:38 02/25/25 17:15 Sodium Chloride Flush 0.9% 10 Ml Syringe IVP 10 ml PRN PRN Administration NEEDED PER PROVIDER ORDERS Zinc Oxide 113 gm 02/25/25 19:12 02/26/25 05:26 Cod Liver Oil/Zinc Oxide 113 Gm Tube TOP 1 applic PRN PRN Administration Skin Care Objective Vital Signs/Intake & Output Vital Signs: Vital Signs x48h Temp Pulse Pulse Resp BP BP Pulse Ox 02/26/25 07:02 84 02/26/25 07:00 37.5 C 81 28 H 101/59 L 93 02/26/25 06:12 87 02/26/25 06:00 37.5 C 79 25 H 101/55 L 94 02/26/25 05:00 37.6 C 78 28 H 90/55 L 95 02/26/25 04:05 37.6 C 82 29 H 92/58 L 95 02/26/25 04:00 37.6 C 81 30 H 104/57 L 95 02/26/25 03:55 37.6 C 82 28 H 101/56 L 94 02/26/25 03:45 37.7 C 84 27 H 103/57 L 96 02/26/25 03:40 37.6 C 85 28 H 108/61 95 02/26/25 03:30 85 02/26/25 03:00 37.6 C 82 28 H 100/57 L 97 02/26/25 02:00 37.6 C 82 29 H 95/55 L 96 02/26/25 01:11 81 02/26/25 01:00 37.4 C 82 29 H 91/51 L 95 02/26/25 00:00 36.9 C 78 29 H 90/51 L 94 02/25/25 23:30 74 86/51 L Intake & Output: Intake & Output 02/23/25 02/24/25 02/25/25 02/26/25 23:59 23:59 23:59 23:59 Intake Total 936 / 936 3015 / 3015 428 / 428 Output Total 360 / 360 700 / 700 198 / 198 Balance 576 / 576 2315 / 2315 230 / 230 Weight (kg) 76.9 kg 77.5 kg 78.5 kg Lab Results 02/26/25 04:20 02/25/25 16:58 Other Labs: Lab Results x24hrs 02/26/25 02/26/25 02/26/25 Range/Units 05:51 04:55 04:30 WBC (4.8-10.8) x10^3/uL RBC (4.70-6.10) 10^6/uL Hgb (14.0-18.0) g/dL Hct (42.0-52.0) % MCV (80.0-94.0) fL MCH (27.0-31.0) pg MCHC (32.0-36.0) g/dL RDW (12.0-15.0) % Plt Count (130-450) 10^3/uL MPV (7.4-11.4) fL Bld Gas Analysis Time 0502 Sample Site LEFT RADIAL ABG pH 7.21 L (7.35-7.45) ABG pCO2 53 H (34-45) mmHg ABG pO2 81 L (83-108) mmHg ABG HCO3 21.2 L (22.0-26.0) mmol/L ABG Total CO2 22.9 (21.0-29.0) mmol/L ABG O2 Saturation 97 (95-98) % ABG Base Excess -6.9 L (-2.0-3.0) mmol/L Yoel Test POSITIVE VBG pH 7.189 L* (7.31-7.41) Ionized Calcium 1.17 (1.09-1.30) mmol/L Respiration Rate 28 b/min O2 Delivery Device BiPAP O2 Liters/Min LPM Vent Mode FiO2 40.00 Tidal Volume 450 mL PEEP cmH2O EPAP 8 cmH2O IPAP 24 cmH2O Sodium (135-145) mmol/L Potassium (3.5-4.5) mmol/L Chloride (101-111) mmol/L Carbon Dioxide (21-32) mmol/L Anion Gap (6-13) BUN (6-20) mg/dL Creatinine (0.6-1.3) mg/dL Estimated GFR (MDRD) (>89) Glucose (74-104) mg/dL POC Whole Bld Glucose 116 (70-100) mg/dL Calcium (8.5-10.3) mg/dL Phosphorus 9.1 H (2.5-5.0) mg/dL Magnesium 2.6 H (1.7-2.3) mg/dL Iron (50-212) ug/dL TIBC (250-450) ug/dL % Saturation Transferrin (203-362) mg/dL Troponin I High Sens (2.3-19.7) ng/L 02/26/25 02/26/25 02/25/25 Range/Units 04:20 00:06 23:50 WBC 17.5 H (4.8-10.8) x10^3/uL RBC 3.03 L (4.70-6.10) 10^6/uL Hgb 8.6 L (14.0-18.0) g/dL Hct 28.1 L (42.0-52.0) % MCV 92.7 (80.0-94.0) fL MCH 28.4 (27.0-31.0) pg MCHC 30.6 L (32.0-36.0) g/dL RDW 15.5 H (12.0-15.0) % Plt Count 255 (130-450) 10^3/uL MPV 10.4 (7.4-11.4) fL Bld Gas Analysis Time 2350 Sample Site LEFT RADIAL ABG pH 7.09 L* (7.35-7.45) ABG pCO2 71 H* (34-45) mmHg ABG pO2 72 L (83-108) mmHg ABG HCO3 21.4 L (22.0-26.0) mmol/L ABG Total CO2 23.6 (21.0-29.0) mmol/L ABG O2 Saturation 95 (95-98) % ABG Base Excess -8.6 L (-2.0-3.0) mmol/L Yoel Test POSITIVE VBG pH (7.31-7.41) Ionized Calcium (1.09-1.30) mmol/L Respiration Rate 28 b/min O2 Delivery Device BiPAP O2 Liters/Min LPM Vent Mode AVAPS FiO2 50.00 Tidal Volume 450 mL PEEP cmH2O EPAP cmH2O IPAP 8 cmH2O Sodium (135-145) mmol/L Potassium (3.5-4.5) mmol/L Chloride (101-111) mmol/L Carbon Dioxide (21-32) mmol/L Anion Gap (6-13) BUN (6-20) mg/dL Creatinine (0.6-1.3) mg/dL Estimated GFR (MDRD) (>89) Glucose (74-104) mg/dL POC Whole Bld Glucose 105 (70-100) mg/dL Calcium (8.5-10.3) mg/dL Phosphorus (2.5-5.0) mg/dL Magnesium (1.7-2.3) mg/dL Iron (50-212) ug/dL TIBC (250-450) ug/dL % Saturation Transferrin (203-362) mg/dL Troponin I High Sens 573.8 H* (2.3-19.7) ng/L 02/25/25 02/25/25 02/25/25 Range/Units 22:37 21:30 20:05 WBC (4.8-10.8) x10^3/uL RBC (4.70-6.10) 10^6/uL Hgb (14.0-18.0) g/dL Hct (42.0-52.0) % MCV (80.0-94.0) fL MCH (27.0-31.0) pg MCHC (32.0-36.0) g/dL RDW (12.0-15.0) % Plt Count (130-450) 10^3/uL MPV (7.4-11.4) fL Bld Gas Analysis Time 2139 2009 Sample Site LEFT RADIAL RIGHT RADIAL ABG pH 6.98 L* 6.86 L* (7.35-7.45) ABG pCO2 101 H* 119 H* (34-45) mmHg ABG pO2 124 H 96 (83-108) mmHg ABG HCO3 23.8 21.2 L (22.0-26.0) mmol/L ABG Total CO2 26.9 24.9 (21.0-29.0) mmol/L ABG O2 Saturation 99 H 93 L (95-98) % ABG Base Excess -8.0 L -12.6 L (-2.0-3.0) mmol/L Yoel Test POSITIVE POSITIVE VBG pH (7.31-7.41) Ionized Calcium (1.09-1.30) mmol/L Respiration Rate 28 b/min O2 Delivery Device BiPAP O2 Liters/Min 50.00 LPM Vent Mode AVAPS FiO2 75.00 75.00 Tidal Volume 500 mL PEEP cmH2O EPAP 8 cmH2O IPAP cmH2O Sodium (135-145) mmol/L Potassium (3.5-4.5) mmol/L Chloride (101-111) mmol/L Carbon Dioxide (21-32) mmol/L Anion Gap (6-13) BUN (6-20) mg/dL Creatinine (0.6-1.3) mg/dL Estimated GFR (MDRD) (>89) Glucose (74-104) mg/dL POC Whole Bld Glucose (70-100) mg/dL Calcium (8.5-10.3) mg/dL Phosphorus (2.5-5.0) mg/dL Magnesium (1.7-2.3) mg/dL Iron (50-212) ug/dL TIBC (250-450) ug/dL % Saturation Transferrin (203-362) mg/dL Troponin I High Sens 546.3 H* (2.3-19.7) ng/L 02/25/25 02/25/25 02/25/25 Range/Units 18:13 16:58 12:55 WBC (4.8-10.8) x10^3/uL RBC (4.70-6.10) 10^6/uL Hgb (14.0-18.0) g/dL Hct (42.0-52.0) % MCV (80.0-94.0) fL MCH (27.0-31.0) pg MCHC (32.0-36.0) g/dL RDW (12.0-15.0) % Plt Count (130-450) 10^3/uL MPV (7.4-11.4) fL Bld Gas Analysis Time 1255 Sample Site RIGHT RADIAL ABG pH 7.33 L (7.35-7.45) ABG pCO2 35 (34-45) mmHg ABG pO2 94 (83-108) mmHg ABG HCO3 18.4 L (22.0-26.0) mmol/L ABG Total CO2 19.5 L (21.0-29.0) mmol/L ABG O2 Saturation 99 H (95-98) % ABG Base Excess -7.8 L (-2.0-3.0) mmol/L Yoel Test POSITIVE VBG pH (7.31-7.41) Ionized Calcium (1.09-1.30) mmol/L Respiration Rate 12 b/min O2 Delivery Device VENTILATOR O2 Liters/Min LPM Vent Mode ASSIST/CONTROL FiO2 40.00 Tidal Volume 400 mL PEEP 5 cmH2O EPAP cmH2O IPAP cmH2O Sodium 136 (135-145) mmol/L Potassium 5.5 H (3.5-4.5) mmol/L Chloride 108 (101-111) mmol/L Carbon Dioxide 25 (21-32) mmol/L Anion Gap 3.0 L (6-13) BUN 61 H (6-20) mg/dL Creatinine 1.7 H (0.6-1.3) mg/dL Estimated GFR (MDRD) 40 L (>89) Glucose 124 H (74-104) mg/dL POC Whole Bld Glucose 114 (70-100) mg/dL Calcium 8.8 (8.5-10.3) mg/dL Phosphorus (2.5-5.0) mg/dL Magnesium (1.7-2.3) mg/dL Iron (50-212) ug/dL TIBC (250-450) ug/dL % Saturation Transferrin (203-362) mg/dL Troponin I High Sens 141.2 H* (2.3-19.7) ng/L 02/25/25 02/25/25 02/25/25 Range/Units 12:38 11:38 08:50 WBC (4.8-10.8) x10^3/uL RBC (4.70-6.10) 10^6/uL Hgb (14.0-18.0) g/dL Hct (42.0-52.0) % MCV (80.0-94.0) fL MCH (27.0-31.0) pg MCHC (32.0-36.0) g/dL RDW (12.0-15.0) % Plt Count (130-450) 10^3/uL MPV (7.4-11.4) fL Bld Gas Analysis Time 0850 Sample Site RIGHT RADIAL ABG pH 7.30 L (7.35-7.45) ABG pCO2 41 (34-45) mmHg ABG pO2 79 L (83-108) mmHg ABG HCO3 20.4 L (22.0-26.0) mmol/L ABG Total CO2 21.7 (21.0-29.0) mmol/L ABG O2 Saturation 96 (95-98) % ABG Base Excess -6.3 L (-2.0-3.0) mmol/L Yoel Test POSITIVE VBG pH (7.31-7.41) Ionized Calcium (1.09-1.30) mmol/L Respiration Rate 26 b/min O2 Delivery Device VENTILATOR O2 Liters/Min LPM Vent Mode ASSIST/CONTROL FiO2 40.00 Tidal Volume 400 mL PEEP 5 cmH2O EPAP cmH2O IPAP cmH2O Sodium (135-145) mmol/L Potassium (3.5-4.5) mmol/L Chloride (101-111) mmol/L Carbon Dioxide (21-32) mmol/L Anion Gap (6-13) BUN (6-20) mg/dL Creatinine (0.6-1.3) mg/dL Estimated GFR (MDRD) (>89) Glucose (74-104) mg/dL POC Whole Bld Glucose 76 (70-100) mg/dL Calcium (8.5-10.3) mg/dL Phosphorus (2.5-5.0) mg/dL Magnesium (1.7-2.3) mg/dL Iron (50-212) ug/dL TIBC (250-450) ug/dL % Saturation Transferrin (203-362) mg/dL Troponin I High Sens 81.6 H* (2.3-19.7) ng/L 02/25/25 Range/Units 04:22 WBC (4.8-10.8) x10^3/uL RBC (4.70-6.10) 10^6/uL Hgb (14.0-18.0) g/dL Hct (42.0-52.0) % MCV (80.0-94.0) fL MCH (27.0-31.0) pg MCHC (32.0-36.0) g/dL RDW (12.0-15.0) % Plt Count (130-450) 10^3/uL MPV (7.4-11.4) fL Bld Gas Analysis Time Sample Site ABG pH (7.35-7.45) ABG pCO2 (34-45) mmHg ABG pO2 (83-108) mmHg ABG HCO3 (22.0-26.0) mmol/L ABG Total CO2 (21.0-29.0) mmol/L ABG O2 Saturation (95-98) % ABG Base Excess (-2.0-3.0) mmol/L Yoel Test VBG pH (7.31-7.41) Ionized Calcium (1.09-1.30) mmol/L Respiration Rate b/min O2 Delivery Device O2 Liters/Min LPM Vent Mode FiO2 Tidal Volume mL PEEP cmH2O EPAP cmH2O IPAP cmH2O Sodium (135-145) mmol/L Potassium (3.5-4.5) mmol/L Chloride (101-111) mmol/L Carbon Dioxide (21-32) mmol/L Anion Gap (6-13) BUN (6-20) mg/dL Creatinine (0.6-1.3) mg/dL Estimated GFR (MDRD) (>89) Glucose (74-104) mg/dL POC Whole Bld Glucose (70-100) mg/dL Calcium (8.5-10.3) mg/dL Phosphorus (2.5-5.0) mg/dL Magnesium (1.7-2.3) mg/dL Iron < 10 L (50-212) ug/dL TIBC 202 L (250-450) ug/dL % Saturation TNP Transferrin 144 L (203-362) mg/dL Troponin I High Sens (2.3-19.7) ng/L Sepsis Event Note (H) Evaluation Current Stage of Sepsis: Severe sepsis Possible source of Sepsis: positive Pulmonary Sepsis Criteria Sepsis Criteria: Recorded Temperature greater than 38.3C or Less than 36C, PARAMEDIC INSTRUCTOR: altered consciousness (unrelated to primary neuro pathology) and MAP less than 65 mmHg Assessment/Plan Problem List (1) Septic shock: (2) Pneumonia: (3) Respiratory failure: (4) Congestive heart failure: (5) Anemia: (6) Elevated troponin: (7) DEMARIO (acute kidney injury): (8) Hypothermia:
[2025-02-26 07:22] LABS: BUN - BLOOD UREA NITROGEN 70.0 mg/dL (6-20); CARBON DIOXIDE - CO2 21.0 mmol/L (21-32); CREATININE 2.4 mg/dL (0.6-1.3); GFR - MDRD 27.0 (>89)
[2025-02-26 07:59] LABS: PLATELET ESTIMATE, MANUAL NORMAL (130-450,000) (NORMAL); RBC MORPHOLOGY (MULTIPLE) 2+ HYPOCHROMASIA (NORMAL)
[2025-02-26] MEDS: ENOXAPARIN 80 MG/0.8 ML SYRINGE SUBQ SCH (08:52)
[2025-02-26] MEDS ORDERED: ENOXAPARIN 80 MG/0.8 ML SYRINGE SUBQ SCH (09:00)
[2025-02-26 12:23] VITALS: TEMP 99.5
[2025-02-26] MEDS ORDERED: ONDANSETRON 4 MG/2 ML VIAL IVP PRN (12:26)
[2025-02-26] MEDS ORDERED: MORPHINE 2 MG/ML CARPUJECT IVP PRN (12:26)
[2025-02-26] MEDS ORDERED: LORazepam 2 MG/ML VIAL IVP PRN (12:26)
[2025-02-26] MEDS ORDERED: HALOPERIDOL 5 MG/ML VIAL IVP PRN (12:26)
[2025-02-26] MEDS ORDERED: MORPHINE SOL 10 MG/0.5 ML ORAL SYRINGE SL PRN (12:26)
[2025-02-26] MEDS ORDERED: GLYCOPYRROLATE 1 MG/5 ML VIAL SUBQ PRN (12:26)
--- NOTE | 2025-02-26 12:44 | ADVANCE CARE PLANNING NOTE ---
Advance Care Planning Planning Encounter Date: 02/26/25 Time: 12:32 Purpose: Deterioration Parties in Attendance: Patients only contact, Sarah who has housed him for several years Decisional Capacity of the Patient: Obtunded Diagnosis for Encounter (1) Septic shock: (2) Pneumonia: (3) Respiratory failure: (4) Congestive heart failure: (5) Anemia: (6) Elevated troponin: (7) DEMARIO (acute kidney injury): (8) Hypothermia: Encounter Subjective/Patient's Story: Patient is a 74-year-old [place] who has lived on [facility] for all of his life. For the better part of the last 3 decades, he has been housed on a farm here in [place]. He does not have any living relatives per his known contacts. 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 He is vibrant, working well into his 70s. He enjoyed watching movies. Objective/Medical Story: Antonio has been reasonably healthy throughout all of his life. He is had good vitality. He had good strength. His only medications were some vitamins and supplements as well as [id number] pain relievers. For unclear reasons, he started feeling unwell approximately 2 days prior to this hospitalization. He sought out help from his landlord's and friends who gave him some veterinary antibiotics. He continued to feel unwell and visit coming days, and EMS was called on the day of admission. He was minimally responsive in the field when EMS arrived, and they intubated him. He was also hypothermic down to 30 C. He has been medically stabilized here, warmed, and treated for septic shock. He was extubated on 02/25 to an oxime mask, but did not have a respiratory drive to expel adequate CO2. He was started on BiPAP overnight. The last time he received sedation was over 24 hours ago. He was sedated initially with fentanyl. This should be out of his system by now. He is failing to wake up despite this. He has not had any meaningful interaction since he was extubated. He was not following commands fully when he was extubated, but he was having some seemingly purposeful movements that in retrospect may have been more posturing. He has a rising troponin with no ST elevation on EKG. He has continued to require high dose of pressors, 30 mcg of Levophed and upwards of 0.07 mcg of vasopressin. This is despite broadening his antibiotics to meropenem. He has no pupillary response, he has upward deviating plantar reflex, and does not withdraw from pain. Goals of Care: I discussed with his only living contact, Sarah. Her partner also knows Antonio. They apparently were working on POA paperwork, but never got it notarized. She shares that Antonio would not want to suffer at the end of his life. She states that in her understanding of veterinary medicine, the most caring thing you can do for a dying creature is to keep him comfortable. She says that she thinks this is Antonio's time to do so. Antonio was a , [place] ultimate [place] was [place]. Charito is hopeful that the OR can help support that in someway. She is going to reach out to them this coming week. Plan: Patient is minimally responsive despite no sedation. I worry mostly that he has an anoxic brain injury from his prolonged downtime and hypothermia. He has a rising troponin and otherwise cardiovascular collapse. He is requiring ongoing warming here. I suspect his care is medically futile. Patient is DNR/DNI Palliative withdrawal of pressors and ventilation today Expect patient to pass before the end of day Will transfer to [facility] if he is still alive by this afternoon Comfort measures in place Code Status: Do Not Attempt Resuscitation Time spent on advance care plannin
[2025-02-26 12:47] VITALS: BP 108/58; O2SAT 97
--- NOTE | 2025-02-26 21:46 | Discharge Summary ---
Discharge Summary Admit Date: 02/24/25 Discharge Date: 02/26/25 Discharging Provider: Hiren Zapata Primary Care Provider: Jeanne Peña Code Status: Do Not Attempt Resuscitation DIAGNOSES Discharge Diagnoses with Status of Each Condition: Patient is Cause of : Hypercapnic respiratory failure in the setting of septic shock in the setting of pneumonia. Suspected that this was complicated by anoxic brain injury from prolonged hypotensive episode in the field. HPI History of Present Illness: 74-year-old male with minimal contact with the healthcare system presents to the emergency department this evening after being found in extremis by EMS. Reportedly has had minimal contact with the healthcare system. In our EMR I can see that he had a hip fracture which was repaired in 2019. (L fem neck fx repaired w hemiarthroplasty) No daily medications. He lives on a [place] farm here in [place] and apparently has lived there for about 30 years. He lives in one of the out buildings. He apparently has not been feeling well the last few days and has been treated with some veterniary antibiotics. Seen here in our ED 01/30/25 for right hip pain, imaging negative. looking at images, he apparently had repair of a right hip fracture since 2019. Reportedly EMS was called and at the time he was conscious and talking. It seems that he then started to produce some frothy sputum and became very short of breath. He was hypotensive and intubated on the scene. Apparently EMS had a CODE STATUS discussion with him and at that point he wanted everything done. Looking at the prehospital report it looks like he got 200 mg of ketamine, 200 mg of succinylcholine 5 of Versed and 100 mcg of fentanyl at intubation. I am seeing him several hours after this. In the field he had a blood pressure of 77/42 and a heart rate of 54 his O2 sat was 96%. It is unclear if this is pre or post intubation. In the emergency department Dr. Wolf has had some discussions with the people on whose farm he lives. They have known him for 30 years. They say that there is a signed but not notarized power of claim attorney. So, will need further discussions regarding decisions for his care. HOSPITAL COURSE Hospital Course: 74-year-old male who was admitted for septic shock in the setting of pneumonia. With initial concern for heart failure exacerbation. He was started on pressors and antibiotics initially on admission. He was intubated in the field. With good respiratory mechanics, he was extubated on 02/25, but had poor participation and was put back on noninvasive ventilation on the evening of 02/25 after being found to be in severe hypercapnic respiratory failure. From the time that he arrived, he never really demonstrated any purposeful movements. He had nonreactive pupils. Upward deviating plantar reflex, no gag reflex or corneal reflex. Despite being off of any sedation for over 24 hours, and having only been on fentanyl for the 24 hours prior to that, patient failed to demonstrate any significant meaningful chance of recovery. On top of this, he had a mounting troponin which when last measured was 800 (ULN for our lab is 18.4). At this point, goals of care discussion were held with his only known contact and his closest friends. These were his landlords and close friends for the past 30 years since they took him into their farm. They described that Antonio would not want such aggressive measures. He would want to be at peace when he . He did not want to suffer when he . We agreed that further care was likely futile and would only prolong suffering at the time of . Decision was made about noon today to withdraw further care. Pressors were weaned at around 1300, and the patient at 1328. ALLERGIES Allergies Allergy/AdvReac Type Severity Reaction Status Date / Time codeine AdvReac Nausea Verified 02/24/25 17:38 MEDICATIONS Ambulatory Orders Medication Instructions Recorded Confirmed ferrous gluconate 240 mg (27 mg 240 mg PO DAILY #30 ta bs 06/26/18 02/25/25 iron) tablet cyanocobalamin (vitamin B-12) 1,000 mcg PO DAILY 02/2502/25/25 1,000 mcg tablet ibuprofen 200 mg tablet (Advil) 200 mg PO Q8H PRN pain 02/25/25 02/25/25 multivitamin (Daily Value tablet) 1 tab PO DAILY 02/2502/25/25 PHYSICAL EXAM AT DISCHARGE Vital Signs: Vital Signs x48h Temp Pulse Pulse Resp BP Pulse Ox 02/26/25 12: 37.5 C 80 22 108/58 L 97 02/26/25 12:00 37.5 C 79 26 H 110/61 98 02/26/25 11:00 37.3 C 76 28 H 110/64 96 02/26/25 10:15 76 12/28/25 10:00 37.3 C 76 28 H 103/57 L 91 L 02/26/25 09:00 37.5 C 78 24 104/61 92 02/26/25 08:00 37.6 C 79 26 H 101/57 L 93 LABS 02/26/25 04:20 02/26/25 04:20 SEPSIS Current Stage of Sepsis: Severe sepsis Possible source of Sepsis: Pulmonary Sepsis Criteria: Recorded Temperature greater than 38.3C or Less than 36C, [employer]: altered consciousness (unrelated to primary neuro pathology) and MAP less than 65 mmHg TIME SPENT Time Spent in Discharge (Minutes): 52 Discharge Plan Discharge Patient Disposition: 20 Print Language: Tajik Date/Time: 02/26/25 13:28
== END 2025-02-26 13:28 | disposition expired | DRG 871 ==
LOC: ED 17:24 → SUATTDRO 20:19 → ICU 20:19
PROVIDERS: ADMIT Physician Assistant Medical; ATTEND Student in an Organized Health Care Education/Training Program
DX: A41.9 Sepsis, unspecified organism; Z96.642 Presence of left artificial hip joint; R41.82 Altered mental status, unspecified; J96.00 Acute respiratory failure, unspecified whether with hypoxia or hypercapnia; I50.9 Heart failure, unspecified; D63.8 Anemia in other chronic diseases classified elsewhere; R00.1 Bradycardia, unspecified; R79.89 Other specified abnormal findings of blood chemistry; N17.9 Acute kidney failure, unspecified; J96.02 Acute respiratory failure with hypercapnia; E87.1 Hypo-osmolality and hyponatremia; D64.9 Anemia, unspecified; E87.20 Acidosis, unspecified; R65.21 Severe sepsis with septic shock; T68.XXXA Hypothermia, initial encounter; J96.01 Acute respiratory failure with hypoxia; Z66 Do not resuscitate; G93.1 Anoxic brain damage, not elsewhere classified; R73.9 Hyperglycemia, unspecified; J18.9 Pneumonia, unspecified organism